=== PATIENT | female | born 1980 | race Caucasian/White ===

== ENCOUNTER 2018-02-10 21:11 | Emergency (ER) | payer MEDICAID, SELFPAY ==
[2018-02-10 21:12] VITALS: BP 152/82; PULSE 105; RESP 16; TEMP 36.6; O2SAT 98; BMI 53.5
[2018-02-10 22:20] VITALS: BP 138/93; PULSE 88; RESP 18; O2SAT 97
--- NOTE | 2018-02-10 22:51 | EKG12_ITS ---
Test Reason : ANXIETY Blood Pressure : / mmHG Vent. Rate : 082 BPM Atrial Rate : 082 BPM P-R Int : 154 ms QRS Dur : 082 ms QT Int : 392 ms P-R-T Axes : 031 061 044 degrees QTc Int : 457 ms Normal sinus rhythm Low voltage QRS Poor R wave progression Borderline ECG Confirmed by YVES ALVARES, MARIA TERESA ([id number]), story editor OLIVER CHAO ([id number] on 02/12/2018 2:26:36 PM Referred By: DR TAMAYO Confirmed By:MARIA TERESA MARINELLI MD
--- NOTE | 2018-02-10 22:51 | RAD_ITS ---
STUDY: X-RAY CHEST REASON FOR EXAM: Female, 37 years old. Shortness of breath. TECHNIQUE: Single AP portable view of the chest. COMPARISON: Chest and left RIBS, April 28, 2014. FINDINGS: Telemetry wires overlie the chest. The lungs are well-expanded. There is linear density at the right lung base which appears to be chronic. No new masses or infiltrates are present. There is no demonstrated pleural abnormality. Normal size heart. Normal mediastinum and katy. Normal visualized pulmonary arteries. Normal visualized aortic arch and descending thoracic aorta. The thoracic spine is obscured by the mediastinum. Normal visualized ribs, clavicles, and shoulders. There is no demonstrated abnormality of the visualized soft tissue structures of the upper abdomen. RAD/Chest 1 View (Portable) IMPRESSION: No acute cardiopulmonary disease or interval change. Electronically Signed: Gregorio Grimes DO at 23:46 EST Tel [phone], Service support ,
[2018-02-10] MEDS: LORazepam 2 MG/ML Syringe 0.5 MG IV (23:19)
[2018-02-10] MEDS: 0.9% Normal Saline 1,000 ML 150 ML IV (23:19)
[2018-02-10 23:55] LABS: Absolute Neutrophil Count 7.6 X10^3/uL (2.0-7.7); Basophil# 0.04 X10^3/uL; Basophil% 0.4 % (0-1); Eosinophil# 0.04 X10^3/uL; Eosinophils% 0.4 % (0-5); Hematocrit 42.9 % (37-47); Hemoglobin 13.8 g/dl (12.0-15.0); Lymphocyte % 21.4 % (19-41); Mean Corp Hgb Conc 32.2 g/gl (32-36); Mean Corpuscular Hgb 30.3 pg (27.0-32.0); Mean Corpuscular Volume 94.1 fL (81-99); Mean Platelet Vol. 11.4 fl (6.2-12.0); Monocyte# 0.74 X10^3/uL; Monocyte% 6.9 % (0-10); Neutrophil # 7.59 X10^3/uL (2.7-7.7); Neutrophil % 70.7 % (47-70); Platelet Count 324 K/mm3 (150-450); RBC Distribution Width CV 13.9 % (11.6-14.6); RBC Distribution Width SD 46.4 fl (35.1-43.9); Red Blood Count 4.56 M/mm3 (4.2-5.4); White Blood Count 10.7 K/mm3 (4.4-11.0)
[2018-02-10 23:56] LABS: POSITIVE COUNT NO; POSITIVE DIFFERENTIAL NO; POSITIVE MORPHOLOGY NO
[2018-02-11 00:19] LABS: Anion Gap 9 (5-15); BUN 10 mg/dL (7-18); Calcium,Total 8.4 mg/dL (8.5-10.1); Chloride 107 mmol/L (98-107); Creatinine, Serum 0.72 mg/dL (0.55-1.02); EST Glomerular Filtration Rate 96 mL/min (>60); Est Glom Filt Rate - Afr Amer 117 mL/min (>60); Glucose 105 mg/dL (74-106); Potassium 4.1 mmol/L (3.5-5.1); Sodium Level 141 mmol/L (136-145); Thyroid Stim Hormone (TSH) 2.63 uIU/mL (0.358-3.74)
--- NOTE | 2018-02-11 00:21 | ED.DCSUM_ITS ---
- ER Visit Summary Date of Service: 02/11/18 Chief Complaint: Anxiety History of Present Illness: The patient is a 37 F with history of depression and anxiety. Patient had sudden onset of unprovoked anxiety/panic attack at 2 AM this morning. She is tried various distraction and relaxation techniques but s ymptoms persist. She describes lightheadedness, occasional chest tightness and heaviness, and feeling of doom. She had been on benzodiazepines in the past for her anxiety, but has been off these medications for the last 2 years. She follows with Vanessa Cantrell at the counseling center. Physical Examination: Blood pressure is 152/82, heart rate 105. Patient is sitting upright in bed in a darkened room. She is intermittently tearful and anxious. Head and neck examination is grossly unremarkable. Heart is regular rate and rhythm. Lung sounds are clear. Abdomen is soft nontender. Psychiatric evaluation reveals no suicidal homicidal ideation. Test Results: EKG is sinus 82 with no sign of acute ischemia. CBC and chemistry studies normal. TSH normal. Chest x-ray shows no acute disease. Emergency Department Course and Treatment: Patient was given IV fluids along with 0.5 mg of IV Ativan. On repeat examination she is significantly improved. She be given a home pack of Ativan tonight and she will follow with the counseling center tomorrow. Treatment Plan: [] Disposition: Discharge Impression: Anxiety This note was generated with [employer] dictation software. It may contain incorrect words, spelling, and punctuation that were not noted in review of the chart prior to signing ED Disposition - Plan for ED Patient: Disposition: Home or Assisted Living Chief Complaint: Anxiety Instructions: ED Panic Attack Referrals: Francheska Ambriz NP-C [NON-STAFF] - 1 Day
[2018-02-11] MEDS: LORazepam 0.5 MG Tablet PO (00:40)
[2018-02-11 00:44] VITALS: BP 130/70; PULSE 88; RESP 13; O2SAT 95
== END 2018-02-11 00:45 | disposition home or self-care (01) ==
PROVIDERS: Emergency Provider Emergency Medicine
DX: F41.9 Anxiety disorder, unspecified (principal); R19.7 Diarrhea, unspecified; E66.9 Obesity, unspecified; F32.9 Major depressive disorder, single episode, unspecified; Z79.899 Other long term (current) drug therapy; Z72.0 Tobacco use
CPT/HCPCS: 71045; 80048; 84443; 85025; 93005; 96361; 96374; 99285; J7030

== ENCOUNTER 2020-04-24 23:02 | Emergency (ER) | payer MEDICAID, SELFPAY ==
[2020-04-24 23:03] VITALS: BP 160/106; PULSE 63; RESP 20; RESP 22; TEMP 36.1; O2SAT 100; BMI 58.0
--- NOTE | 2020-04-24 23:08 | RAD_ITS ---
STUDY: X-RAY - LEFT RADIUS AND ULNA REASON FOR EXAM: Female, 39 years old. Other, MULTIPLE PUNCTURE WOUNDS TO RT HAND AND LT FOREARM TECHNIQUE: 2 view(s) of the forearm. COMPARISON: None. FINDINGS: There is no demonstrated soft tissue swelling. Normal visualized radius. Normal visualized ulna. There is no demonstrated acute fracture. RAD/Forearm 2 Views IMPRESSION: Normal x-ray examination of the radius and ulna. Electronically Signed: Emiliano Busby MD at 23:46 EDT , Service support ,
--- NOTE | 2020-04-24 23:08 | RAD_ITS ---
STUDY: X-RAY - RIGHT HAND REASON FOR EXAM: Female, 39 years old. Other, MULTIPLE PUNCTURE WOUNDS TO RT HAND AND LT FOREARM TECHNIQUE: 3 view(s) of the hand. COMPARISON: None. FINDINGS: Normal radiocarpal articulation. Normal distal radioulnar joint. Normal visualized carpal bones. Normal carpal articulations Normal carpometacarpal articulation of the thumb. Normal second through fifth carpometacarpal joints. Normal metacarpi. Normal joints. No fractures seen. The soft tissue structures are unremarkable. RAD/Hand Min 3 Views IMPRESSION: Normal x-ray examination of the hand. Electronically Signed: Emiliano Busby MD at 23:47 EDT , Service support ,
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
[2020-04-24] MEDS: Lidocaine/Epi/Tetracaine 50 ML 1 APPLIC TOPICAL (23:15)
[2020-04-24] MEDS: metroNIDAZOLE 500 MG Tablet PO (23:23)
[2020-04-24] MEDS: LORazepam 0.5 MG Tablet PO (23:23)
[2020-04-24] MEDS: CEFUROXIME AXETIL 250 MG TABLET 500 MG PO (23:23)
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
[2020-04-25 00:18] VITALS: BP 143/98
[2020-04-25] MEDS: Diphth,Pertuss(Acell),Tet Vac 0.5 ML Vial IM (00:26)
== END 2020-04-25 00:29 | disposition home or self-care (01) ==
PROVIDERS: Emergency Provider Emergency Medicine
DX: S21.052A Open bite of left breast, initial encounter (principal); S51.852A Open bite of left forearm, initial encounter; S41.051A Open bite of right shoulder, initial encounter; S61.452A Open bite of left hand, initial encounter; Z23 Encounter for immunization; W54.0XXA Bitten by dog, initial encounter; Y93.9 Activity, unspecified; Y92.9 Unspecified place or not applicable; Y99.9 Unspecified external cause status; F41.9 Anxiety disorder, unspecified; F17.200 Nicotine dependence, unspecified, uncomplicated; E66.9 Obesity, unspecified
CPT/HCPCS: 12001; 73090; 73130; 90471; 90715; 99285

== ENCOUNTER 2020-08-11 21:45 | Emergency (ER) | payer MEDICAID, SELFPAY ==
[2020-08-11 21:46] VITALS: BP 173/90; PULSE 107; RESP 18; TEMP 36; O2SAT 95; BMI 54.2
--- NOTE | 2020-08-11 22:15 | EKG12_ITS ---
Test Reason : CP Blood Pressure : / mmHG Vent. Rate : 099 BPM Atrial Rate : 100 BPM P-R Int : 148 ms QRS Dur : 080 ms QT Int : 358 ms P-R-T Axes : 030 076 046 degrees QTc Int : 459 ms Normal sinus rhythm Low Voltage QRS Confirmed by YVES ALVARES, MARIA TERESA ([id number]), editor continuity and script SHAJI PEREZ ([id number]) on 08/15/2020 1:17:18 PM Referred By: ANTWAN Confirmed By:MARIA TERESA MARINELLI MD
--- NOTE | 2020-08-11 22:16 | EDS_ITS ---
HPI History of Present Illness Chief Complaint: Abd Pain Informant: patient Onset/Context/Timing Onset: Today Context: Gradual Onset Current Severity: Moderate Maximum Severity: Severe Narrative Narrative: Patient presents with right upper quadrant pain that started around 330 this afternoon. Patient just returned from a picnic. She states pain was constant and persisted. Around 830 this evening she developed nausea and vomiting. She did have some chills. She did have a bowel movement thinking that may make her feel better but no improvement in pain was noted. PFSH PFS Medical History Anxiety Depression Home Medications venlafaxine 150 mg PO DAILY 07/18/13 [History Last Taken Unknown] dicyclomine 10 mg PO TID PRN #14 cap 08/12/20 [Rx Last Taken Unknown] ondansetron 4 mg PO Q8H PRN #10 tab 08/12/20 [Rx Last Taken Unknown] Allergy/AdvReac Type Severity Reaction Status Date / Time Penicillins Allergy Mild Itching Verified 02/10/18 21:15 Surgical History History of cholecystectomy Social History Smoking Status: Current every day smoker tobacco type: cigarettes ROS ROS ED Constitutional Constitutional ED: Denies chills or fever(s) Eyes Eyes: Denies change in vision ENT ENT ED: Denies sore throat Cardiovascular Cardiovascular: Denies chest pain Respiratory/Chest Respiratory/Chest: Denies cough or dyspnea Gastrointestinal Gastrointestinal: Reports abdominal pain, nausea and vomiting; Denies diarrhea Genitourinary Genitourinary ED: Denies dysuria Musculoskeletal Musculoskeletal: Denies back pain Integumentary Denies rash Neurologic Neurologic: Denies headache(s) or weakness Psychiatric Psychiatric: Denies anxiety or depression Endocrine Endocrinology: Denies polydipsia or polyuria Allergic/Immunologic Allergic/Immunologic ED: Denies urticaria EXAM Physical Exam Const Vital Signs: 08/11/20 21:46 08/11/20 23:31 08/12/20 01:37 Temperature 96.8 F L Temperature Source Temporal Pulse Rate 107 H 84 89 Respiratory Rate 18 18 16 Blood Pressure 173/90 H 156/96 H 148/92 H Blood Pressure Mean 117 116 Pulse Ox 95 93 94 Oxygen Delivery Method Room Air Room Air Positive well nourished and well developed General Appearance ED: well developed HEENT Reports normocephalic and head/scalp atraumatic Eyes PERRL and EOMs intact bilaterally Neck supple Chest Wall inspection of chest normal and palpation of chest normal Resp normal respiratory effort and clear to auscultation bilaterally Cardio regular rate and regular rhythm GI Auscultation: hypoactive bowel sounds Palpation: soft and tender RUQ; Negative for guarding or rebound tenderness present Back/Spine no CVA tenderness Extremity normal to inspection Neuro oriented x3 and no sensory deficits noted Sensorium / Orientation: alert Motor Exam: strength 5/5 throughout Psych mental status grossly normal Skin no rashes or lesions noted MDM MDM MDM Narrative Medical decision making narrative: Patient was given morphine and Zofran along with IV fluids. Labs and CT scan are obtained. Lab Data Attestation: I reviewed the patient's lab results. Labs: Laboratory Results - last 24 hr 08/11/20 08/11/20 08/11/20 22:02 22:02 22:02 WBC 11.3 H RBC 5.07 Hgb 14.8 Hct 47.2 H MCV 93.1 MCH 29.2 MCHC 31.4 L RDW Std Deviation 49.7 H RDW Coeff of Tom 14.6 Plt Count 393 MPV 11.2 Immature Gran % (Auto) 0.400 Neut % (Auto) 71.3 H Lymph % (Auto) 21.1 [place] % (Auto) 6.2 Eos % (Auto) 0.5 Baso % (Auto) 0.5 Absolute Neuts (auto) 8.0 H Absolute Lymphs (auto) 2.38 Nucleated RBC % 0 Sodium 137 Potassium 3.9 Chloride 101 Carbon Dioxide 28.0 Anion Gap 8 BUN 11 Creatinine 1.02 Estim Creat Clear Calc 65.31 Est GFR (MDRD) Af Amer 76 Est GFR (MDRD) Non-Af 63 BUN/Creatinine Ratio 10.8 Glucose 128 H Calcium 9.0 Total Bilirubin 0.50 Direct Bilirubin 0.11 AST 19 ALT 16 Alkaline Phosphatase 112 Troponin I High Sens < 3.0 L Total Protein 8.1 Albumin 3.8 Globulin 4.3 H Lipase 68 L Serum , Qual NEGATIVE Radiography Diagnostic Testing: Radiology Impression Abdomen/Pelvis CT 08/12/20 22:15 IMPRESSION: Findings suggestive of enteritis versus early or partial small bowel obstruction. No acute appendicitis. Mild free fluid in the pelvis, etiology indeterminate. Nonvisualization of gallbladder, correlation with history of cholecystectomy. Otherwise unremarkable abdominal viscera. Electronically Signed: Chastity Lechuga MD at 0:49 EDT , Service support , EKG Initial EKG: Attestation: I personally reviewed and interpreted this EKG as follows: Interpretation: Sinus Rhythm (Sinus at 99 with no acute ischemia.) Treatment and Re-Evaluation Comments:: Lab work is largely unremarkable. Mild elevation in white count. Normal LFTs and lipase. CT scan reveals evidence of enteritis versus early or partial small bowel obstruction. Patient did have a bowel movement today. I do not appreciate significant air-fluid levels. I believe her symptoms and presentation are more consistent with enteritis. This was discussed with the patient and she is in agreement. She will be treated with analgesics, Bentyl, and antiemetics. She is given return instructions. Discharge Plan Triage Chief Complaint: Abd Pain ED Provider: Estrellita Kumar Dx/Rx/DC Orders Clinical Impression: Abdominal pain, Enteritis Instructions: ED Abdominal Pain Unkn Cause Fem, ED Food Poison Or Gastroenteritis Prescriptions: New dicyclomine 10 mg capsule 10 mg PO TID PRN (Reason: abd pain) Qty: 14 RF: 0 ondansetron 4 mg tablet,disintegrating 4 mg PO Q8H PRN (Reason: nausea and vomiting) Qty: 10 RF: 0 No Action venlafaxine 25 MG tablet 150 mg PO DAILY RF: 0 Primary Care Provider: Care Physician,No Primary Referrals: Maggie Magaña MD [STAFF PHYSICIAN] - 1 Week if not improving Care Physician,No Primary [Primary Care Provider] - Disposition Disposition: Home, Self Care Discharge Date/Time: 08/12/20 01:40
[2020-08-11] MEDS: Ondansetron 4 MG/2 ML Vial IV (22:27)
[2020-08-11] MEDS: 0.9% Normal Saline 1,000 ML 150 ML IV (22:27)
[2020-08-11] MEDS: Morphine 4 MG/ML Syringe IV (22:29)
[2020-08-11 22:37] LABS: AST(SGOT) 19 U/L (15-37); Alanine Aminotransfer ALT/SGPT 16 U/L (13-56); Albumin, Serum 3.8 g/dL (3.2-5.0); Alkaline Phosphatase 112 U/L (45-117); Anion Gap 8 (5-15); BUN 11 mg/dL (7-18); BUN/Creat Ratio 10.8 RATIO (10-20); Bilirubin, Direct 0.11 mg/dL (0.00-0.30); Chloride 101 mmol/L (98-107); Creatinine, Serum 1.02 mg/dL (0.55-1.02); EST Glomerular Filtration Rate 63 mL/min (>60); Est Glom Filt Rate - Afr Amer 76 mL/min (>60); Estimated Creatinine Clearance 65.31 ml/min; Globulin 4.3 g/dL (2.2-4.2); Glucose 128 mg/dL (74-106); Lipase 68 U/L (73-393); Potassium 3.9 mmol/L (3.5-5.1); Protein, Total 8.1 g/dL (6.4-8.2); Sodium Level 137 mmol/L (136-145); Troponin-I HS < 3.0 pg/mL (3.0-53.7)
[2020-08-11 22:39] LABS: Absolute Lymphocyte Count 2.38 X10^3/uL (0.83-4.51); Basophil# 0.06 X10^3/uL; Basophil% 0.5 % (0-1); Eosinophil# 0.06 X10^3/uL; Eosinophils% 0.5 % (0-5); Hematocrit 47.2 % (37-47); Hemoglobin 14.8 g/dL (12.0-15.0); Lymphocyte # 2.38 X10^3/ul (0.83-4.51); Lymphocyte % 21.1 % (19-41); Mean Corp Hgb Conc 31.4 g/dL (32-36); Mean Corpuscular Hgb 29.2 pg (27.0-32.0); Mean Corpuscular Volume 93.1 fL (81-99); Mean Platelet Vol. 11.2 fl (6.2-12.0); Monocyte% 6.2 % (0-10); NRBC Flagged by Analyzer 0 % (0-5); Neutrophil # 8.04 X10^3/uL (2.7-7.7); Neutrophil % 71.3 % (47-70); Platelet Count 393 K/mm3 (150-450); RBC Distribution Width CV 14.6 % (11.6-14.6); RBC Distribution Width SD 49.7 fl (35.1-43.9); Red Blood Count 5.07 M/mm3 (4.2-5.4); White Blood Count 11.3 K/mm3 (4.4-11.0)
[2020-08-11 22:49] LABS: Internal QC Validated? YES +Cl - CLEAR BKGD; Pregnancy, Serum, hCG Quali. NEGATIVE Negative
[2020-08-11] MEDS: HYDROmorphone 0.5 MG/0.5 ML SYRINGE IV (23:17)
[2020-08-11 23:31] VITALS: BP 156/96; PULSE 84; RESP 18; O2SAT 93
[2020-08-12 01:37] VITALS: BP 148/92; PULSE 89; RESP 16; O2SAT 94
--- NOTE | 2020-08-12 22:15 | CT_ITS ---
STUDY: CT ABDOMEN AND PELVIS WITH CONTRAST REASON FOR EXAM: Female, 39 years old. abd pain -- IV PO Contrast RADIATION DOSAGE (If Supplied By Facility): CTDIvol = ( 20.40 ) mGy, DLP = ( 1355.41 ) mGycm TECHNIQUE: Transaxial images were obtained from the dome of the diaphragm to the symphysis pubis without oral contrast. Oral and amp; IV Gastrografin and amp; 100mL Isovue-300 was administered. Sagittal and coronal images were reconstructed. Individualized dose optimization techniques were used for this CT. COMPARISON: None. FINDINGS: The visualized lung bases are unremarkable. The visualized portions of the heart are within normal limits. Normal liver. The gallbladder is not visualized suggestive of previous cholecystectomy. Normal spleen. Normal pancreas. Normal bilateral adrenal glands. Normal right kidney. Normal left kidney. Normal visualized stomach. Multilevel loops of mid proximal small bowel distended up to a maximum diameter of 2.7 cm with borderline thickening of the wall. The distal small bowel loops are decompressed, combination of findings suggestive of partial small bowel obstruction or enteritis. The colon is decompressed. The appendix is visualized and appears normal. Normal abdominal aorta. Normal inferior vena cava. Normal retroperitoneum. Normal urinary bladder. Anteverted uterus. Mild free fluid in the pelvis. Normal abdominal wall. Normal osseous structures. CT/Abdomen/Pelvis WITH Contrast IMPRESSION: Findings suggestive of enteritis versus early or partial small bowel obstruction. No acute appendicitis. Mild free fluid in the pelvis, etiology indeterminate. Nonvisualization of gallbladder, correlation with history of cholecystectomy. Otherwise unremarkable abdominal viscera. Electronically Signed: Chastity Lechuga MD at 0:49 EDT , Service support ,
== END 2020-08-12 01:40 | disposition home or self-care (01) ==
PROVIDERS: Emergency Provider Emergency Medicine
DX: K52.9 Noninfective gastroenteritis and colitis, unspecified (principal); F32.9 Major depressive disorder, single episode, unspecified; F41.9 Anxiety disorder, unspecified; F17.210 Nicotine dependence, cigarettes, uncomplicated; Z79.899 Other long term (current) drug therapy; Z90.49 Acquired absence of other specified parts of digestive tract
CPT/HCPCS: 74177; 80048; 80076; 83690; 84484; 84703; 85025; 93005; 96361; 96365; 96375; 99284; J7030; Q9967; A4216; J2405

== ENCOUNTER 2021-04-14 09:50 | Emergency (ER) | payer MEDICAID, SELFPAY ==
[2021-04-14 09:51] VITALS: BP 166/108; PULSE 100; RESP 18; TEMP 36.7; O2SAT 100; BMI 53.6
--- NOTE | 2021-04-14 10:26 | ED.VIS.DENTA ---
HPI History of Present Illness Chief Complaint: Dental Informant: patient Onset/Context/Timing Onset: Days (5) Context: Gradual Onset Timing: Continuous Quality: Radiant Location: Left lower premolar Worsened by: Cold air Relieved by: - (Nothing) Narrative Narrative: Patient presents with dental pain that has been getting worse over the past 5 days. Patient states it is over the left lower premolar area. Patient states it is worse when is exposed to cold. Patient states nothing has been helping. Patient states she has been taking Tylenol and Orajel with no relief. Patient admits to some mild swelling of her lower jaw. Patient denies any fevers or chills. Patient admits to some cold sensitivity. Patient describes her pain as radiant. Patient denies any difficulty breathing or difficulty swallowing. Patient states she went to an urgent care and was given a prescription for clindamycin. Patient states she was not given a prescription for anything for pain. [facility] Medical History (Updated 04/14/21 @ 10:[address] Gustavo Multani DO) Anxiety Depression Home Medications venlafaxine 150 mg PO DAILY 07/18/13 [History Last Taken Unknown] dicyclomine 10 mg PO TID PRN #14 cap 08/12/20 [Rx Last Taken Unknown] ondansetron 4 mg PO Q8H PRN #10 tab 08/12/20 [Rx Last Taken Unknown] hydrocodone-acetaminophen 1 tab PO Q8H PRN PRN 2 Days #6 tablet 04/14/21 [Rx Last Taken Unknown] Allergy/AdvReac Type Severity Reaction Status Date / Time Penicillins Allergy Mild Itching Verified 04/14/21 09:53 Surgical History (Updated 04/14/21 @ 10:[address] Gustavo Multani DO) History of cholecystectomy Hx of dilation and curettage Hx of tonsillectomy Hx of tubal ligation Social History Smoking Status: Current every day smoker tobacco type: cigarettes ROS ROS ED Constitutional Constitutional ED: Denies chills or fever(s) Eyes Eyes: Denies blurry vision or change in vision ENT ENT ED: Denies rhinorrhea or sore throat Cardiovascular Cardiovascular: Denies chest pain or palpitations Respiratory/Chest Respiratory/Chest: Denies cough or dyspnea Gastrointestinal Gastrointestinal: Reports nausea and vomiting Genitourinary Genitourinary ED: Denies dysuria or hematuria Musculoskeletal Musculoskeletal: Denies back pain or neck pain Integumentary Denies abscess or rash Neurologic Neurologic: Reports headache(s); Denies weakness Psychiatric Psychiatric: Reports anxiety Allergic/Immunologic Allergic/Immunologic ED: Denies mouth swelling or urticaria EXAM Physical Exam Const Vital Signs: 04/14/21 09:51 Temperature 98.1 F Temperature Source Temporal Pulse Rate 100 Respiratory Rate 18 Blood Pressure 166/108 H Blood Pressure Mean 127 Pulse Ox 100 Oxygen Delivery Method Room Air Positive well nourished, well developed and obese General Appearance ED: well developed and NAD Nutritional Appearance: obese HEENT HEENT Narrative: There is dental caries noted over the left lower first premolar and canine teeth. There is some mild gingival edema around this area. There is tenderness to percussion over these teeth. There is no sublingual edema or erythema. Oral mucosa is pink and moist. Oropharynx is clear. Airway is patent. Mouth ED: Yes oral and palatal mucosa normal, Yes lips normal and Yes tongue normal Mouth: oral and palatal mucosa normal, lips normal and tongue normal Teeth and Gingiva: caries Neck no lymphadenopathy, supple and no JVD General: Negative for anterior neck swelling or submandibular swelling Neuro oriented x3, CN's II-XII intact bilaterally, moves all extremities, no focal motor deficits and no sensory deficits noted Sensorium / Orientation: alert Psych mental status grossly normal MDM MDM MDM Narrative Medical decision making narrative: Patient was instructed to continue her clindamycin as prescribed. Patient was given a prescription for a short course of [place]. Patient was instructed to follow-up with a dentist as soon as possible. Patient understood and was agreeable with the plan. All questions were answered. Discharge Plan Triage Chief Complaint: Dental ED Provider: Gustavo Multani Dx/Rx/DC Orders Clinical Impression: Infected dental caries Instructions: ED Dental Pain Prescriptions: New hydrocodone-acetaminophen [hydrocodone-acetaminophen] 1 TABLET tablet 1 tab PO Q8H PRN PRN (Reason: Pain) 2 Days Qty: 6 RF: 0 No Action venlafaxine 25 MG tablet 150 mg PO DAILY RF: 0 dicyclomine 10 mg capsule 10 mg PO TID PRN (Reason: abd pain) Qty: 14 RF: 0 ondansetron 4 mg tablet,disintegrating 4 mg PO Q8H PRN (Reason: nausea and vomiting) Qty: 10 RF: 0 Primary Care Provider: Care Physician,No Primary Referrals: Care Physician,No Primary [Primary Care Provider] - Disposition Disposition: Home, Self Care
== END 2021-04-14 10:48 | disposition home or self-care (01) ==
LOC: ED 10:38
PROVIDERS: Emergency Provider Emergency Medicine; Visit Provider Emergency Medicine
DX: K02.9 Dental caries, unspecified (principal); R11.2 Nausea with vomiting, unspecified; R51.9 Headache, unspecified; F17.210 Nicotine dependence, cigarettes, uncomplicated
CPT/HCPCS: 99282

== ENCOUNTER 2022-03-20 07:59 | Emergency (ER) | payer MEDICAID, SELFPAY ==
[2022-03-20 08:01] VITALS: BP 141/92; PULSE 108; RESP 16; TEMP 35.3; O2SAT 99; BMI 56.3
[2022-03-20] MEDS: Clindamycin HCl 150 MG Capsule 300 MG PO (08:49)
[2022-03-20] MEDS: Diphth,Pertuss(Acell),Tet Vac 0.5 ML Vial IM (08:49)
--- NOTE | 2022-03-20 09:27 | EDS_ITS ---
HPI History of Present Illness Chief Complaint: Cellulitis Informant: patient Onset/Context/Timing Onset: Days (5) Context: Gradual Onset Timing: Continuous Quality: Pressure, dull Location: Distal phalanx right index finger Worsened by: Palpation Relieved by: Nothing Narrative Narrative: Patient presents with redness and swelling to her distal phalanx of her right index finger that has been getting worse over the last 5 days. Patient states has been constant. Patient states it is gradually getting worse. Patient states that she noted some swollen lymph nodes in her right axilla today. Patient admits to some tingling over the tip of her finger. Patient denies any weakness. Patient states her pain is worse whenever she touches it or bumps it on anything. Patient denies any discharge or drainage. Patient denies any fevers or chills. PFSH PFS Medical History Anxiety Depression Home Medications venlafaxine 25 mg tablet 150 mg PO DAILY 07/18/13 [History Last Taken Unknown] dicyclomine 10 mg capsule 10 mg PO TID PRN abd pain #14 caps 08/12/20 [Rx Last Taken Unknown] ondansetron 4 mg disintegrating tablet 4 mg PO Q8H PRN nausea and vomiting #10 tabs 08/12/20 [Rx Last Taken Unknown] hydrocodone-acetaminophen 5-325mg 5mg-325mg 1 tab PO Q8H PRN PRN Pain 2 days #6 TABLETS 04/14/21 [Rx Last Taken Unknown] clindamycin HCl 150 mg capsule 450 mg PO TID 10 days #90 CAPSULES 03/20/22 [Rx Last Taken Unknown] Allergy/AdvReac Type Severity Reaction Status Date / Time Penicillins Allergy Mild Itching Verified 03/20/22 08:00 Surgical History History of cholecystectomy Hx of dilation and curettage Hx of tonsillectomy Hx of tubal ligation Social History Smoking Status: Current every day smoker tobacco type: cigarettes ROS ROS ED Constitutional Constitutional ED: Denies chills or fever(s) Eyes Eyes: Denies blurry vision or change in vision ENT ENT ED: Denies rhinorrhea or sore throat Cardiovascular Cardiovascular: Denies chest pain or palpitations Respiratory/Chest Respiratory/Chest: Denies cough or dyspnea Gastrointestinal Gastrointestinal: Denies nausea or vomiting Genitourinary Genitourinary ED: Denies dysuria or hematuria Musculoskeletal Musculoskeletal: Denies back pain or neck pain Integumentary Reports abscess and rash Neurologic Neurologic: Denies headache(s) or weakness Allergic/Immunologic Allergic/Immunologic ED: Denies mouth swelling or urticaria EXAM Physical Exam Const Vital Signs: 03/20/22 08:01 Temperature 95.6 F L Temperature Source Temporal Pulse Rate 108 H Respiratory Rate 16 Blood Pressure 141/92 H Blood Pressure Mean 108 Pulse Ox 99 Oxygen Delivery Method Room Air Positive well nourished, well developed and obese General Appearance ED: well developed and NAD Nutritional Appearance: obese HEENT Reports moist mucous membranes Neck supple and no JVD Extremity Extremity Narrative: There is tenderness, edema, and erythema over the distal phalanx of the right index finger. There is mild fluctuance along the eponychium. There is no active discharge or drainage. Sensation was intact to light touch in all digits. Capillary refill was less than 2 seconds in all digits. There is no t enderness along the flexor tendon. There is no fusiform swelling. There is good range of motion in flexion extension of the MP, PIP, and DIP joints. General Extremety ED: Yes edema and tenderness General Extremity: edema Neuro oriented x3, CN's II-XII intact bilaterally and no sensory deficits noted Sensorium / Orientation: alert Motor Exam: strength 5/5 throughout Psych mental status grossly normal MDM MDM MDM Narrative Medical decision making narrative: Differential diagnosis includes eponychia, paronychia, felon, and cellulitis. Patient was advised of the need for incision and drainage. Patient is agreeable with this. Informed consent was signed. The right index finger was cleaned and anesthetized with 1% lidocaine via digital block. A small incision was made over the lateral aspect of the distal phalanx of the right index finger. There is no purulent drainage noted. Bacitracin dressing was applied. Patient was given a dose of clindamycin here. Patient was given a prescription for clindamycin. Patient was instructed to keep the area clean. Patient was instructed to follow-up with her primary care physician in 5 to 7 days. Patient understood and was agreeable with the plan. All questions were answered. Discharge Plan Triage Chief Complaint: Cellulitis ED Provider: Gustavo Multani Dx/Rx/DC Orders Clinical Impression: Felon of finger of right hand, Morbid obesity with BMI of 50.0-59.9, adult Instructions: ED Abscess Incision And Drainage, ED Paronychia of the Finger or Toe Prescriptions: New clindamycin HCl 150 mg capsule 450 mg PO TID 10 Days Qty: 90 0RF No Action venlafaxine 25 MG tablet 150 mg PO DAILY dicyclomine 10 mg capsule 10 mg PO TID PRN (Reason: abd pain) Qty: 14 0RF ondansetron 4 mg tablet,disintegrating 4 mg PO Q8H PRN (Reason: nausea and vomiting) Qty: 10 0RF hydrocodone-acetaminophen [hydrocodone-acetaminophen] 1 TABLET tablet 1 tab PO Q8H PRN PRN (Reason: Pain) 2 Days Qty: 6 0RF Primary Care Provider: Care Physician,No Primary Referrals: Care Physician,No Primary [Primary Care Provider] - Disposition Disposition: Home, Self Care
[2022-03-20] MEDS: Lidocaine 1% (20 ml mdv) 20 ML Vial INFILT (09:45)
== END 2022-03-20 09:59 | disposition home or self-care (01) ==
PROVIDERS: Emergency Provider Emergency Medicine; Visit Provider Emergency Medicine
DX: L03.011 Cellulitis of right finger (principal); E66.01 Morbid (severe) obesity due to excess calories; Z68.43 Body mass index [BMI] 50.0-59.9, adult; F17.210 Nicotine dependence, cigarettes, uncomplicated; Z23 Encounter for immunization
CPT/HCPCS: 26010; 10060; 90715; 99283

== ENCOUNTER 2022-03-24 10:52 | Emergency (ER) | payer MEDICAID, SELFPAY ==
[2022-03-24 10:53] VITALS: BP 164/99; PULSE 97; RESP 18; TEMP 35.5; O2SAT 99; BMI 56.2
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
--- NOTE | 2022-03-24 11:15 | RAD_ITS ---
STUDY: X-RAY - LEFT FOOT CLINICAL: Female, 41 years old. Pain following a fall. TECHNIQUE: 3 view(s) of the foot. COMPARISON: None. FINDINGS: Normal talus, calcaneus, and tarsal bones. Normal visualized subtalar, talonavicular, calcaneocuboid, tarsal and tarsometatarsal articulations. Normal metatarsi. Normal metatarsophalangeal joint of the great toe. Normal tibial and fibular sesamoid bones. Normal interphalangeal joint of the great toe. Normal phalanges of the great toe. Normal second through fifth metatarsophalangeal joints. Normal interphalangeal joints and phalanges of the lesser toes. Soft tissue swelling. RAD/Foot min 3 Views IMPRESSION: Soft tissue swelling. No fracture is seen. Electronically Signed: Rudy Sanders MD at 11:57 EST ,
== END 2022-03-24 11:52 | disposition home or self-care (01) ==
PROVIDERS: Emergency Provider Emergency Medicine; Visit Provider Emergency Medicine
DX: S90.32XA Contusion of left foot, initial encounter (principal); F17.210 Nicotine dependence, cigarettes, uncomplicated; R07.9 Chest pain, unspecified; W01.0XXA Fall on same level from slipping, tripping and stumbling without subsequent striking against object, initial encounter
CPT/HCPCS: 73630; 99283

== ENCOUNTER 2022-06-03 10:14 | Emergency (ER) | payer MEDICAID, SELFPAY ==
[2022-06-03 10:14] VITALS: BP 148/108; PULSE 108; RESP 16; TEMP 36.4; O2SAT 97; BMI 55.6
--- NOTE | 2022-06-03 10:41 | ED.VIS.CHEST ---
HPI History of Present Illness Chief Complaint: Chest Pain Informant: patient Onset/Context/Timing Onset: Days Activity at onset: gradual Timing: Continuous Quality: Positive for Sharp and Stabbing Location: Right Parasternal Worsened By: Nothing Relieved By: Nothing Associated Symptoms: Positive for Nausea, Diaphoresis and Palpitations; Negative for Vomiting, Dyspnea, Cough, Fever, Lightheadedness or Acid Reflux Narrative Narrative: Patient presents with chest pain that has been constant for the past couple days. Patient states it came on gradually. Patient describes it as a stabbing sensation. Patient states it is over the right parasternal area. Patient states it radiates into her back. Patient states nothing makes it better nothing makes it worse. Patient admits to some nausea but denies any vomiting. Patient does admit to some diaphoresis and palpitations. Patient denies any cough or shortness of breath. Patient denies any fevers or chills. CVD Risk Factors: Positive for Family History 1' </=55 and Smoking; Negative for Hypertension, Diabetes or Hypercholesterolemia PE Risk Factors: Negative for Recent Travel/Surgery, Recent Immobilization, Prior DVT or PE or Cancer [facility] Medical History Anxiety Depression Home Medications venlafaxine 25 mg tablet 150 mg PO DAILY 07/18/13 [History Last Taken Unknown] dicyclomine 10 mg capsule 10 mg PO TID PRN abd pain #14 caps 08/12/20 [Rx Last Taken Unknown] ondansetron 4 mg disintegrating tablet 4 mg PO Q8H PRN nausea and vomiting #10 tabs 08/12/20 [Rx Last Taken Unknown] hydrocodone-acetaminophen 5-325mg 5mg-325mg 1 tab PO Q8H PRN PRN Pain 2 days #6 TABLETS 04/14/21 [Rx Last Taken Unknown] clindamycin HCl 150 mg capsule 450 mg PO TID 10 days #90 CAPSULES 03/20/22 [Rx Last Taken Unknown] Allergy/AdvReac Type Severity Reaction Status Date / Time Penicillins Allergy Mild Itching Verified 06/03/22 10:14 Surgical History History of cholecystectomy Hx of dilation and curettage Hx of tonsillectomy Hx of tubal ligation Social History Smoking Status: Current every day smoker tobacco type: cigarettes ROS ROS ED Constitutional Constitutional ED: Denies chills or fever(s) Eyes Eyes: Denies blurry vision or change in vision ENT ENT ED: Denies rhinorrhea or sore throat Cardiovascular Cardiovascular: Reports chest pain and palpitations Respiratory/Chest Respiratory/Chest: Denies cough or dyspnea Gastrointestinal Gastrointestinal: Reports nausea; Denies abdominal pain or vomiting Genitourinary Genitourinary ED: Denies dysuria or hematuria Musculoskeletal Musculoskeletal: Reports back pain; Denies neck pain Integumentary Denies abscess or rash Neurologic Neurologic: Denies headache(s) or weakness Allergic/Immunologic Allergic/Immunologic ED: Denies mouth swelling or urticaria EXAM Physical Exam Const Vital Signs: 06/03/22 10:14 06/03/22 11:13 06/03/22 11:17 Temperature 97.6 F L Temperature Source Temporal Pulse Rate 108 H 89 Respiratory Rate 16 18 Blood Pressure 148/108 H 152/97 H Blood Pressure Mean 121 115 Pulse Ox 97 98 Oxygen Delivery Method Room Air Room Air Room Air 06/03/22 13:00 06/03/22 14:00 06/03/22 15:12 Temperature 97.8 F Temperature Source Pulse Rate 78 78 84 Respiratory Rate 16 16 16 Blood Pressure 143/78 H 146/78 H 138/64 H Blood Pressure Mean 99 100 Pulse Ox 98 100 100 Oxygen Delivery Method Room Air Room Air Positive well nourished, well developed and obese General Appearance ED: well developed and NAD Nutritional Appearance: obese HEENT normocephalic and atraumatic Eyes PERRL and EOMs intact bilaterally Neck supple and no JVD Chest Wall palpation of chest normal Resp normal respiratory effort and clear to auscultation bilaterally Effort and Inspection: Negative for respiratory distress Cardio regular rhythm and no murmurs Rate: tachycardic GI normal to inspection, nondistended, normoactive bowel sounds, soft to palpation, non-tender and non-distended Extremity normal to inspection General Extremety ED: Negative for edema or tenderness General Extremity: Negative for edema Neuro oriented x3, CN's II-XII intact bilaterally and no sensory deficits noted Sensorium / Orientation: awake and alert Motor Exam: strength 5/5 throughout Psych mental status grossly normal Mood & Affect: anxious Heart Score History: Slightly/Non-Suspicious ECG: Normal Age: </= 45 years Risk Factors: 1 or 2 Risk Factors Troponin: </= Normal Limit Score: 1 MDM MDM MDM Narrative Medical decision making narrative: Differential diagnosis includes cardiac dysrhythmia, cardiac ischemia, pulmonary embolism, pneumonia, musculoskeletal pain, and anxiety. EKG will be obtained to assess for cardiac dysrhythmia and cardiac ischemia. Chest x-ray will be obtained to assess for pneumonia. CBC will be obtained to assess for leukocytosis and anemia. Basic metabolic profile will be obtained to assess for electrolyte abnormality and renal function. High-sensitivity troponin will be obtained to assess for cardiac ischemia. D-dimer will be obtained to assess for pulmonary embolism. Lab Data Attestation: I reviewed the patient's lab results. Lab results narrative: CBC was reviewed and was within normal limits. Basic metabolic profile was reviewed and was within normal limits. High-sensitivity troponin was reviewed and was normal at 3. D-dimer was reviewed and was slightly elevated at 0.56. Labs: Laboratory Results - last 24 hr 06/03/22 06/03/22 06/03/22 11:19 11:19 11:19 WBC 8.9 RBC 4.75 Hgb 13.8 Hct 43.4 MCV 91.4 MCH 29.1 MCHC 31.8 L RDW Std Deviation 46.5 H RDW Coeff of Tom 13.8 Plt Count 353 MPV 10.9 Immature Gran % (Auto) 0.300 Neut % (Auto) 72.5 H Lymph % (Auto) 20.9 [place] % (Auto) 5.7 Eos % (Auto) 0.2 Baso % (Auto) 0.4 Absolute Neuts (auto) 6.4 Absolute Lymphs (auto) 1.86 Nucleated RBC % 0 D-Dimer Quant (PE/DVT) 0.56 H* Sodium 136 Potassium 4.3 Chloride 105 Carbon Dioxide 29.0 Anion Gap 2 L BUN 9 Creatinine 0.87 Estim Creat Clear Calc 72.00 Est GFR (MDRD) Af Amer 91 Est GFR (MDRD) Non-Af 75 BUN/Creatinine Ratio 10.4 Glucose 106 Calcium 9.1 Troponin I High Sens 3 Radiography Chest X-Ray - ED: 1 View, Read by ED Physician, Read by Radiologist and No Acute Disease CTA PE Study: No Evidence of PE and No Evidence of Dissection Diagnostic Testing: Clinical Impression(s) from Imaging Studies Chest X-Ray 06/03/22 11:20 IMPRESSION: No acute cardiopulmonary process identified. Electronically Signed: Lizbeth Herrera MD at 11:57 EDT , Chest CTA 06/03/22 12:10 IMPRESSION: No evidence of pulmonary embolism with limited evaluation of the more distal pulmonary artery branches due to artifact. Hepatic steatosis. Electronically Signed: Lizbeth Herrera MD at 13:25 EDT , Portable 1 view chest x-ray was obtained. On my independent interpretation, lung palomares are clear. There is normal cardiac silhouette. Bony thorax is normal. There is no acute process noted. Radiologist also interpreted the x-ray and agrees. Because of the elevated D-dimer, CTA of the chest was obtained. There is no evidence of pulmonary embolism or aortic dissection. This was interpreted by the radiologist and was also independently reviewed by myself. EKG Initial EKG: Interpretation: No Acute Injury Pattern and Sinus Tachycardia (102) Comments: EKG was obtained. On my independent interpretation, it showed a sinus tachycardia with a rate of 102. [place] interval, QRS interval, and QTc intervals were all normal. [place] was normal. There are no acute ST or T wave changes. Prior EKG tracings: available for review Prior: Unchanged (08/11/2020) Treatment and Re-Evaluation :: Patient was advised of her findings. Patient has a HEART score of 1. Patient was advised that this is low risk for acute cardiac event. Patient states she does not have a primary care physician. Patient was given a referral for the next primary care physician on the list. Patient was instructed to follow-up in 5 to 7 days for further evaluation. Patient understood and was agreeable with the plan. All questions were answered. Discharge Plan Triage Chief Complaint: Chest Pain ED Provider: Gustavo Multani Dx/Rx/DC Orders Clinical Impression: Chest pain, Morbid obesity with BMI of 50.0-59.9, adult Instructions: ED Chest Pain, Uncertain Cause Prescriptions: No Action venlafaxine 25 MG tablet 150 mg PO DAILY dicyclomine 10 mg capsule 10 mg PO TID PRN (Reason: abd pain) Qty: 14 0RF ondansetron 4 mg tablet,disintegrating 4 mg PO Q8H PRN (Reason: nausea and vomiting) Qty: 10 0RF hydrocodone-acetaminophen [hydrocodone-acetaminophen] 1 TABLET tablet 1 tab PO Q8H PRN PRN (Reason: Pain) 2 Days Qty: 6 0RF clindamycin HCl 150 mg capsule 450 mg PO TID 10 Days Qty: 90 0RF Primary Care Provider: Care Physician,No Primary Referrals: Eun Buckner MD [Med Staff - Interpretive Program Coordinator] - 5-7 Days Care Physician,No Primary [Primary Care Provider] - Disposition Disposition: Home, Self Care Discharge Date/Time: 06/03/22 15:33
--- NOTE | 2022-06-03 10:49 | EKG12_ITS ---
Test Reason : CP Blood Pressure : / mmHG Vent. Rate : 102 BPM Atrial Rate : 102 BPM P-R Int : 160 ms QRS Dur : 080 ms QT Int : 358 ms P-R-T Axes : 040 070 043 degrees QTc Int : 466 ms Sinus tachycardia Otherwise normal ECG Confirmed by CORINA ALVARES, DIONTE ([id number]), design editor TONEY RICHARDSON ([id number]) on 06/05/2022 9:10:36 AM Referred By: IVETTE Confirmed By:DIONTE ARRIAGA MD
[2022-06-03 11:17] VITALS: BP 152/97; PULSE 89; RESP 18; O2SAT 98
--- NOTE | 2022-06-03 11:20 | RAD_ITS ---
HISTORY: chest pain. TECHNIQUE: XR Chest 1 View. COMPARISON: 02/10/2018. FINDINGS: CARDIOMEDIASTINAL BORDERS: Cardiac silhouette within normal limits in size. Mediastinal contour unremarkable. LUNGS: Radiographically clear. PLEURA: No pleural effusion or pneumothorax seen. OSSEOUS STRUCTURES: Unremarkable. RAD/Chest 1 View (Portable) IMPRESSION: No acute cardiopulmonary process identified. Electronically Signed: Lizbeth Herrera MD at 11:57 EDT ,
[2022-06-03 11:40] LABS: Absolute Lymphocyte Count 1.86 X10^3/uL (0.83-4.51); Absolute Neutrophil Count 6.4 X10^3/uL (2.0-7.7); Basophil# 0.04 X10^3/uL; Basophil% 0.4 % (0-1); Eosinophil# 0.02 X10^3/uL; Eosinophils% 0.2 % (0-5); Hematocrit 43.4 % (37-47); Hemoglobin 13.8 g/dL (12.0-15.0); Lymphocyte # 1.86 X10^3/ul (0.83-4.51); Lymphocyte % 20.9 % (19-41); Mean Corp Hgb Conc 31.8 g/dL (32-36); Mean Corpuscular Hgb 29.1 pg (27.0-32.0); Mean Corpuscular Volume 91.4 fL (81-99); Mean Platelet Vol. 10.9 fl (6.2-12.0); Monocyte# 0.51 X10^3/uL; Monocyte% 5.7 % (0-10); NRBC Flagged by Analyzer 0 % (0-5); Neutrophil # 6.43 X10^3/uL (2.7-7.7); Neutrophil % 72.5 % (47-70); Platelet Count 353 K/mm3 (150-450); RBC Distribution Width CV 13.8 % (11.6-14.6); RBC Distribution Width SD 46.5 fl (35.1-43.9); Red Blood Count 4.75 M/mm3 (4.2-5.4); White Blood Count 8.9 K/mm3 (4.4-11.0)
[2022-06-03] MEDS: Aspirin 81 MG TAB.CHEW 324 MG PO (11:53)
[2022-06-03 12:00] LABS: Anion Gap 2 (5-15); BUN 9 mg/dL (7-18); BUN/Creat Ratio 10.4 RATIO (10-20); Calcium,Total 9.1 mg/dL (8.5-10.1); Chloride 105 mmol/L (98-107); Creatinine, Serum 0.87 mg/dL (0.55-1.02); EST Glomerular Filtration Rate 75 mL/min (>60); Est Glom Filt Rate - Afr Amer 91 mL/min (>60); Glucose 106 mg/dL (74-106); Potassium 4.3 mmol/L (3.5-5.1); Sodium Level 136 mmol/L (136-145); Troponin-I HS 3 pg/mL (3.0-54.0)
[2022-06-03 12:07] LABS: D-Dimer Quantitative (DVT/PE) 0.56 FEU/ug/m (0.27-0.49)
--- NOTE | 2022-06-03 12:10 | CT_ITS ---
HISTORY: Elevated D-dimer. TECHNIQUE: CT angiogram of the chest was performed after the intravenous administration of 100 mL Isovue-370. Post-processing of the angiographic images was performed with multiplanar reformation and 3D reconstruction. Individualized dose optimization techniques were used for this CT. 1254 images. COMPARISON: XR same day. FINDINGS: CENTRAL AIRWAYS: Patent. LUNGS: Mild hypoventilatory changes with air trapping. PLEURA: No pneumothorax or significant pleural effusion. HEART/PERICARDIUM: Heart within normal limits in size. No pericardial effusion. PULMONARY ARTERIES: No filling defect with limited evaluation of the more distal pulmonary artery branches due to suboptimal contrast bolus, motion artifact, and artifact from body habitus. AORTA/VESSELS: No thoracic aortic aneurysm or dissection flap. MEDIASTINUM/TIRNI: No pathologically enlarged lymph nodes. Subcentimeter thyroid nodules OSSEOUS STRUCTURES: Intact. UPPER ABDOMEN: Fatty infiltration of the liver. CT/CTA Chest W/WO Contrast IMPRESSION: No evidence of pulmonary embolism with limited evaluation of the more distal pulmonary artery branches due to artifact. Hepatic steatosis. Electronically Signed: Lizbeth Herrera MD at 13:25 EDT ,
[2022-06-03 13:00] VITALS: BP 143/78; PULSE 78; RESP 16; O2SAT 98
[2022-06-03 14:00] VITALS: BP 146/78; PULSE 78; RESP 16; O2SAT 100
[2022-06-03 15:12] VITALS: BP 138/64; PULSE 84; RESP 16; TEMP 36.6; O2SAT 100
== END 2022-06-03 15:33 | disposition home or self-care (01) ==
PROVIDERS: Emergency Provider Emergency Medicine; Visit Provider Emergency Medicine
DX: R07.9 Chest pain, unspecified (principal); E66.01 Morbid (severe) obesity due to excess calories; Z68.43 Body mass index [BMI] 50.0-59.9, adult; R11.0 Nausea; F17.210 Nicotine dependence, cigarettes, uncomplicated
CPT/HCPCS: 71045; 71275; 80048; 84484; 85025; 85379; 93005; 99285; Q9967

== ENCOUNTER 2022-12-06 18:06 | Emergency (ER) | payer MEDICAID, SELFPAY ==
[2022-12-06 18:08] VITALS: BP 170/99; PULSE 102; RESP 16; TEMP 36.9; O2SAT 99; BMI 55.6
--- NOTE | 2022-12-06 18:15 | RAD_ITS ---
INDICATION: injury EXAMINATION/TECHNIQUE: X-RAY - LEFT XR Ankle Min 3 Views 3 VIEWS COMPARISON: March 24, 2022. FINDINGS: This patient has a fracture of the distal fibula without significant displacement. This is above the level of the tibiotalar joint extending to the level of the joint space. Distal tibia grossly intact. There does appear to be some prominence of the lateral ankle mortise. No obvious posterior malleolar fracture. Visualized talus and calcaneus show no obvious abnormality. RAD/Ankle min 3 Views IMPRESSION: Distal fibular fracture. Widened medial ankle mortise. Electronically Signed: Devaughn Hatfield MD at 18:43 EDT ,
--- NOTE | 2022-12-06 18:15 | ED.RN ---
drug screen required by employer: [employer], for workman's comp claim. Per BAT schedule at triage desk on today's date it states to call in Kel at [phone]. This RN called that number, no answer and unable to leave a VM d/t mailbox being full.
--- NOTE | 2022-12-06 18:18 | ED.VIS.LOWEX ---
HPI History of Present Illness Chief Complaint: Lower Extremity Injury Detail of Chief Complaint: Injury to left ankle Informant: patient Narrative Narrative: Patient presents the emergency department with injury to her left ankle. 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 She denies other injuries. She was unable to bear weight. EMS was called. [facility] Medical History Anxiety Depression Home Medications hydrocodone-acetaminophen 5-325mg 5mg-325mg 1 tab PO Q4H PRN PRN Pain 2 days #15 TABLETS 12/06/22 [Rx Last Taken Unknown] Allergy/AdvReac Type Severity Reaction Status Date / Time Penicillins Allergy Mild Itching Verified 12/06/22 18:12 Surgical History History of cholecystectomy Hx of dilation and curettage Hx of tonsillectomy Hx of tubal ligation Social History Smoking Status: Current every day smoker tobacco type: cigarettes ROS ROS ED Review of Systems ROS Unobtainable: other Constitutional Constitutional ED: Reports lethargy; Denies chills, fever(s), sweats or weight loss Eyes Eyes: Denies blurry vision, change in vision or diplopia ENT ENT ED: Denies rhinorrhea or sore throat Cardiovascular Cardiovascular: Denies chest pain, orthopnea or racing heartbeat Respiratory/Chest Respiratory/Chest: Denies cough, dyspnea, dyspnea on exertion, orthopnea or sputum Gastrointestinal Gastrointestinal: Denies abdominal pain, diarrhea, nausea or vomiting Genitourinary Genitourinary ED: Denies dysuria, hematuria or urinary frequency Musculoskeletal Musculoskeletal: Reports other Details: Left ankle injury ; Denies arthralgias, back pain, myalgias or neck pain Integumentary Denies abscess, Abrasions or rash Neurologic Neurologic: Denies headache(s) or weakness Psychiatric Psychiatric: Denies anxiety, depression or suicidal thoughts Endocrine Endocrinology: Denies polydipsia, polyphagia or polyuria Hematologic/Lymphatic Hematologic/Lymphatic: Denies easy bleeding, easy bruising or lymphadenopathy Allergic/Immunologic Allergic/Immunologic ED: Denies mouth swelling, tongue swelling or urticaria EXAM Physical Exam Const Vital Signs: 12/06/22 18:08 Temperature 98.5 F Temperature Source Oral Pulse Rate 102 H Respiratory Rate 16 Blood Pressure 170/99 H Blood Pressure Mean 122 Pulse Ox 99 Oxygen Delivery Method Room Air Positive well nourished and well developed General Appearance ED: well developed and NAD HEENT Reports TM's clear and moist mucous membranes normocephalic and atraumatic; Negative for trauma or tenderness Tympanic Membrane ED: Yes TM's clear Eyes PERRL and EOMs intact bilaterally General Eye ED: Negative for pale conjunctiva or scleral icterus Neck no lymphadenopathy, supple and no JVD General: Negative for tenderness Chest Wall inspection of chest normal and palpation of chest normal Chest: Negative for tenderness Resp normal respiratory effort and clear to auscultation bilaterally Effort and Inspection: Negative for respiratory distress or pain with movement Auscultation: Negative for rhonchi, wheezes or diminished lung sounds Cardio regular rate, regular rhythm, S1 normal heart sound, S2 normal heart sound and no murmurs Peripheral Pulses: pulses 2+ throughout GI normal to inspection, nondistended, normoactive bowel sounds, soft to palpation, non-tender, non-distended and no masses Back/Spine no CVA tenderness and no thoracic nor lumbar tenderness Extremity Extremity Narrative: Let thank-patient has some mild soft tissue swelling over the lateral malleolus with tenderness to palpation. Achilles tendon is intact. She has no pain at the proximal fibular head. She has no pain at the base of the fifth metatarsal. She is neurovascular intact. General Extremety ED: Negative for edema General Extremity: Negative for edema Neuro oriented x3, CN's II-XII intact bilaterally, no sensory deficits noted and gait normal Sensorium / Orientation: awake, alert, oriented to person, oriented to place and oriented to time Motor Exam: strength 5/5 throughout and strength abnormal Psych mental status grossly normal Skin no rashes or lesions noted and no wounds MDM MDM MDM Narrative Medical decision making narrative: Patient with a mechanical fall and injury to the left ankle. X-rays obtained showed fracture of the distal fibula. Patient placed in a posterior splint. She will be given crutches. She will be given a prescription for [place]onan for pain. She will be given work restrictions. Radiography Diagnostic Testing: Clinical Impression(s) from Imaging Studies Ankle X-Ray 12/06/22 18:15 IMPRESSION: Distal fibular fracture. Widened medial ankle mortise. Electronically Signed: Devaughn Hatfield MD at 18:43 EDT , Three-view x-rays of the left ankle obtained interpreted by myself as fracture of the distal fibula. Radiology in agreement and they noted a widened medial ankle mortise. Discharge Plan Triage Chief Complaint: Lower Extremity Injury ED Provider: Etta Pardo Dx/Rx/DC Orders Clinical Impression: Fracture of left fibula Instructions: ED Ankle Fracture, Distal Fibula Prescriptions: New hydrocodone-acetaminophen [hydrocodone-acetaminophen] 5-325 mg tablet 1 tab PO Q4H PRN PRN (Reason: Pain) 2 Days Qty: 15 0RF Primary Care Provider: Care Physician,No Primary Referrals: Kishore Puentes DO [Med Staff - Active Staff] - 3-5 Days Simeon Gallo DPM [Med Staff - Active Staff] - 3-5 Days Care Physician,No Primary [Primary Care Provider] - Disposition Disposition: Home, Self Care
--- NOTE | 2022-12-06 18:40 | ED.RN ---
[facility] AT THIS TIME AND NOTIFIED OF DRUG SCREEN. STATES SHE WILL BE IN SOON.
== END 2022-12-06 20:04 | disposition home or self-care (01) ==
PROVIDERS: Emergency Provider Emergency Medicine; Visit Provider Emergency Medicine
DX: S82.832A Other fracture of upper and lower end of left fibula, initial encounter for closed fracture (principal); F17.210 Nicotine dependence, cigarettes, uncomplicated; X58.XXXA Exposure to other specified factors, initial encounter; Y92.89 Other specified places as the place of occurrence of the external cause; Z90.49 Acquired absence of other specified parts of digestive tract
CPT/HCPCS: 29515; 73610; 99285

== ENCOUNTER → 2022-12-22 | Outpatient (CLI) | payer OTHER, SELFPAY ==
--- NOTE | 2022-12-22 15:37 | CT_ITS ---
STUDY: CT LEFT ANKLE WITHOUT CONTRAST REASON FOR EXAM: Female, 42 years old. Left ankle fracture. RADIATION DOSAGE (If Supplied By Facility): CTDIvol = ( 15.35 ) mGy, DLP = ( 461.22 ) mGycm TECHNIQUE: Thin section transaxial imaging of the ankle was obtained, with sagittal and coronal reconstructed images. Individualized dose optimization techniques were used for this CT. COMPARISON: Left ankle radiographs dated 12/06/2022. FINDINGS: There is an oblique fracture of the distal fibula with up to 3 mm lateral displacement. There is a fracture of the anterolateral tip of the distal tibia, with 9 mm lateral displacement (axial series 3 images 55-60; coronal reformat series 602 images 28-31). Normal talar dome. Intact talus, calcaneus, navicular and cuboid tarsal bones. Normal subtalar, talonavicular and calcaneocuboid articulations. There are cystic degenerative changes in the navicular and cuneiforms. Normal tarsometatarsal articulations and visualized metatarsi. There is subcutaneous soft tissue edema along the medial and lateral aspects of the ankle. CT/Extremity Lower without Contra IMPRESSION: Oblique fracture of the distal fibula with up to 3 mm lateral displacement. Fracture of the anterolateral tip of the distal tibia, with 9 mm lateral displacement. Cystic degenerative changes in the navicular and cuneiforms. Subcutaneous soft tissue edema along the medial and lateral aspects of the ankle. Electronically Signed: Jono Vela MD at 16:11 EST ,
== END | disposition home or self-care (01) ==
LOC: CT 15:36
PROVIDERS: Referring Provider Podiatrist Foot & Ankle Surgery; Visit Provider Podiatrist Foot & Ankle Surgery
DX: S82.462A Displaced segmental fracture of shaft of left fibula, initial encounter for closed fracture (principal); X58.XXXA Exposure to other specified factors, initial encounter
CPT/HCPCS: 73700

== ENCOUNTER 2023-01-12 08:18 | Day surgery (SDC) | payer OTHER, SELFPAY ==
[2023-01-08 15:53] LABS: Magnesium 2.1 mg/dL (1.6-2.6)
[2023-01-08 15:54] LABS: Anion Gap 6 (5-15); BUN 12 mg/dL (7-18); BUN/Creat Ratio 13.6 RATIO (10-20); Calcium,Total 8.7 mg/dL (8.5-10.1); Chloride 105 mmol/L (98-107); Creatinine, Serum 0.88 mg/dL (0.55-1.02); EST Glomerular Filtration Rate 74 mL/min (>60); Est Glom Filt Rate - Afr Amer 89 mL/min (>60); Glucose 80 mg/dL (74-106); Potassium 4.1 mmol/L (3.5-5.1); Sodium Level 141 mmol/L (136-145)
[2023-01-12] VITALS (7 sets, daily range): BP systolic 123–135; BP diastolic 60–90; PULSE 91–103; RESP 16; TEMP 36.4–37.1; O2SAT 95–100; BMI 53.3
[2023-01-12] MEDS: Lactated Ringers 1,000 ML 15 ML IV (09:03)
--- NOTE | 2023-01-12 09:59 | OP.PCM_ITS ---
Problems Associated Problem List Diagnoses (1) Closed fracture of left fibula: Report of Operation Date of Procedure: 01/12/23 Pre-Operative Diagnosis: 1. Closed fibular fracture, left lower extremity Post-Operative Diagnosis: 1. Closed fibular fracture, left lower extremity Surgery/Procedure Performed:: 1. Open reduction internal fixation, fibular fracture, left lower extremity 2. Live fluoroscopy stress views, left lower extremity 3. Syndesmotic repair, left lower extremity 4. [place] of calcaneal bone graft aspirate, left lower extremity 5. PRP and BMAC injection, left lower extremity 6. Application of AO splint, left lower extremity Description of Surgical Findings:: 1. Evidence of oblique fracture appreciated to the distal fibula. 2. After stress radiographs there shows evidence of syndesmotic instability which was then fixed. Following stress views the syndesmotic instability was improved. 3. Anatomical reduction of the distal fibular fracture with orthopedic hardware. 4. Successful injection of BMAC, PRP, left lower extremity Surgeon: Bhavin Montalvo internal combustion engine inspector: Fili Vance Type of Anesthesia: Block,Regional and Spinal Anesthesiologist: Ulises Donahue Special Medications: Spinal anesthesia Specimen's removed: None Drains: None Estimated Blood Loss (mL): 25 mL Fluids Replaced: Per anesthesia Description of Procedure: Indications For Operation: Mrs. Brown is a 42-year-old female who was admitted to [facility] for open reduction internal fixation of the left lower extremity fibular fracture and syndesmotic repair secondary to a work-related injury. The patient is well-known to the office and once approved by [facility] the patient had a surgical consultation with all risk and benefits discussed with the patient in great detail prior to surgery. Due to displacement of the distal fibular fracture and instability of the syndesmosis, it had deemed necessary to take the patient to the operating room to perform the procedure above to help decrease her constant pain and get the patient back on her feet as fast as possible so that she may return to work. The nature of the problem, anticipated procedures, postop recovery/convalences and risk/complications include but not limited to infection, wound healing complications, hypertrophic scarring, numbness, tingling, chronic pain, CRPS, over and under correction, recurrence of deformity, DVT and or PE and the need for further surgery have been discussed in great detail with the patient. All questions have been answered to the patient's satisfaction. There are no guarantees given as to the outcome of the procedure. Description of Procedure: Under mild sedation, the patient was brought into the operating room and placed on the operating table in supine position. Once the patient was under spinal anesthesia accompanied with monitored anesthesia care, the left lower extremity was blocked per anesthesia with pop block and saphenous block. Please see anesthesia note for further detail. Next, a well-padded thigh tourniquet was applied to the left lower extremity. Next, the left lower extremity was prepped and draped in normal aseptic manner. Next, a timeout was then undertaken verifying the correct patient, extremity, visibility of preoperative markings, a vailability of the equipment. Next, attention was directed to the left lower extremity. Using a Jamshidi needle, the Jamshidi needle was inserted into the lateral calcaneus with mallet. Following insertion of the Jamshidi needle 60 cc of bone marrow harvest concentrated was removed and passed the back table to be spun down for bone marrow aspirate concentration, PRP and PPP aliquots. The needle site was flushed with copious months normal saline and closed with 2-0 nylon in simple interrupted suture technique. Next, the left lower extremity was exsanguinated with a sense and Esmarch, held to 60 degrees for 1 minute and the left thigh tourniquet was inflated to 300 mmHg. Next, attention was directed to the left ankle using a K wire and a marking pen, the ankle, syndesmosis, fibula as well as fibular fracture were all marked out prior to incision. Next, using a #15 blade a full-thickness incision down to bone was carried down over the length of the fibula. Continued blunt dissection was carried down to periosteum. Care was taken to retract and ligate all necessary bleeders when encountered. Using a hamilton elevator, the periosteum of the fibula was removed and the fracture was exposed. Using a curette, the hematoma was evacuated from the fracture site of the distal fibula. The fracture area was flushed with copious claudia of normal saline. There showed evidence of 2 oblique fracture lines in the distal fibula. Stress views of the syndesmosis was done at this time and showed evidence of syndesmotic compromise. Next, a 10 hole anatomical plate by [place] with the rep in the room and per the paintings restorer's recommendations was placed on the distal fibula. A combination of 3.5 mm locking and nonlocking screws were placed. After this, again, stress views of the syndesmosis was carried out in a dorsiflexion external rotation attitude of the left ankle and showed evidence of instability to the syndesmosis. Next, two synchfix syndesmotic fixation devices were placed from lateral to medial per the paintings restorer's recommendations, with care to place the medial button down to the level of the bone/periosteum, with the rep in the room. There showed evidence of stability across the syndesmosis after the synchfix was locked in tight. With the two gravity synchfix were in place, stress views were taken to show the integrity of the syndesmosis and showed evidence of no instability with anatomical reduction as well as with good tib- fib overlap in the AP and mortise view. The left lower extremity ankle was put through range of motion and there showed no evidence of catching, crepitus or decrease in range of motion. The left ankle showed to have within normal range of motion while on the operating table as well as clinically. The lateral and medial incisions were flushed with copious claudia of normal saline. The tourniquet was deflated on the left thigh after 66 minutes and showed excellent reperfusion to the left lower extremity. The medial incisions were closed with 2-0 nylon in simple interrupted suture technique. The lateral incision was closed in layers with 2-0 Vicryl in running locking as well as running suture technique. The skin was reapproximated and closed with naresh. Next, PRP was injected to the level of the fibular fracture as well as with 1 cc of PRP into the ankle. Next, BMAC was injected to the level of the fibular fracture. The left lower extremity was wiped clean and patted dry. All incisions were dressed with PPP spray, Betadine soaked Adaptic, dry sterile dressing and a double layer Nieves AO splint was applied at 90 degrees to the left lower extremity. The patient tolerated the procedure and anesthesia well and apparent satisfactory condition and was transported to the PACU for further monitoring prior to discharge home. Vital signs stable and vascular status intact to all digits bilateral. Post Operative Plan: Weightbearing: Nonweightbearing left lower extremity, full weightbearing right lower extremity with assistance of crutches. Antibiotics: 900 mg clindamycin through the IV DVT Prophylaxis: Aspirin 81 mg twice daily Stevens: None Dressing: Betadine soaked Adaptic, dry sterile dressing, 2 layer Nieves AO splint, left lower extremity X-Rays: Post-operative films taken on the operating room. Pain Medication: Percocet 5/325, Flexeril 10 mg 3 times daily Follow-up: Patient is to follow-up [address] Montalvo in private office. Grafts/Implants Used: 1. [place] ankle set. 2. Demarco synchfix (x2). 3. PRP, BMAC, PPP. Complications None Admit VTE Documentation VTE Present on Admission: Yes VTE Mechan Device Prophylaxis: SCD's VTE Pharm Prophylaxis ordered?: Yes
[2023-01-12] MEDS: Clindamycin 900 MG/50 ML BAG 75 MG IV (10:10)
--- NOTE | 2023-01-12 10:21 | RAD_ITS ---
STUDY: X-RAY - LEFT ANKLE REASON FOR EXAM: Female, 42 years old. LEFT FIBULAR FX TECHNIQUE: 3 view(s) of the ankle. COMPARISON: Comparison is made with prior study dated December 06, 2022. FINDINGS: Intraoperative imaging provided for open reduction and internal fixation of the distal fibular fracture. RAD/Ankle min 3 Views IMPRESSION: Intraoperative imaging provided for open reduction and internal fixation of the distal fibular fracture. There is good alignment. Electronically Signed: Rudy Sanders MD at 14:44 EST ,
[2023-01-12] MEDS: Heparin 10,000 UNITS/10 ML Vial 10000 UNITS (11:11)
[2023-01-12] MEDS: Calcium Chloride 1 GM/10 ML Syringe (11:11)
[2023-01-12] MEDS: Thrombin 5,000 IU Kit (PSA) 5,000 IU Vial 5000 IU TOPICAL (11:12)
[2023-01-12] MEDS: Oxycodone/Apap 5/325 Tablet PO (13:51)
== END 2023-01-12 15:25 | disposition home or self-care (01) ==
LOC: SDC 08:18 → AC 08:19
PROVIDERS: Anesthesiology; Referring Provider Podiatrist Foot & Ankle Surgery; Visit Provider Podiatrist Foot & Ankle Surgery
PROC: (CPT 27784; principal; 2023-01-12 09:40)
DX: S82.432A Displaced oblique fracture of shaft of left fibula, initial encounter for closed fracture (principal); W19.XXXA Unspecified fall, initial encounter; Y99.0 Civilian activity done for income or pay; M25.372 Other instability, left ankle; E78.00 Pure hypercholesterolemia, unspecified; G47.30 Sleep apnea, unspecified
CPT/HCPCS: 27784; 27829; 0263T; 0232T; 64445; 01462; 36415; 73610; 76000; 80048; 83735; C1713; J7120; J2405; J3475

== ENCOUNTER 2023-02-11 18:25 | Emergency (ER) | payer MEDICAID, SELFPAY ==
[2023-02-11 18:26] VITALS: BP 178/110; PULSE 105; RESP 18; TEMP 36.3; O2SAT 100
--- NOTE | 2023-02-11 19:44 | ED.RN ---
pt's daughter upset that an actual STEMI alert pt recieved care and felt her mother was not.Pt's daughter is not being pleasant.EKG started.
[2023-02-11 19:46] VITALS: BP 119/71; PULSE 89; RESP 16; O2SAT 95
--- NOTE | 2023-02-11 19:48 | RAD_ITS ---
STUDY: X-RAY CHEST REASON FOR EXAM: Female, 42 years old. chest pain TECHNIQUE: Single AP portable view of the chest. COMPARISON: 06/03/2022 FINDINGS: The lungs are clear and expanded. There is no demonstrated pleural abnormality. Normal size heart. Normal mediastinum and katy. Normal visualized pulmonary arteries. Normal visualized aortic arch and descending thoracic aorta. Normal visualized thoracic spine. Normal visualized ribs, clavicles, and shoulders. There is no demonstrated abnormality of the visualized soft tissue structures of the upper abdomen. RAD/Chest 1 View (Portable) IMPRESSION: Normal x-ray examination of the chest. Electronically Signed: Prabhakar Ho MD at 20:35 EST ,
--- NOTE | 2023-02-11 20:16 | ED.RN ---
CHARGE NURSE,RADHA YAÑEZ, MADE AWARE THAT THE PT'S DAUGHTER WAS NOT HAPPY THAT HER MOTHER WAS NOT GETTING CARE AND WAS UNPLEASANT WITH NURSE.
[2023-02-11 20:25] VITALS: PULSE 86; RESP 16; O2SAT 94
[2023-02-11 20:36] LABS: Absolute Lymphocyte Count 2.45 X10^3/uL (0.83-4.51); Absolute Neutrophil Count 6.6 X10^3/uL (2.0-7.7); Basophil# 0.04 X10^3/uL; Basophil% 0.4 % (0-1); Eosinophil# 0.06 X10^3/uL; Eosinophils% 0.6 % (0-5); Hematocrit 39.7 % (37-47); Hemoglobin 12.5 g/dL (12.0-15.0); Lymphocyte # 2.45 X10^3/ul (0.83-4.51); Lymphocyte % 25.1 % (19-41); Mean Corp Hgb Conc 31.5 g/dL (32-36); Mean Corpuscular Hgb 28.9 pg (27.0-32.0); Mean Corpuscular Volume 91.7 fL (81-99); Mean Platelet Vol. 10.6 fl (6.2-12.0); Monocyte# 0.61 X10^3/uL; Monocyte% 6.2 % (0-10); NRBC Flagged by Analyzer 0 % (0-5); Neutrophil # 6.58 X10^3/uL (2.7-7.7); Neutrophil % 67.3 % (47-70); Platelet Count 350 K/mm3 (150-450); RBC Distribution Width CV 13.7 % (11.6-14.6); RBC Distribution Width SD 46.2 fl (35.1-43.9); Red Blood Count 4.33 M/mm3 (4.2-5.4); White Blood Count 9.8 K/mm3 (4.4-11.0)
[2023-02-11 21:08] LABS: Anion Gap 3 (5-15); BUN 12 mg/dL (7-18); BUN/Creat Ratio 14.1 RATIO (10-20); Calcium,Total 9.5 mg/dL (8.5-10.1); Chloride 106 mmol/L (98-107); Creatinine, Serum 0.85 mg/dL (0.55-1.02); EST Glomerular Filtration Rate 77 mL/min (>60); Est Glom Filt Rate - Afr Amer 93 mL/min (>60); Glucose 117 mg/dL (74-106); Potassium 4.4 mmol/L (3.5-5.1); Sodium Level 139 mmol/L (136-145); Troponin-I HS (w/2H Reflex) 5 pg/mL (3.0-54.0)
--- NOTE | 2023-02-11 21:09 | ED.VIS.DYS ---
HPI History of Present Illness Chief Complaint: Shortness of Breath Narrative Narrative: Presenting with chest pain and shortness of breath. Patient states the onset of this was today about 8 hours ago. She describes the pain as sharp. Patient states she has anxiety and felt like this was what was happening and took 0.5 mg of Ativan and states it did not help her symptoms when usually would. Patient states she has intermittent sharp chest pain which is something she has when she has anxiety. She denies history of cardiac disease. No history of DVT/PE in the past but does have recent surgery in early January for fracture. By Dr. Montalvo. Patient has not had fever, chills, cough. No body aches, myalgias. Patient states he is otherwise been healthy. [facility] Medical History Anxiety CPAP (continuous positive airway pressure) dependence Depression Gallstones Heartburn High cholesterol History of blood transfusion PONV (postoperative nausea and vomiting) Restless legs Shortness of breath on exertion Sleep apnea Smoker Wears glasses Home Medications lamotrigine 200 mg tablet 200 mg PO DAILY 12/10/22 [History Last Taken 01/12/23] lorazepam 0.5 mg tablet 0.5 mg PO DAILY PRN anxiety 12/10/22 [History Last Taken 01/12/23 06:00] venlafaxine 150 mg capsule,extended release 24 hr 150 mg PO DAILY 12/10/22 [History Last Taken 01/12/23] ascorbic acid (vitamin C) 1,000 mg tablet (Vitamin C) 1 g PO DAILY 90 days #90 tabs 01/12/23 [Rx Last Taken Unknown] aspirin 81 mg tablet,delayed release 81 mg PO BID 30 days #60 tabs 01/12/23 [Rx Last Taken Unknown] calcium carbonate 500 mg-vitamin D3 15 mcg (600 unit) tablet (Os-Chai 500 + D3) 1 tab PO DAILY 90 days #90 tabs 01/12/23 [Rx Last Taken Unknown] cyclobenzaprine 10 mg tablet 10 mg PO TID 7 days #21 tabs 01/12/23 [Rx Last Taken Unknown] docusate sodium 100 mg capsule (Colace) 100 mg PO DAILY 10 days #10 caps 01/12/23 [Rx Last Taken Unknown] nicotine 21 mg/24 hr daily transdermal patch 1 patch transdermal DAILY #28 ea 01/12/23 [Rx Last Taken Unknown] oxycodone-acetaminophen 5 mg-325 mg tablet (Percocet) 1 tab PO Q6H PRN pain 7 days #28 tabs 01/12/23 [Rx Last Taken Unknown] Allergy/AdvReac Type Severity Reaction Status Date / Time Penicillins Allergy Mild Itching Verified 02/11/23 18:26 Family History Mother Surgical complication passed after gastric bypass Thyroid disorder Aunt Diabetes Uncle Diabetes Other Depression Surgical History H/O wrist surgery History of cholecystectomy Hx of dilation and curettage Hx of tonsillectomy Hx of tubal ligation Social History household members: significant other and children number of children: 2 current occupational status: employed current occupation: [employer] Smoking Status: Current every day smoker tobacco type: cigarettes and e-cigarettes Electronic Cigarette Use: not used alcohol intake: never substance use type: does not use do you feel safe at home: Yes ROS ROS ED Constitutional Constitutional ED: Denies chills, fever(s) or sweats Eyes Eyes: Denies blurry vision or change in vision ENT ENT ED: Denies ear pain or sore throat Cardiovascular Cardiovascular: Reports chest pain and palpitations; Denies racing heartbeat Respiratory/Chest Respiratory/Chest: Reports dyspnea; Denies cough or sputum Gastrointestinal Gastrointestinal: Denies abdominal pain, constipation, diarrhea, nausea or vomiting Genitourinary Genitourinary ED: Denies dysuria, hematuria or urinary frequency Musculoskeletal Musculoskeletal: Denies arthralgias, myalgias or neck pain Integumentary Denies abscess, Abrasions or rash Neurologic Neurologic: Denies headache(s), paresthesias or weakness Psychiatric Psychiatric: Reports anxiety; Denies depression, suicidal ideation or suicidal thoughts Endocrine Endocrinology: Denies polydipsia or polyuria EXAM Physical Exam Const Vital Signs: 02/11/23 18:26 02/11/23 19:46 02/11/23 19:46 Temperature 97.4 F L Temperature Source Temporal Pulse Rate 105 H 89 Respiratory Rate 18 16 Respiratory Effort Respiratory Pattern Blood Pressure 178/110 H 119/71 Blood Pressure Mean 132 87 Pulse Ox 100 95 95 Oxygen Delivery Method Room Air Room Air Room Air 02/11/23 19:46 02/11/23 20:25 02/11/23 22:00 Temperature Temperature Source Pulse Rate 86 86 Respiratory Rate 16 13 Respiratory Effort Short of Breath Respiratory Pattern Tachypnea Blood Pressure 140/77 H Blood Pressure Mean 98 Pulse Ox 94 93 Oxygen Delivery Method Room Air Room Air Room Air Positive well nourished HEENT Reports moist mucous membranes atraumatic and trauma Eyes PERRL MDM MDM MDM Narrative Medical decision making narrative: Patient presenting with chest pain, anxiety, shortness of breath. Patient also has recent history of left foot surgery/tibial surgery. Differential includes ACS, PE, pneumonia, dehydration, anemia, electrolyte normalities, anxiety. CBC was obtained to assess white blood cell count, hemoglobin, platelets. BMP to assess renal function, electrolytes, glucose. High-sensitivity troponin EKG to assess for ischemia/dysrhythmia. Chest x-ray to rule out pneumonia. D-dimer will be obtained to rule out PE. CT shows no leukocytosis. Hemoglobin hematocrit are stable. Platelets are normal. Renal function electrolytes within normal limits. High-sensitivity opponent is 5. EKG on my interpretation shows normal sinus rhythm with ventricular to 106 bpm outside of ischemic change or ectopy. Chest x-ray my interpretation shows no acute process. High-sensitivity troponin is 5. Given that the patient has pain all day I do not believe she is a delta troponin. Since her D-dimer was elevated she had a CTA of the chest which was negative. Patient counseled on findings. I feel she stable for discharge. Return precautions discussed. Impression: 1. Anxiety 2. Chest pain Lab Data Labs: Laboratory Results - last 24 hr 02/11/23 20:25 WBC 9.8 RBC 4.33 Hgb 12.5 Hct 39.7 MCV 91.7 MCH 28.9 MCHC 31.5 L RDW Std Deviation 46.2 H RDW Coeff of Tom 13.7 Plt Count 350 MPV 10.6 Immature Gran % (Auto) 0.400 Neut % (Auto) 67.3 Lymph % (Auto) 25.1 Hayes % (Auto) 6.2 Eos % (Auto) 0.6 Baso % (Auto) 0.4 Absolute Neuts (auto) 6.6 Absolute Lymphs (auto) 2.45 Nucleated RBC % 0 D-Dimer Quant (PE/DVT) 0.89 H* Sodium 139 Potassium 4.4 Chloride 106 Carbon Dioxide 30.0 Anion Gap 3 L BUN 12 Creatinine 0.85 Est GFR (MDRD) Af Amer 93 Est GFR (MDRD) Non-Af 77 BUN/Creatinine Ratio 14.1 Glucose 117 H Calcium 9.5 Troponin I High Sens 5 Radiography Diagnostic Testing: Clinical Impression(s) from Imaging Studies Chest X-Ray 02/11/23 19:48 IMPRESSION: Normal x-ray examination of the chest. Electronically Signed: Prabhakar Ho MD at 20:35 EST Reading Location ID and State: [id number] / [facility] , Service support , Chest CTA 02/11/23 21:48 IMPRESSION: Normal CTA chest examination, without a demonstrated pulmonary embolism or arterial dissection. Electronically Signed: Prabhakar Ho MD at 22:54 EST Reading Location ID and State: [facility] / [facility] , Service support , Discharge Plan Triage Chief Complaint: Shortness of Breath ED Provider: Jaswinder Ramos Dx/Rx/DC Orders Instructions: ED Chest Pain, Uncertain Cause Prescriptions: No Action lamotrigine 200 mg tablet 200 mg PO DAILY lorazepam 0.5 mg tablet 0.5 mg PO DAILY PRN (Reason: anxiety) venlafaxine 150 mg capsule,extended release 24hr 150 mg PO DAILY oxycodone-acetaminophen [Percocet] 5-325 mg tablet 1 tab PO Q6H PRN (Reason: pain) 7 Days Qty: 28 0RF cyclobenzaprine 10 mg tablet 10 mg PO TID 7 Days Qty: 21 0RF docusate sodium [Colace] 100 mg capsule 100 mg PO DAILY 10 Days Qty: 10 0RF aspirin 81 mg tablet,delayed release (DR/EC) 81 mg PO BID 30 Days Qty: 60 0RF ascorbic acid (vitamin C) [Vitamin C] 1,000 mg tablet 1 g PO DAILY 90 Days Qty: 90 0RF calcium carbonate-vitamin D3 [Os-Chai 500 + D3] 500 mg-15 mcg (600 unit) tablet 1 tab PO DAILY 90 Days Qty: 90 0RF nicotine 21 mg/24 hr patch 24 hour 1 patch transdermal DAILY Qty: 28 1RF Primary Care Provider: Care Physician,No Primary Referrals: Care Physician,No Primary [Primary Care Provider] - Disposition Disposition: Home, Self Care
[2023-02-11 21:47] LABS: D-Dimer Quantitative (DVT/PE) 0.89 FEU/ug/m (0.27-0.49)
--- NOTE | 2023-02-11 21:48 | CT_ITS ---
STUDY: CTA CHEST REASON FOR EXAM: Female, 42 years old. chest pain RADIATION DOSAGE (If Supplied By Facility): CTDIvol = ( 31.59 ) mGy, DLP = ( 747.63 ) mGycm TECHNIQUE: The examination was performed with the intravenous administration of IV 100mL Isovue-370. Post-processing of the angiographic images was performed, with multiplanar reformation and 3D reconstruction. Individualized dose optimization techniques were used for this CT. COMPARISON: 06/03/2022, chest x-ray earlier today FINDINGS: Normal enhancement of the main pulmonary artery and right and left pulmonary arteries. Normal enhancement of the bilateral peripheral pulmonary arteries. There is no demonstrated pulmonary embolism. Normal thoracic aorta and visualized great vessels. There is no demonstrated aortic dissection. Normal heart and pericardium. Normal mediastinum. Normal hilar regions. Normal visualized trachea and bronchi. The lungs are well expanded. Normal pulmonary parenchyma. Normal pleura. Normal chest wall structures. Normal osseous structures. Normal visualized upper abdomen. CT/CTA Chest W/WO Contrast IMPRESSION: Normal CTA chest examination, without a demonstrated pulmonary embolism or arterial dissection. Electronically Signed: Prabhakar Ho MD at 22:54 EST ,
[2023-02-11 22:00] VITALS: BP 140/77; PULSE 86; RESP 13; O2SAT 93
--- OUTSIDE RECORDS SUMMARY | 2023-02-11 22:14 | XMS RPT_ITS | CCD ---
Author Name Unknown Address [address] [place] [address] Organization [facility] Care Team Providers Care Master Sheet Clerk Name Role Phone Ricky Mullen PA-C Primary Care Provider [phone] Allergies Allergy Classification Reported Allergen(s) Allergy Type Date of Onset Reaction(s) Facility (1 source) Penicillins Propensity to adverse reactions 06-04-2009 [facility] Work Phone: Medications Completed/Discontinued Medications Medication Drug Class(es) Dates Sig (Normalized) Sig (Original) CPAP (1 source) Start: 01-27-2019 CPAP Indicatio ns: PIPE (obstructive sleep apnea) Initiate Auto PAP @ 5-20 cm of water with humidification. Mask (per patient preference) optional chin strap (if indicated) , filters, tubing, humidifier and lifetime supplies. 1 Device 0 01/27/2019 Active Problems Active Problems Problem Classification Problem Date Documented Da te Episodic/Chronic Anxiety disorders (1 source) Panic attack; Translations: [Panic disorder [episodic paroxysmal anxiety]] Onset: 12-13-2018 12-13-2018 Chronic Mood disorders (1 source) Major depression single episode, in partial remission; Translations: [Major depressive disorder, single episode, in partial remission] Onset: 12-13-2018 12-13-2018 Chronic Residual codes; unclassified (1 source) Obstructive sleep apnea syndrome; Translations: [Obstructive sleep apnea (adult) (pediatric)] Onset: 01-27-2019 01-27-2019 Chronic Past or Other Problems Problem Classification Problem Date Documented Da te Episodic/Chronic Cancer of cervix (1 source) Atypical squamous cells of undetermined significance on cervical Papanicolaou smear; Translations: [Atypical squamous cells of undetermined significance on cytologic smear of cervix (ASC-US)] Onset: 09-20-2020 09-20-2020 Episodic Results Test Name Value Interpretation Reference Range Facil ity Encounters Encounter Date Encounter Type Care Provider Facility Start: 02-21-2022 Telephone encounter M Srikanth Sebas HOOPER Work Phone: Family Medicine Jose J Procedures Date Procedure Procedure Detail Performing Clinician Start: 09-14-2020 Mammography ANALILIA Mullen PA-C Work Phone: Plan of Treatment Date Care Activity Detail Author Start: 09-14-2025 HPV TESTING HPV TESTING [facility] Start: 09-14-2025 PAP TESTING PAP TESTING [facility] Start: 10-10-2021 Influenza vaccination INFLUENZA (#1) [facility] Start: 09-14-2021 Mammography MAMMOGRAM [facility] Start: 05-16-2020 COVID-19 VACCINE (3 - Booster for Moderna series) COVID-19 VACCINE (3 - Booster for Moderna series) [facility] Start: 1997 Urine microalbumin profile DTAP,TDAP,TD (1 - Tdap) [facility] Start: 1996 HEPATITIS C SCREENING HEPATITIS C SC REENING [facility] Start: 1996 HIV SCREENING HIV SCREENING [facility] Start: 1984 PNEUMOCOCCAL (1 - PCV) PNEUMOCOCCAL (1 - PCV) [facility] Start: 1978 HEPATITIS B (1 of 3 - 3-dose series) HEPATITIS B (1 of 3 - 3-dose series) [facility] Payers Date Payer Category Payer Medicaid [employer] [id number] 2005-Present [phone] [address] [place] [address] Medicaid [id number] Social History Date Type Detail Facility Start: 03-12-2018 Tobacco smoking stat us NHIS Smokes tobacco daily [facility] History of tobacco use Cigarette Smoker C 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 Note 02-21-2022 Telephone Encounter - Trish Le LPN - 02/21/2022 10:11 AM EST Note Date & Type Note Facility 02-21-2022 Miscellaneous Notes Formattin g of this note might be different from the original. Patient has been identified by name and date of : Yes, Provider Tamela Date 02/21/22 Type of form: [facility] CPAP supplies Form received via: Fax When form is completed, fax form to fax number provided. Form has been forwarded to: back to [facility] patient needs appointment to have form completed. No visit here since 2019. Trish Le LPN documented in this encounter [facility] Clinical Note 10-16-2021 Note Date & Type Note Facility 10-16-2021 Note Patient Outreach (IN [facility]) MICHELLE SESAY ([id number]) 1980 F Date Time Provider Department 10/16/21 Ricky MULLEN During your visit today, we recorded the following information about you: Allergies As of Date: 10/16/2021 Noted Allergy Reaction PENICILLINS 06/04/2009 Date Reviewed: 09/14/2020 Reviewed by: Nereyda Gonzalez APRN.GOLD MARKER - Fully Assessed Visit Diagnosis:Encounter for screening mammogram for breast cancer [Z12.31] Order(s):[facility] SCREENING [[id number]] Order #: [id number] FUTURE Prescriptions as of 10/21/2021 - CPAP Initiate Auto PAP @ 5-20 cm of water with humidification. Mask (per patient preference) optional chin strap (if indicated) , filters, tubing, humidifier and lifetime supplies. - lamoTRIgine (LAMICTAL) 200 mg tablet Take 200 mg by mouth once daily. - venlafaxine ER (EFFEXOR XR) 150 mg 24 hr capsule Take 150 mg by mouth once daily. - LORazepam (ATIVAN) 0.5 mg tab Problem List As Of Date 10/16/2021 Noted Resolved Cholelithiasis [K80.20] 06/04/2009 12/13/2018 Chronic cholecystitis [K81.1] 06/04/2009 12/13/2018 Panic attacks [F41.0] 12/13/2018 Major depressive disorder with single episode, *12/13/2018 PIPE (obstructive sleep apnea) [G47.33] 01/27/2019 ASCUS with positive high risk HPV cervical [R87*09/20/2020 Encounter Status:Closed by SERG, PRODUSER on 10/21/21 [facility] History of Past illness Narrative 06-04-2009 Note Date & Type Note Facility documented as of this encounter (statuses as of 02/24/2022) [facility] Summary Purpose Family History No Family History Records Found Advance Directives No Advanced Directives Records Found Additional Source Comments Source Comments (unrecognize d section and content) In the event this informatio n is protected by the Federal Confidentiality of Alcohol and Drug Abuse Patient Records regulations: The Federal rules restrict any use of the information to criminally investigate or prosecute any alcohol or drug abuse patient.[facility] Reason for Visit (unrecogniz ed section and content) Care Teams (unrecognized sec tion and content) INFORMATION SOURCE (unrecogn ized section and content) FOR RECORDS PERTAINING TO PATIENTS WHO ARE OR HAVE BEEN ENROLLED IN A CHEMICAL DEPENDENCY/SUBSTANCEABUSE PROGRAM, SOME INFORMATION MAY BE OMITTED. This clinical summary was aggregated from multiple sources. Caution should be exercised in using it in the provision of clinical care. This summary normalizes information from multiple sources, and as a consequence, information in this document may materially change the coding, format and clinical context of patient data. In addition, data may be omitted in some cases. CLINICAL DECISIONS SHOULD BE BASED ON THE PRIMARY CLINICAL RECORDS. [facility]. provides no warranty or guarantee of the accuracy or completeness of information in this document.
[2023-02-11 22:34] LABS: Reflex Troponin-HS? (from REC) Y
[2023-02-11 23:00] VITALS: BP 117/72; PULSE 85; RESP 16; O2SAT 93
[2023-02-11 23:10] LABS: Troponin-I HS 6 pg/mL (3.0-54.0)
== END 2023-02-11 23:41 | disposition home or self-care (01) ==
PROVIDERS: Emergency Provider Student in an Organized Health Care Education/Training Program; Visit Provider Student in an Organized Health Care Education/Training Program
DX: F41.9 Anxiety disorder, unspecified (principal); R07.9 Chest pain, unspecified; R06.02 Shortness of breath; E78.00 Pure hypercholesterolemia, unspecified; F17.210 Nicotine dependence, cigarettes, uncomplicated; F17.290 Nicotine dependence, other tobacco product, uncomplicated; Z79.82 Long term (current) use of aspirin; Z79.899 Other long term (current) drug therapy; Z98.890 Other specified postprocedural states
CPT/HCPCS: 71045; 71275; 80048; 84484; 85025; 85379; 93005; 99284; Q9967; A4216

== ENCOUNTER → 2023-04-13 | Outpatient (CLI) | payer MEDICAID, SELFPAY ==
--- OUTSIDE RECORDS SUMMARY | 2023-04-13 06:22 | XMS RPT_ITS | CCD ---
Author Name Unknown Address [address] [place] [address] Organization [facility] Care Team Providers Care Marzipan Molder Name Role Phone Ricky Mullen PA-C Primary Care Provider LC LUNA DO Attending Unavailable PHYSICIAN, NONE Primary Care Unavailable Allergies Allergy Classification Reported Allergen(s) Allergy Type Date of Onset Reaction(s) Facility (1 source) Penicillins Propensity to adverse reactions 06-04-2009 [facility] Work Phone: Medications Completed/Discontinued Medications Medication Drug [...] Date Encounter Type Care Provider Facility Start: 02-17-2023 End: 02-17-2023 Emergency department patient visit LC LUNA DO Facility:B Start: 02-21-2022 Telephone encounter Ricky Srikanth Sebas HOOPER Work Phone: Family Medicine Jose J Procedures Date Procedure Procedure Detail Performing Clinician Start: 09-14-2020 Mammography ANALILIA Mullen PA-C Work Phone: Plan of Treatment Date Care Activity Detail Author Start: 09-14-2025 HPV TESTING HPV TESTING [facility] Start: 09-14-2025 PAP TESTING PAP TESTING [facility] Start: 10-10-2021 Influenza vaccination INFLUENZA (#1) [facility] Start: 09-14-2021 Mammography MAMMOGRAM [facility] Start: 05-16-2020 COVID-19 VACCINE (3 - Booster for Moderna series) COVID-19 VACCINE (3 - Booster for Moderna series) [facility] Start: 1997 Urine microalbumin profile DTAP,TDAP,TD (1 - Tdap) [facility] Start: 1996 HEPATITIS C SCREENING HEPATITIS C SC TOM [facility] Start: 1996 HIV SCREENING HIV SCREENING [facility] Start: 1984 PNEUMOCOCCAL (1 - PCV) PNEUMOCOCCAL (1 - PCV) [facility] Start: 1978 HEPATITIS B (1 of 3 - 3-dose series) HEPATITIS B (1 of 3 - 3-dose series) [facility] Payers Date Payer Category Payer Unknown [id number] 2005 Medicaid [employer] [id number] 2005-Present [phone] [address] [place] [address] Medicaid [id number] 1978 Unknown [id number] Social History Date Type Detail Facility Start: 03-12-2018 Tobacco smoking stat us NHIS Smokes tobacco daily [facility] History of tobacco use Cigarette Smoker [facility] Start: 03-12-2018 Cigarettes smoked cu rrent (pack per day) - Reported 1 [facility] Start: 03-12-2018 Tobacco use and exposure Smoke less tobacco non-user [facility] Start: 09-14-2020 Alcohol intake Current non-dr bar back of alcohol (finding) [facility] Start: 1980 Sex Assigned At Not on file [facility] Note 02-21-2022 Telephone Encounter - Trish Le LPN - 02/21/2022 10:11 AM EST Note Date & Type Note Facility 02-21-2022 Miscellaneous Notes Formattin g of this note might be different from the original. Patient has been identified by name and date of : Yes, Provider [place] Date 02/21/22 Type of form: [facility] CPAP supplies Form received via: Fax When form is completed, fax form to fax number provided. Form has been forwarded to: back to [facility] patient needs appointment to have form completed. No visit here since 2019. 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 Assessed Visit Diagnosis:Encounter for screening mammogram for breast cancer [Z12.31] Order(s):[facility] SCREENING [[id number]] Order #: [id number] FUTURE Prescriptions as of 10/21/2021 - CPAP [...] Encounter Status:Closed by SERG, PRODUSER on 10/21/21 [facility] History of Past illness Narrative 06-04-2009 Note Date & Type Note Facility documented as of this encounter (statuses as of 02/24/2022) [facility] Summary Purpose Family History No Family History Records FoundNo Family History Records Found Advance Directives No Advanced Directives Records FoundNo Advanced Directives Records Found Additional Source Comments Source Comments (unrecognize d section and content) In the event this informatio n is protected by the Federal Confidentiality of Alcohol and Drug Abuse Patient Records regulations: The Federal rules restrict any use of the information to criminally investigate or prosecute any alcohol or drug abuse patient.[facility] Reason for Visit (unrecogniz ed section and content) Care Teams (unrecognized sec tion and content) INFORMATION SOURCE (unrecogn ized section and content) DATE CREATED AUTHOR AUTHOR'S BRIEN SAAVEDRA 02/24/2023 [facility]ethro ([place]) FOR RECORDS PERTAINING TO PATIENTS WHO ARE [...] BE BASED ON THE PRIMARY CLINICAL RECORDS. [employer] [facility]. provides no warranty or guarantee of the accuracy or completeness of information in this document.
--- NOTE | 2023-04-13 10:16 | STRESSREP ---
Stress Test Report Date: 04/13/2023 Procedure: Pharmacologic stress nuclear imaging study Indications: Chest pain Consent: Per the patient Procedure: The patient underwent pharmacologic (Regadenoson 0.4mg ) evaluation with a peak heart rate of 107 beats per minute (60%predicted maximal heart rate) and a peak blood pressure of 140/79 mmHg. The baseline ECG demonstrated sinus rhythm. The peak pharmacologic ECG demonstrated no ischemic changes. There were no cardiac dysrhythmias pretest, during pharmacologic infusion, or recovery. There was no complaint of chest discomfort during pharmacologic infusion or recovery. The patient was injected with 14.7 millicuries of technetium 99m Cardiolite and subsequently rest SPECT Cardiolite nuclear imaging was obtained in the horizontal long, vertical long, and short axis views. The patient underwent pharmacologic (Regadenoson) evaluation. The patient was injected with 44.9 millicuries of technetium 99m Cardiolite and subsequently stress SPECT Cardiolite nuclear imaging was obtained in the horizontal long, vertical long, and short axis views. A gated Cardiolite study at peak stress was obtained. The examination was stopped secondary to completion of protocol. Rest and stress SPECT Cardiolite nuclear imaging status post realignment, normalization, and attenuation correction demonstrate no fixed or reversible perfusion defects. There is end systolic thickening and brightening. The gated Cardiolite study demonstrates myocardial thickening and inward wall motion. The reported LVEF is 68%. Impression: 1. Pharmacologic (Regadenoson) evaluation 2. Peak pharmacologic ECG with no ischemic changes. 3. There were no cardiac dysrhythmias pretest, during pharmacologic infusion, or recovery. 5. Rest and stress SPECT Cardiolite nuclear imaging demonstrate relative uniform tracer uptake and myocardial perfusion appearing within normal limits. 6. The gated Cardiolite study reports an LVEF of 68%. This note was generated with [employer] software. It may contain incorrect words, spelling, and punctuation that were not noted in checking the note before signing.
== END | disposition home or self-care (01) ==
LOC: CVS 06:20
PROVIDERS: PCP Internal Medicine; Referring Provider Internal Medicine; Visit Provider Internal Medicine
DX: R07.9 Chest pain, unspecified (principal)
CPT/HCPCS: 78452; 93017; A9500; A4216; J2785

== ENCOUNTER 2023-06-05 14:30 | Outpatient (RCR) | payer OTHER, MEDICAID, SELFPAY ==
--- NOTE | 2023-02-25 17:02 | HP.PTEVAL_ITS ---
Patient's Visit Information Visit Information Visit Information: MICHELLE SESAY is a 42 year old F referred to Physical Therapy by Dr. Bhavin Montalvo DPM with a diagnosis of L fibular fx and ORIF with syndesmosis stablization. Date of Evaluation: 02/25/23 Physical Therapist: Gino Gasca DPT Visit Plan Frequency: 3x /Week Duration: 6 Weeks Plan: 1) Improve ankle ROM in all directions, active ROM passive stretching (avoid end range, to pt tolerance) 2) Improve weightshifting in WB with CAM boot on 3) Improve hip/quad strengthening OKC 4) Address tightness/pain in plantar fascia 5) Practice using FWW with PWB and heavy UE support (unless status is updated by physician) Pt should have her own bariatric FWW soon Pt is fairly anxious about walking and placing weight through LLE Subjective Subjective: Pt is a 42 year old female who underwent ORIF of L fibula 01/12/23. Pt presents wearing CAM boot on LLE and is using w/c full-time for mobility in home and community. Pt reports no pain today but has stiffness in L ankle joint. 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 Pt was injured 12/06/22 at work and is a Worker's Comp case. Pt has been reliant on family to help her transfer and she has been unable to navigate stairs since her injury to get up to the second floor of her home. Pt has a shower chair but no walker at home, she asked about getting a walker since she has been unable to use the crutches given to her post-op. Pain Left Ankle: Pain Intensity (Out of 10): 0 Pain Intensity Range: 0 and 6 Objective Objective: PALPATION: TTP lateral malleolus, incision healing well, some redness d/t friction in cam boot (ant lateral ankle) ROM: 0 deg DF, 50 PF, 0 deg ev, 25 deg inv MMT: DNT R ankle, some weakness severino hips, weak L hip flex GAIT: using w/c for mobility but attempted weightshifting act with cam boot on, introduced PWB with FWW OBSERVATIONS: pt is anxious about pain with movement and placing weight on her abkle after being NWB for extended period of time Transfers well without issues. Did better with FWW. She did have some difficulty with retro stepping and would need further instruction on gait with FWW. Balance/Special Test Scores Lower Extremity Functional Score: 17 Goals Goal 1:: STG: Pt will demonstrate equal weightshifting severino while wearing CAM boot with appropriate UE support Goal Time Frame: 2 Weeks Goal 2:: STG: Pt will demonstrate proper sequencing with FWW with no cues to correct and no LOB Goal Time Frame: 2-4 Weeks Goal 3:: Pt will demonstrate symmetrical global LE strength severino Goal Time Frame: 4-6 Weeks Goal 4:: LTG: Pt will achieve at least 20 deg of active ankle DF needed for normalized LE propulsion during walking Goal Time Frame: 4-6 Weeks Goal 5:: LTG: Pt will be able to stand for 1+ hour with <2/10 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 Pt would benefit from PT services to practice amb with AD as WB orders are progressed, improve hip/LLE strength, and regain L ankle ROM and stability. Rehabilitation Potential: Good Anticipated Interventions Patient/Client Instruction: Educate patient on: Condition, Plan of Care and Risk Factors For the Purpose of:: To decrease pain, To decrease swelling/inflammation, To increase ROM, To improve nutrient delivery to tissue, To increase tolerance to activity/condition/position, To improve ability of physical actions for home/community/work/leisure, To improve gait and locomotor functions, To improve health of tissue, To decrease soft tissue restriction, To increase flexibility/ROM, To improve endurance, To improve balance, To improve safety with gait, To assume or resume ADL's, To reduce risk of recurrence, To improve safety, To improve self management and To improve ability to perform tasks related to life management Therapeutic Exercise to Include: Strength training, Balance training, Flexibilty training, Gait and locomotor training and Active ROM For the Purpose of:: To decrease pain, To decrease swelling/inflammation, To increase ROM, To improve nutrient delivery to tissue, To improve ability to perform ADL's, To increase tolerance to activity/condition/position, To improve performance and independence with ADL's, To decrease level of supervision to perform tasks, To improve ability of physical actions for home/community/work/leisure, To improve gait and locomotor functions, To decrease soft tissue restriction, To increase flexibility/ROM, To improve balance, To improve safety with gait, To assume or resume ADL's, To improve ability to perform tasks related to life management and To improve tolerance to ADL's Manual Therapy Techniques to Include: Scar massage, Mobilization, Passive ROM and Soft tissue mobilization For the Purpose of:: To decrease pain, To decrease swelling/inflammation, To increase ROM, To improve health of tissue, To decrease soft tissue restriction and To increase flexibility/ROM Assistive Devices: Wheeled walker For the Purpose of:: To increase tolerance to activity/condition/position, To improve performance and independence with ADL's, To improve ability of physical actions for home/community/work/leisure and To improve gait and locomotor functions Cryotherapy (ice pack, ice massage): Yes Thermo therapy (hot pack): Yes Text: Thank you for the opportunity to evaluate your patient. For Medicare and Medicare HMO plans, please review the plan of care and approve it. It will need to be FAXED BACK to us at [phone] for Medicare purposes. For Medicare only, by signing this I certify the plan of care. Please let me know if there are questions or concerns regarding this plan of care. Physician Signature: Date:
--- NOTE | 2023-04-29 12:31 | HP.PTREVAL ---
Re-Evaluation Intro: Dr. Bhavin Montalvo, DPM, It has been my pleasure to treat MICHELLE SESAY over the last 18 visits for L fibular fx and ORIF with syndesmosis stablization. Please see the progress note below for an update on the physical therapy plan of care! Subjective Subjective: Pt. reports overall doing better, but not where she wants to be. Pt. reports being HEP compliant. Pt. reports being 65% better overall. She is still having issues with progressive walking and popping in her L ankle. Objective Objective/Function: MMT: L ankle: PF 38.9#, DF 21.3#, EVR 13.4#, INV 15.9# ROM: DF 13deg, PF 43deg, EVR 12deg, INV 27deg. pain at rest 0-1/10, gait: 2/10 initially, but does have a popping feel that increases her pain to 4/10. Walking upto ~ 10 minutes her pain increases. Pain all at distal lateral leg, ankle. Occasionally it feels like her leg wants to give out on her. gait: Pt. has increased pain during L stance phase resulting in decreased R step length and decreased L stance phase. Antalgic during L stance phase. SLS: 12sec in LLE. Pt. unable to complete single leg heel raise on L foot. Able to complete B heel raises, but does have popping on the lateral ankle with every attempt STAIRS: Pt. is able to ascend with 1 HR, relatively okay. Descending: she unable to effectively complete with reciprocal pattern secondary to pain. She can do it, but has early L heel off and heavy use of BHR. 6 MWT: 846 feet Plan Plan Plan: I would recommend more therapy to increase DF ROM to all for better tolerance with walking and descend stairs, increased tolerance with walking progressing towards more lifting techniques. 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 Recommending increased therapy. Balance/Gait/Functional tests Balance/Special Test Scores Lower Extremity Functional Score: 17 6 Minute Walk Test: 846 feet progressive increasing pain and marked increased popping. (below normal age values) Goals Goals Goal 1:: STG: Pt will demonstrate equal weightshifting severino while wearing CAM boot with appropriate UE support (MET) New goal: 04/28: Pt. to have normal gait pattern without use of AD with 0-2/10 pain in L ankle. 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 Goal Time Frame: 4-6 Weeks Goal Progress: Progressing Goal 6:: LTG: Pt will be able to ascend/descend stairs with <2/10 pain Goal Time Frame: 4-6 Weeks Goal Progress: Progressing Anticipated Interventions Anticipated Interventions Patient/Client Instruction: Educate patient on: Condition, Plan of Care and Risk Factors For the Purpose of:: To decrease pain, To decrease swelling/inflammation, To increase ROM, To improve nutrient delivery to tissue, To increase tolerance to activity/condition/position, To improve ability of physical actions for home/community/work/leisure, To improve gait and locomotor functions, To improve health of tissue, To decrease soft tissue restriction, To increase flexibility/ROM, To improve endurance, To improve balance, To improve safety with gait, To assume or resume ADL's, To reduce risk of recurrence, To improve safety, To improve self management and To improve ability to perform tasks related to life management Therapeutic Exercise to Include: Strength training, Balance training, Flexibilty training, Gait and locomotor training and Active ROM For the Purpose of:: To decrease pain, To decrease swelling/inflammation, To increase ROM, To improve nutrient delivery to tissue, To improve ability to perform ADL's, To increase tolerance to activity/condition/position, To improve performance and independence with ADL's, To decrease level of supervision to perform tasks, To improve ability of physical actions for home/community/work/leisure, To improve gait and locomotor functions, To decrease soft tissue restriction, To increase flexibility/ROM, To improve balance, To improve safety with gait, To assume or resume ADL's, To improve ability to perform tasks related to life management and To improve tolerance to ADL's Manual Therapy Techniques to Include: Scar massage, Mobilization, Passive ROM and Soft tissue mobilization For the Purpose of:: To decrease pain, To decrease swelling/inflammation, To increase ROM, To improve health of tissue, To decrease soft tissue restriction and To increase flexibility/ROM Assistive Devices: Wheeled walker For the Purpose of:: To increase tolerance to activity/condition/position, To improve performance and independence with ADL's, To improve ability of physical actions for home/community/work/leisure and To improve gait and locomotor functions Cryotherapy (ice pack, ice massage): Yes Thermo therapy (hot pack): Yes Re-Evaluation Ending Re-evaluation ending: Please do not hesitate to contact me at [phone] by phone or if you have questions or concerns regarding this new plan of care! Sincerely, Gino Gasca DPT
== END 2023-06-05 19:00 | disposition home or self-care (01) ==
LOC: PT 14:30
PROVIDERS: Visit Provider Podiatrist Foot & Ankle Surgery
DX: S82.402D Unspecified fracture of shaft of left fibula, subsequent encounter for closed fracture with routine healing (principal)
CPT/HCPCS: 97110; 97116; 97140; 97162; 97164; 97530

== ENCOUNTER 2024-01-07 18:45 | Emergency (ER) | payer MEDICAID, SELFPAY ==
[2024-01-07 18:45] VITALS: BP 147/70; PULSE 57; RESP 19; TEMP 36; O2SAT 97
[2024-01-07 18:47] VITALS: BMI 54.0
[2024-01-07 19:30] VITALS: BP 139/90; PULSE 98; RESP 14; O2SAT 100
--- NOTE | 2024-01-07 19:30 | RAD_ITS ---
EXAM: XR CHEST, 1 VIEW CLINICAL INDICATION: chest pain TECHNIQUE: Frontal view of the chest. COMPARISON: 02/11/2023. FINDINGS: LUNGS AND PLEURAL SPACES: Unremarkable. No consolidation or edema. No pneumothorax. No effusion. HEART: Unremarkable. Cardiac silhouette not enlarged. MEDIASTINUM: Central airways and mediastinal contour are unremarkable. BONES/JOINTS: Unremarkable. No acute fracture. SOFT TISSUES: Unremarkable. RAD/Chest 1 View (Portable) IMPRESSION: Normal chest radiograph and unchanged. Electronically Signed: Wayne Coronado MD at 20:30 EST ,
[2024-01-07] MEDS: Ondansetron 4 MG/2 ML Vial IV (19:40)
[2024-01-07 19:48] LABS: Absolute Lymphocyte Count 3.96 X10^3/uL (0.83-4.51); Absolute Neutrophil Count 5.2 X10^3/uL (2.0-7.7); Basophil# 0.08 X10^3/uL; Basophil% 0.8 % (0-1); Eosinophil# 0.07 X10^3/uL; Eosinophils% 0.7 % (0-5); Hematocrit 40.4 % (37-47); Lymphocyte # 3.96 X10^3/ul (0.83-4.51); Lymphocyte % 39.7 % (19-41); Mean Corp Hgb Conc 32.2 g/dL (32-36); Mean Corpuscular Hgb 28.8 pg (27.0-32.0); Mean Corpuscular Volume 89.4 fL (81-99); Mean Platelet Vol. 11.5 fl (6.2-12.0); NRBC Flagged by Analyzer 0 % (0-5); Neutrophil # 5.24 X10^3/uL (2.7-7.7); Neutrophil % 52.6 % (47-70); Platelet Count 418 K/mm3 (150-450); RBC Distribution Width CV 14.5 % (11.6-14.6); RBC Distribution Width SD 47.1 fl (35.1-43.9); Red Blood Count 4.52 M/mm3 (4.2-5.4)
--- NOTE | 2024-01-07 19:54 | ED.VIS.CHEST ---
HPI History of Present Illness Chief Complaint: Chest Pain Narrative Narrative: Chief complaint and HPI: 43-year-old female with past medical history of anxiety and depression presents for evaluation of palpitations. Onset of symptoms was earlier this morning. Patient states while in the kitchen making food she developed palpitations. She states she thought it was her anxiety so she took a nap. When she woke up she continued to have palpitation with 1 episode of emesis. She states she is mildly nauseous. Patient states her palpitations have not improved which is why she came for evaluation. She does endorse some chest pressure with mild shortness of breath. She denies any fever, chills, URI symptoms, abdominal pain. Denies any recent travel or surgery. Denies any bilateral lower extremity swelling or pain. Patient states that she has had chest pain in the past with unremarkable workup. On chart review she had a stress test earlier this year without any ischemic changes. Her EF was 60%. Review of systems: See HPI Medications: As listed on the chart Allergies: As listed on the chart PFSH: Per chart Vital signs: As listed on the chart. Reviewed. Physical exam: Gen: A&O x3, anxious and tearful Head: Normocephalic, atraumatic Eyes: No sclera icterus, conjunctiva clear ENT: Moist mucous membranes Neck: Trachea midline, No JVD CV: Tachycardic, regular rhythm, no murmurs, no peripheral edema Resp: Lungs CTA BL, no w/r/c GI: Abd soft, non-distended, non-tender, no r/r/g Musc: Full ROM, no deformity Skin: Warm, dry Neuro: Alert, oriented, grossly intact, sensation intact Psych: Cooperative, appropriate mood and affect [facility] Medical History Wears glasses High cholesterol Restless legs Heartburn Shortness of breath on exertion CPAP (continuous positive airway pressure) dependence Sleep apnea Smoker PONV (postoperative nausea and vomiting) Gallstones History of blood transfusion Anxiety Depression Home Medications ?Medication ?Instructions ?Recorded ?Last Taken ?Type lamotrigine 200 mg tablet 200 mg PO DAILY 12/10/22 01/12/23 History lorazepam 0.5 mg tablet 0.5 mg PO DAILY PRN anxiety 12/10/22 01/12/23 06:00 History venlafaxine 150 mg 150 mg PO DAILY 12/10/22 01/12/23 History capsule,extended release 24 hr buspirone 10 mg tablet mg PO 02/26/23 Unknown History tirzepatide 2.5 mg/0.5 mL 2.5 mg (0.5 mL) subcut QWEEK #2 mL 10/02/23 Unknown Rx subcutaneous pen injector Allergy/AdvReac Type Severity Reaction Status Date / Time Penicillins Allergy Mild Itching Verified 10/02/23 11:30 Family History Mother Surgical complication passed after gastric bypass Thyroid disorder Aunt Diabetes Uncle Diabetes Other Depression Surgical History History of surgery on lower extremity H/O wrist surgery Hx of dilation and curettage Hx of tubal ligation Hx of tonsillectomy History of cholecystectomy Social History household members: significant other and children number of children: 2 current occupational status: employed current occupation: [employer] Smoking Status: Current every day smoker tobacco type: cigarettes and e-cigarettes Electronic Cigarette Use: not used alcohol intake: never substance use type: does not use do you feel safe at home: Yes EXAM Physical Exam Const Vital Signs: 01/07/24 18:45 01/07/24 19:25 01/07/24 19:30 Temperature 96.8 F L Temperature Source Temporal Pulse Rate 57 L 98 Respiratory Rate 19 H 14 Blood Pressure 147/70 H 139/90 H Blood Pressure Mean 95 103 Pulse Ox 97 100 Oxygen Delivery Method Room Air Room Air 01/07/24 20:00 01/07/24 21:00 01/07/24 22:00 Temperature Temperature Source Pulse Rate 87 83 81 Respiratory Rate 17 14 21 H Blood Pressure 139/87 H 127/80 H 116/83 H Blood Pressure Mean 99 93 94 Pulse Ox 98 97 Oxygen Delivery Method 01/07/24 22:00 01/07/24 22:00 01/07/24 22:56 Temperature 97 F L 98 F Temperature Source Pulse Rate 76 76 83 Respiratory Rate 16 16 22 H Blood Pressure 116/64 116/64 125/75 H Blood Pressure Mean 81 81 91 Pulse Ox 97 97 97 Oxygen Delivery Method MDM MDM MDM Narrative Medical decision making narrative: 43-year-old female presents for evaluation of palpitations. Associated symptom is chest discomfort and mild shortness of breath. Differential diagnosis includes but is not limited to arrhythmia, electrolyte abnormality, thyroid dysfunction, ACS, PE. On evaluation patient is tachycardic but otherwise vital stable. She is very anxious in the room. NS bolus, Zofran ordered. Cardiac workup ordered. EKGs and chest x-ray reviewed see below. CBC without leukocytosis or anemia. BMP shows mild renal insufficiency with creatinine of 1.18. Her last known creatinine is from February 2023 and was normal at that time. Patient states she has been eating and drinking well. This may be her new baseline. Magnesium level unremarkable. TSH unremarkable. Troponin unremarkable x 2. D-dimer elevated at 0.58 this is higher than age-adjusted therefore cannot fully rule out PE with her palpitations, tachycardic, mild shortness of breath. CTA chest ordered. CTA chest negative for PE and without acute process. On reevaluation, patient states her symptoms have resolved. They resolved once her tachycardia resolved. Patient has remained in normal sinus rhythm without any further sinus arrhythmia. At this point in time unclear etiology, may have been secondary to dehydration versus anxiety. I did try to place Holter monitor on the patient however none are available at this time. 48-hour Holter monitor was placed for outpatient. Patient is to call tomorrow. She confirmed understanding. Strict return precautions were explained. Follow-up with PCP and cardiology. Patient confirmed understanding of plan EKG: Interpreted by me/EM physician: EKG shows sinus arrhythmia with a heart rate of 101. No ST elevation. Patient is no longer tachycardic, will repeat EKG. Normal sinus rhythm without any acute ischemic changes. Heart rate 86. Diagnostic: Interpreted by me/EM physician: Chest x-ray without pneumonia, effusion, cardiomegaly, pneumothorax Impression: 1. Palpitations 2. Renal insufficiency Lab Data Labs: Laboratory Results - last 24 hr 01/07/24 01/07/24 19:30 21:45 WBC 10.0 RBC 4.52 Hgb 13.0 Hct 40.4 MCV 89.4 MCH 28.8 MCHC 32.2 RDW Std Deviation 47.1 H RDW Coeff of Tom 14.5 Plt Count 418 MPV 11.5 Immature Gran % (Auto) 0.200 Neut % (Auto) 52.6 Lymph % (Auto) 39.7 [place] % (Auto) 6.0 Eos % (Auto) 0.7 Baso % (Auto) 0.8 Absolute Neuts (auto) 5.2 Absolute Lymphs (auto) 3.96 Nucleated RBC % 0 D-Dimer Quant (PE/DVT) 0.58 H* Sodium 140 Potassium 4.1 Chloride 108 H Carbon Dioxide 26.0 Anion Gap 7 BUN 16 Creatinine 1.18 H Estim Creat Clear Calc 85.45 Est GFR (MDRD) Af Amer 64 Est GFR (MDRD) Non-Af 53 L BUN/Creatinine Ratio 13.6 Glucose 127 H Calcium 8.9 Magnesium 2.0 Troponin I High Sens 4 3 TSH 2.140 Radiography Diagnostic Testing: Clinical Impression(s) from Imaging Studies Chest X-Ray 01/07/24 19:30 IMPRESSION: Normal chest radiograph and unchanged. Electronically Signed: Wayne Coronado MD at 20:30 EST Reading Location ID and State: [facility] / [place] , Service support , Chest CTA 01/07/24 20:09 IMPRESSION: Negative CTA chest and unchanged. Electronically Signed: Wyane Coronado MD at 20:51 EST , Discharge Plan Triage Chief Complaint: Chest Pain ED Provider: Ta Brown Dx/Rx/DC Orders Clinical Impression: Heart palpitations Instructions: ED Palpitations, Chest Pain O Prescriptions: No Action lamotrigine 200 mg tablet 200 mg PO DAILY lorazepam 0.5 mg tablet 0.5 mg PO DAILY PRN (Reason: anxiety) venlafaxine 150 mg capsule,extended release 24hr 150 mg PO DAILY buspirone 10 mg tablet PO tirzepatide 2.5 mg/0.5 mL pen injector 2.5 mg subcut QWEEK Qty: 2 1RF Rx Instructions: for 4 weeks Primary Care Provider: Aide Millan Referrals: Aide Millan MD [Primary Care Provider] - 3-5 Days SaudKhoa leggett MD [Med Staff - Active Staff] - 3-5 Days Activity Restrictions/Additional Instructions: Call the hospital tomorrow to schedule your Holter monitor. Order was placed. Return back to the ED if symptoms recur or change. Follow-up with your primary care physician and cardiology. Print Language: Telugu Disposition Disposition: Home, Self Care Discharge Date/Time: 01/07/24 22:59
[2024-01-07 20:00] VITALS: BP 139/87; PULSE 87; RESP 17; O2SAT 98
[2024-01-07 20:06] LABS: Anion Gap 7 (5-15); BUN 16 mg/dL (7-18); BUN/Creat Ratio 13.6 RATIO (10-20); Calcium,Total 8.9 mg/dL (8.5-10.1); Chloride 108 mmol/L (98-107); Creatinine, Serum 1.18 mg/dL (0.55-1.02); EST Glomerular Filtration Rate 53 mL/min (>60); Est Glom Filt Rate - Afr Amer 64 mL/min (>60); Estimated Creatinine Clearance 85.45 ml/min; Glucose 127 mg/dL (74-106); Potassium 4.1 mmol/L (3.5-5.1); Sodium Level 140 mmol/L (136-145); Troponin-I HS (w/2H Reflex) 4 pg/mL (3.0-54.0)
[2024-01-07 20:09] LABS: D-Dimer Quantitative (DVT/PE) 0.58 FEU/ug/m (0.27-0.49)
--- NOTE | 2024-01-07 20:09 | CT_ITS ---
EXAM: CT ANGIOGRAPHY CHEST WITHOUT AND WITH INTRAVENOUS CONTRAST CLINICAL INDICATION: Elevated dimer, shortness of breath, chest pain TECHNIQUE: Helically acquired angiography images were obtained of the chest without and with intravenous contrast. This CT exam was performed using one or more of the following dose reduction techniques: automated exposure control, adjustment of the mA and/or kV according to patient size, and/or use of iterative reconstruction technique. MIP reconstructed images were created and reviewed. CONTRAST: IV 100mL [id number]-370 RADIATION DOSE: CTDIvol = 24.54 mGy, DLP = 559.25 mGy-cm COMPARISON: CTA chest 02/11/2023. FINDINGS: PULMONARY ARTERIES: Unremarkable. Normal in caliber. No evidence of pulmonary embolism. AORTA: Unremarkable. Normal in caliber. No evidence of dissection. GREAT VESSELS OF AORTIC ARCH: Unremarkable. Normal in caliber. No evidence of dissection. LUNGS AND PLEURAL SPACES: Unremarkable. No mass. No consolidation or edema. No pleural effusion or thickening. No pneumothorax. HEART: Unremarkable. Heart size is normal. No pericardial effusion. No significant coronary artery calcifications. MEDIASTINUM: Unremarkable. No mediastinal or hilar adenopathy. Esophagus is unremarkable. No hiatal hernia. THYROID: Unremarkable. No thyroid lesions. BONES/JOINTS: Unremarkable. No suspicious lytic or blastic abnormality. CT/CTA Chest W/WO Contrast IMPRESSION: Negative CTA chest and unchanged. Electronically Signed: Wayne Coronado MD at 20:51 EST Reading Location ID and State: [address] [place] [address] , Service support ,
[2024-01-07] MEDS: 0.9% Normal Saline (1000mL) 1,000 ML 999 ML IV (20:40)
[2024-01-07 21:00] VITALS: BP 127/80; PULSE 83; RESP 14
[2024-01-07 21:36] LABS: Reflex Troponin-HS? (from REC) Y
[2024-01-07 22:00] VITALS: BP 116/64; BP 116/83; PULSE 76; PULSE 81; RESP 16; RESP 21; TEMP 36.1; O2SAT 97
[2024-01-07 22:09] LABS: Troponin-I HS 3 pg/mL (3.0-54.0)
[2024-01-07 22:56] VITALS: BP 125/75; PULSE 83; RESP 22; TEMP 36.6; O2SAT 97
== END 2024-01-07 22:59 | disposition home or self-care (01) ==
PROVIDERS: Emergency Medicine; Emergency Provider Surgery; PCP Internal Medicine; Visit Provider Surgery
DX: R00.2 Palpitations (principal); N28.9 Disorder of kidney and ureter, unspecified; R07.89 Other chest pain; R06.02 Shortness of breath; E78.00 Pure hypercholesterolemia, unspecified; F32.A Depression, unspecified; F41.9 Anxiety disorder, unspecified; F17.210 Nicotine dependence, cigarettes, uncomplicated; F17.290 Nicotine dependence, other tobacco product, uncomplicated; Z79.899 Other long term (current) drug therapy
CPT/HCPCS: 71045; 71275; 80048; 83735; 84443; 84484; 85025; 85379; 93005; 96361; 96374; 99284; J7030; Q9967; A4216; J2405

== ENCOUNTER → 2024-01-07 | Outpatient (CLI) | payer MEDICAID, SELFPAY | END | disposition home or self-care (01) | PROVIDERS: PCP Internal Medicine; Referring Provider Surgery; Visit Provider Surgery | DX: Z00.00 Encounter for general adult medical examination without abnormal findings (principal) ==

== ENCOUNTER → 2024-01-21 | Outpatient (CLI) | payer MEDICAID, SELFPAY | END | disposition home or self-care (01) | LOC: PSN 10:19 | PROVIDERS: PCP Internal Medicine; Referring Provider Surgery; Visit Provider Surgery | DX: R00.2 Palpitations (principal) | CPT/HCPCS: 93225; 93226 ==

== ENCOUNTER 2025-02-06 20:00 | Emergency (ER) | payer SELFPAY ==
[2025-02-06 20:00] VITALS: BP 171/113; PULSE 105; RESP 18; TEMP 36.2; O2SAT 94
--- NOTE | 2025-02-06 20:15 | EKG12_ITS ---
Test Reason : CP Blood Pressure : */* mmHG Vent. Rate : 100 BPM Atrial Rate : 100 BPM P-R Int : 176 ms QRS Dur : 80 ms QT Int : 378 ms P-R-T Axes : 55 75 46 degrees QTcB Int : 487 ms Sinus tachycardia Possible Left Atrial Enlargement QTcB >= 480 msec Abnormal ECG Confirmed by Medardo Wills ([id number]), news videotape editor TONEY RICHARDSON ([id number]) on 02/10/2025 6:41:00 AM Referred By: TA Confirmed By: Medardo Wills
--- NOTE | 2025-02-06 20:27 | RAD_ITS ---
PROCEDURE: CHEST 1 VIEW (PORTABLE) 02/06/2025 REASON FOR EXAM: CHEST PAIN TECHNIQUE: Frontal view of the chest. COMPARISON: 01/07/2024 FINDINGS: Lungs/Pleura: Clear. Heart/Mediastinum: Normal in size. Bones/Soft tissues: Unremarkable. RAD/Chest 1 View (Portable) IMPRESSION: No acute cardiopulmonary disease. Reading Location: [id number]
[2025-02-06 20:35] LABS: Hematocrit 42.7 % (37-47); Hemoglobin 13.9 g/dL (12.0-15.0); Immature Granulocytes Count 0.020 X10^3/uL (0.0-0.0); Mean Corp Hgb Conc 32.6 g/dL (32-36); Mean Corpuscular Volume 87.0 fL (81-99); Mean Platelet Vol. 10.7 fl (6.2-12.0); NRBC Flagged by Analyzer 0 % (0-5); Platelet Count 390 K/mm3 (150-450); RBC Distribution Width CV 15.7 % (11.6-14.6); RBC Distribution Width SD 49.8 fl (35.1-43.9); Red Blood Count 4.91 M/mm3 (4.2-5.4); White Blood Count 10.1 K/mm3 (4.4-11.0)
[2025-02-06 21:12] LABS: Troponin T High Sensitivity < 6 ng/L (<=14)
--- OUTSIDE RECORDS SUMMARY | 2025-02-06 21:27 | XMS RPT_ITS | CCD ---
Author Organization [facility] Care Team Providers Care Business Management Intern Name Role Phone Ricky Mullen PA-C Primary Care Provider [phone] Care Physician, No Primary Primary Care Provider Unavailable Care Physician, No Primary Referring Provider Un available MELISSA Ruiz Attending Provider [phone] MELISSA Rose Attending Provider Care Physician, No Primary Primary Care Provider Unavailable Care Physician, No Primary Referring Provider Un available MELISSA Ruiz Attending Provider MELISSA Rose Attending Provider Dr. Aide Millan Attending Provider Care Physician, No Primary Primary Care Provider Unavailable Care Physician, No Primary Referring Provider Un available Care Physician, No Primary Primary Care Provider Unavailable Care Physician, No Primary Referring Provider Un available MELISSA Rose Attending Provider LC LUNA DO Attending Unavailable PHYSICIAN, NONE Primary Care Unavailable Care Physician, No Primary Primary Care Provider Unavailable Care Physician, No Primary Referring Provider Un available Dr. Aide Millan Attending Provider [phone] Dr. Aide Millan Primary Care Provider Dr. Aide Millan Referring Provider Dr. Aide Millan Other Provider Dr. Khoa Villavicencio Attending Provider Unavailable Primary Care Provider Unavailabl e Ta Brown Referring Unavailabl e Aide Millan Primary Care Unavailable Ta Brown Attending Unavailabl e Ta Brown Referring Unavailabl e Nii Hammer Attending Unavailable Prescott, Aide Primary Care Unavailable Yana, Aide Primary Care Unavailable Prescott, Aide Consulting Unavailable Prescott, Aide Referring Unavailable Khoa Villavicencio Attending Unavailable Yana, Aide Referring Unavailable Prescott, Aide Primary Care Unavailable Antoinette Penaloza Attending Unavailable Bhavin Montalvo Attending Unavailable Care Physician, No Primary Primary Care Unava ilable Ta Brown Attending Unavailabl e Yana, Aide Primary Care Unavailable Yana, Aide Primary Care Unavailable Antoinette Penaloza Attending Unavailable Prescott, Aied Primary Care Unavailable Yana, Aide Attending Unavailable Prescott, Aide Referring Unavailable Fabiola-Ta Alfaro Referring Unavailabl e Prescott, Aide Primary Care Unavailable Ta Brown Attending Unavailabl e PHYSICIAN, NONE Primary Care Physician Unavailab le PHYSICIAN, NONE Primary Care Unavailable TERRA QUISPE DC Attending Unavailable Allergies Allergy Classification Reported Allergen(s) Allergy Type Date of Onset Reaction(s) Facility (3 sources) Penicillins; Translations: [PENICILLINS] Propensity to adverse reactions 0 [facility] Work Phone: (8 sources) Penicillins Allergy to substance 3 Itching [facility] (1 source) Penicillins Drug allergy (disorder) 4 [facility] Repository (1 source) Penicillin; Translations: [penicillin] Drug Allergy [facility] Medications Current Medications Medication Drug Class(es) Dates Sig (Normalized) Sig (Original) acetaminophen 325 mg / HYDROcodone bitartrate 5 mg oral tablet (10 sources) Opioid Agonist Start: 12-06-2022 take 1 tablet by mouth every four hours as needed Hydrocodone-Aceta minophen Active 1 TABLET PO EVERY 4 HOURS NEEDED 15 2 December 06, 2022 Start: 04-14-2021 End: 09-11-2022 take 1 tablet by mouth every eight hours as needed Hydrocodone-Acetaminophen Discontinued 1 TABLET PO EVERY 8 HOURS NEEDED 6 2 April 14, 2021 September 11, 2022 10:41am busPIRone hydrochloride 10 m g oral tablet (1 source) Start: 02-26-2023 Buspirone Acti ve MG PO February 26, 2023 12:00am CPAP (2 sources) Start: 01-27-2019 CPAP Indicatio ns: PIPE (obstructive sleep apnea) Initiate Auto PAP @ 5-20 cm of water with humidification. Mask (per patient preference) optional chin strap (if indicated) , filters, tubing, humidifier and lifetime supplies. 1 Device 01/27/2019 Active Start: 01-27-2019 CPAP Indicatio ns: PIPE (obstructive sleep apnea) Initiate Auto PAP @ 5-20 cm of water with humidification. Mask (per patient preference) optional chin strap (if indicated) , filters, tubing, humidifier and lifetime supplies. 1 Device 0 01/27/2019 Active Comment on above: Initiate Auto PAP @ 5-20 cm of water with humidification. Mask (per patient preference) optional chin strap (if indicated) , filters, tubing, humidifier and lifetime supplies. fluticasone propionate 0.05 mg/actuat metered dose nasal spray (1 source) Corticosteroid Start: 5 take 2 spray(s) by mouth once daily fluticasone (FLONASE) 50 mcg/actuation nasal spray Indications: Post-nasal drainage Use 2 Sprays in each nostril once daily. Rinse mouth after use. 1 Each 02/13/2024 Active lamoTRIgine 200 mg oral tablet (6 sources) Mood Stabilizer, Anti-epileptic Agent Start: 3 take 200 mg by mouth once daily Lamotrigine Active 200 MG PO DAILY December 09, 2022 11:00pm Comment on above: Take 200 mg by mouth once daily. LORazepam 0.5 mg oral tablet (6 sources) Benzodiazepine Start: 9 take 0.5 mg by mouth once daily Lorazepam Active 0.5 MG PO DAILY December 09, 2022 11:00pm 24 hr venlafaxine 150 mg extended release oral capsule (14 sources) Serotonin and Norepinephrine Reuptake Inhibitor Start: 9 take 150 mg by mouth once daily Venlafaxine Active 150 MG PO DAILY December 09, 2022 11:00pm Start: 07-18-2013 End: 09-11-2022 take 150 mg by mouth once daily Venlafaxine Discontinued 150 MG PO DAILY July 17, 2013 11:00pm September 11, 2022 10:41am Comment on above: Take 150 mg by mouth once daily. Completed/Discontinued Medications Medication Drug Class(es) Dates Sig (Normalized) Sig (Original) acetaminophen 325 mg / oxyCODONE hydrochloride 5 mg oral tablet (3 sources) Opioid Agonist Start: 01-12-2023 End: 02-26-2023 take 1 tablet by mouth every six hours Oxycodone-Acetamino phen (Percocet) 5-325 mg tablet Discontinued 1 TABLET PO EVERY 6 HOURS 28 January 12, 2023 February 26, 2023 2:49pm ascorbic acid 1000 mg oral tablet (3 sources) Vitamin C Start: 01-12-2023 End: 02-26-2023 take 1 g by mouth once daily Ascorbic Acid (Vitamin C) (Vitamin C) 1,000 mg tablet Discontinued 1 GM PO DAILY 90 January 12, 2023 12:00am February 26, 2023 2:48pm aspirin 81 mg delayed release oral tablet (3 sources) Platelet Aggregation Inhibitor, Nonsteroidal Anti-inflammatory Drug Start: 01-12-2023 End: 02-26-2023 take 81 mg by mouth twice daily Aspirin Discontinued 81 MG PO TWICE A DAY 60 January 12, 2023 12:00am February 26, 2023 2:48pm calcium carbonate 1250 mg / cholecalciferol 600 unt oral tablet (3 sources) Vitamin D Start: 01-12-2023 End: 02-26-2023 take 1 tablet by mouth once daily Calcium Carbonate-Vitamin D3 (Os-Chai 500 + D3) 500 mg-15 mcg (600 unit) tablet Discontinued 1 TABLET PO DAILY 90 January 12, 2023 12:00am February 26, 2023 2:48pm cefuroxime 500 mg oral tablet (8 sources) Cephalosporin Antibacterial Start: 04-24-2020 End: 05-01-2020 take 500 mg by mouth twice daily Cefuroxime Axetil Discontinued 500 MG PO TWICE A DAY 14 April 23, 2020 11:00pm April 30, 2020 11:03pm clindamycin 150 mg oral capsule (8 sources) Lincosamide Antibacterial Start: 03-20-2022 End: 09-11-2022 take 450 mg by mouth three times daily Clindamycin Hcl Discontinued 450 MG PO THREE TIMES A DAY 90 March 20, 2022 12:00am September 11, 2022 10:41am cyclobenzaprine hydrochloride 10 mg oral tablet (3 sources) Muscle Relaxant Start: 01-12-2023 End: 02-26-2023 take 10 mg by mouth three times daily Cyclobenzaprine Discontinued 10 MG PO THREE TIMES A DAY 29 08January 12, 2023 12:00am February 26, 2023 2:49pm dicyclomine hydrochloride 10 mg oral capsule (8 sources) Anticholinergic Start: 08-12-2020 End: 09-11-2022 take 10 mg by mouth three times daily Dicyclomine Discontinued 10 MG PO THREE TIMES A DAY August 12, 2020 12:16am September 11, 2022 10:41am docusate sodium 100 mg oral capsule (3 sources) Start: 01-12-2023 End: 02-26-2023 take 1 capsule by mouth once daily Docusate Sodium (Colace) 100 mg capsule Discontinued 100 MG PO DAILY 11 18January 12, 2023 12:00am February 26, 2023 2:49pm metroNIDAZOLE 500 mg oral tablet (8 sources) Nitroimidazole Antimicrobial Start: 04-24-2020 End: 05-01-2020 take 500 mg by mouth three times daily Metronidazole Discontinued 500 MG PO THREE TIMES A DAY 29 08April 23, 2020 11:00pm April 30, 2020 11:03pm 24 hr nicotine 0.875 mg/hr transdermal system (3 sources) Cholinergic Nicotinic Agonist Start: 01-12-2023 End: 02-26-2023 apply 1 dose transdermal route once daily Nicotine Discontinued 1 PATCH TD DAILY January 12, 2023 12:00am February 26, 2023 2:49pm ondansetron 4 mg disintegrating oral tablet (8 sources) Serotonin-3 Receptor Antagonist Start: 08-12-2020 End: 09-11-2022 take 4 mg by mouth every eight hours Ondansetron Discontinued 4 MG PO Q8H August 11, 2020 11:00pm September 11, 2022 10:41am Problems Active Problems Problem Classification Problem Date Documented Date Episodic/Chronic Abdominal pain (8 sources) Abdominal pain; Translations: [Unspecified abdominal pain] 08-13-2020 Episodic Administrative/social admission (3 sources) Persons encountering health services in other specified circumstances; Translations: [Other reasons for seeking consultation] 12-10-2022 Episodic Anxiety disorders (6 sources) Panic attack; Translations: [Panic disorder [episodic paroxysmal anxiety]] Onset: 12-13-2018 12-13-2018 Chronic Cardiac dysrhythmias (1 source) Palpitations; Translations: [Palpitations] Onset: 03-01-2024 Episodic Disorders of teeth and jaw (8 sources) Dental caries; Translations: [Dental caries, unspecified] 04-22-2021 Episodic Fracture of lower limb (13 sources) Fracture of fibula; Translations: [Unspecified fracture of shaft of left fibula, initial encounter for closed fracture] Onset: 12-14-2024 12-06-2022 Episodic Immunizations and screening for infectious disease (3 sources) Encounter for immunization; Translations: [Need for prophylactic vaccination and inoculation against unspecified single disease] 12-10-2022 Episodic Mood disorders (2 sources) Major depression single episode, in partial remission; Translations: [Major depressive disorder, single episode, in partial remission] Onset: 12-13-2018 12-13-2018 Chronic Noninfectious gastroenteritis (8 sources) Enteritis of small intestine; Translations: [Noninfective gastroenteritis and colitis, unspecified] 08-13-2020 Episodic Nonspecific chest pain (9 sources) Chest pain; Translations: [Chest pain, unspecified] Onset: 04-21-2023 06-03-2022 Episodic Open wounds of extremities (16 sources) Dog bite of forearm; Translations: [Open bite of left forearm, initial encounter] 04-26-2020 Episodic Open wounds of head; neck; and trunk (16 sources) Laceration of breast; Translations: [Laceration without foreign body of unspecified breast, initial encounter] 04-26-2020 Episodic Other connective tissue disease (1 source) Presence of other bone and tendon implants; Translations: [Presence of other bone and tendon implants] Onset: 12-14-2024 Chronic Other injuries and conditions due to external causes (7 sources) Abrasion; Translations: [Other injury of unspecified body region, initial encounter] 03-24-2022 Episodic Other nervous system disorders (3 sources) Acute postoperative pain; Translations: [Other acute postprocedural pain] 01-12-2023 Episodic Other nutritional; endocrine; and metabolic disorders (13 sources) Body mass index 40+ - severely obese; Translations: [Morbid (severe) obesity due to excess calories] 03-20-2022 Chronic Other nutritional; endocrine; and metabolic disorders (5 sources) Morbid (severe) obesity due to excess calories; Translations: [Morbid obesity] Onset: 10-02-2023 12-10-2022 Chronic Other screening for suspected conditions (not mental disorders or infectious disease) (3 sources) Encounter for other screening for malignant neoplasm of breast; Translations: [Breast screening, unspecified] 12-10-2022 Episodic Other upper respiratory infections (3 sources) Sore throat symptom; Translations: [Acute pharyngitis, unspecified] 02-13-2024 Episodic Residual codes; unclassified (2 sources) Obstructive sleep apnea syndrome; Translations: [Obstructive sleep apnea (adult) (pediatric)] Onset: 01-27-2019 01-27-2019 Chronic Residual codes; unclassified (4 sources) Obstructive sleep apnea (adult) (pediatric); Translations: [Obstructive sleep apnea (adult)(pediatric)] 12-10-2022 Chronic Skin and subcutaneous tissue infections (8 sources) Infection of finger; Translations: [Cellulitis of right finger] 03-20-2022 Episodic Substance-related disorders (4 sources) Nicotine dependence, cigarettes, uncomplicated; Translations: [Tobacco use disorder] 12-10-2022 Chronic Superficial injury; contusion (7 sources) Contusion of foot; Translations: [Contusion of left foot, initial encounter] 03-24-2022 Episodic Past or Other Problems Problem Classification Problem Date Documented Date Episodic/Chronic Biliary tract disease (2 sources) Biliary calculus; Translations: [Calculus of gallbladder without cholecystitis without obstruction] Onset: 06-04-2009 Resolved: 12-13-2018 12-13-2018 Episodic Cancer of cervix (2 sources) Atypical squamous cells of undetermined significance on cervical Papanicolaou smear; Translations: [Atypical squamous cells of undetermined significance on cytologic smear of cervix (ASC-US)] Onset: 09-20-2020 09-20-2020 Episodic Results Test Name Value Interpretation Reference Range Facility MRI ANKLE W/ + W/O CONTRAST LEFTon 12-15-2024 MRI ANKLE W/ + W/O CONTRAST LEFT ORIGINAL EXAMINATION: MRI OF THE LEFT ANKLE WITHOUT AND WITH CONTRAST, 12/14/2024 11:43 am TECHNIQUE: Multiplanar multisequence MRI of the left ankle was performed without and with the administration of intravenous contrast. COMPARISON: None. HISTORY: ORDERING SYSTEM PROVIDED HISTORY: Reason for Exam: OTH FRACTURE OF UPPER AND LOWER END OF LEFT FIBULA, INIT FINDINGS: SYNDESMOTIC LIGAMENTS: Thickening of the syndesmotic ligaments noted. LATERAL COLLATERAL LIGAMENT COMPLEX: Intact anterior talofibular ligament, posterior talofibular ligament and calcaneofibular ligament. DELTOID LIGAMENT COMPLEX: Intact superficial and deep components. SINUS TARSI AND SPRING LIGAMENT: Visualized portions of the spring ligament are intact. Normal appearance of the sinus tarsi. MEDIAL TENDONS: Intact posterior tibial tendon, flexor digitorum and flexor hallucis longus tendons. LATERAL TENDONS: Intact peroneus brevis and longus tendons. There is increased edema and thickening of the peroneus longus tendon, likely representing tenosynovitis. ANTERIOR TENDONS: The tibialis anterior, extensor hallucis longus and extensor digitorum longus tendons are normal in position, morphology and signal. ACHILLES TENDON: The Achilles tendon is normal in position, morphology and signal. No associated bursitis. PLANTAR FASCIA: The medial and lateral bundles of the plantar fascia are normal in morphology and signal. There is no evidence of acute plantar fasciitis or tear. No evidence of plantar fascial nodules. Mild atrophy of the abductor digiti minimi. TARSAL TUNNEL: There are no obstructing lesions within the tarsal tunnel. BONE MARROW: Screw and plate fixation hardware is noted within the fibula and distal tibia. There is a small osteochondral lesion of the medial talar dome. JOINT SPACES: No significant joint effusion. Mild degenerative changes seen throughout the hindfoot. Multiple small osseous subchondral cysts. Hand seen lesions or focal fluid collections identified. IMPRESSION: 1. Peroneus longus tenosynovitis. 2. Chronic thickening of the syndesmotic ligaments 3. Small osteochondral injury of the medial talar dome. 4. Mild degenerative changes of the hindfoot. 5. Mild atrophy of the abductor digiti minimi. Correlate for Houser's neuropathy. 6. Portions of the exam are compromised by artifacts from the surgical hardware Interpreted by: Sree Torres MD Preliminary Report By: Medardo Rivera MD Electronically signed By Sree Torres MD Dictated Date: 12/14/2024 3:22:23 PM Prelim Date: 12/15/2024 2:30:38 PM Sign Date: 12/15/2024 2:30:38 PM Ordering Provider: TERRA QUISPE RP [facility] 02-13-2024 CNOV Office Visit (UCWSTR ) ESTRELLITA BROWN ([id number]) 1980 F Date Time Provider Department 02/13/24 11:45 AM AWA [facility] During your visit today, we recorded the following information about you: Temperature Pulse Respiration Blood pressure 98 degrees 103/minute 18/minute 118/76 Weight 142.8 kg Awa Elizabeth, MANAN.CARTRIDGE GAUGER 02/13/2024 12:26 PM Signed Subjective Sore Throat Associated symptoms include congestion and coughing. Pertinent negatives include no diarrhea, ear pain or vomiting. Estrellita Brown is a 43 year old female who presents with chest congestion and scratchy throat, raspy voice since last night. She has not had a fever. She has a productive cough this morning. No fever. Daughter is currently sick with URI symptoms. She has not taken any medication today. Review of Systems Constitutional: Negative for chills, fever and malaise/fatigue. HENT: Positive for congestion and sore throat. Negative for ear pain. Respiratory: Positive for cough and sputum production. Cardiovascular: Negative. Gastrointestinal: Negative for diarrhea, nausea and vomiting. BP 118/76 Pulse 103 Temp 36.7 ?C (98 ?F) (Tympanic) Resp 18 Wt (!) 142.8 kg (314 lb 13.1 oz) LMP 09/10/2020 (Exact Date) SpO2 98% BMI 53.09 kg/m? PAST MEDICAL HISTORY Diagnosis Date Acid reflux Anemia 2005 after natural childbirth Cholelithiasis 2009 Cholelithiasis 06/04/2009 Chronic cholecystitis 06/04/2009 Chronic cholecystitis 06/04/2009 Depression PIPE (obstructive sleep apnea) [facility] PAST SURGICAL HISTORY Procedure Laterality Date CURETTAGE 2004 also had blood transfusion LAPS SURG CHOLECYSTECTOMY W/CHOLANGIOGRAPHY 06/28/2009 Left thumb and wrist 1987? ligaments fixed after cut self with knife TONSILLECTOMY PRIMARY/SECONDARY AGE 12/1991? TUBAL LIGATION, 2006 ALLERGIES Penicillins MEDICATIONS CPAP Initiate Auto PAP @ 5-20 cm of water with humidification. Mask (per patient preference) optional chin strap (if indicated) , filters, tubing, humidifier and lifetime supplies. lamoTRIgine (LAMICTAL) 200 mg tablet Take 200 mg by mouth once daily. venlafaxine ER (EFFEXOR XR) 150 mg 24 hr capsule Take 150 mg by mouth once daily. LORazepam (ATIVAN) 0.5 mg tab FAMILY HISTORY Problem Relation Age of Onset Diabetes Maternal Aunt Diabetes Maternal Uncle other (Other: complication from surgery) Mother No Known Problems Father other (Other 23 aunts and uncles maternal) Other Pancreatic Cancer Maternal Uncle Social History Tobacco Use Smoking status: Every Day Current packs/day: 1.00 Types: Cigarettes Smokeless tobacco: Never Vaping Use Vaping status: Never Used Substance Use Topics Alcohol use: No Drug use: No Objective Physical Exam Vitals and nursing note reviewed. Constitutional: General: She is not in acute distress. Appearance: Normal appearance. She is not ill-appearing. HENT: Right Ear: Tympanic membrane, ear canal and external ear normal. Left Ear: Tympanic membrane, ear canal and external ear normal. Nose: Nose normal. Mouth/Throat: Mouth: Mucous membranes are moist. Pharynx: Uvula midline. Posterior oropharyngeal erythema present. No oropharyngeal exudate. Cardiovascular: Rate and Rhythm: Normal rate and regular rhythm. Heart sounds: Normal heart sounds. Pulmonary: Effort: Pulmonary effort is normal. No respiratory distress. Breath sounds: Normal breath sounds. No wheezing or rales. Musculoskeletal: Cervical back: Neck supple. Lymphadenopathy: Cervical: No cervical adenopathy. Skin: General: Skin is warm and dry. Findings: No erythema or rash. Neurological: Mental Status: She is alert. ASSESSMENT/PLAN: 1. Sore throat - ICD9: 462, ICD10: J02.9 (primary diagnosis) - suspect viral - Group A strep molecular testing negative - Discussed supportive care treatment with fluids, rest and analgesia. - STREP A MOLECULAR (POC) 2. Post-nasal drainage - ICD9: 473.9, ICD10: R09.82 - FLUTICASONE PROPIONATE 50 MCG/ACTUATION NASAL SPRAY,SUSPENSION 3. Viral URI - ICD9: 465.9, ICD10: J06.9 - Discussed viral etiology and rationale for treatment. - Symptomatic treatment with prn analgesia - Supportive care with fluids and rest - offered COVID/flu/RSV testing-patient declined. - Follow-up with your PCP in 3-5 days if symptoms have not improved or sooner if symptoms worsen - Discussed red flags and need for immediate medical evaluation if any occur. - Discussed supportive care treatment with fluids, rest and analgesia. - Discussed expected course of illness GEM Clemens Kathy, APRN.CNP 02/13/2024 12:26 PM Signed ASSESSMENT/PLAN: 1. Sore throat - ICD9: 462, ICD10: J02.9 (primary diagnosis) - suspect viral - Group A strep molecular testing negative - Discussed (more content not included)... Normal [facility] STREP A MOLECULAR (POC)on Procedural Control Valid [facility] Strep A (POCT) Negative Negative [facility] Basic Metabolic Profile (BMP )on 01-07-2024 BUN/CRE 13.6 RATIO Normal 10-20 [facility] Comment on above: Order Comment: 1 Y Performed By: #### L [id number], L500.2500, L100.0100 #### [facility] [address] [place], [address] CA,Total 8.9 mg/dL Normal 8.5-10.1 [facility] Comment on above: Order Comment: 1 Y Performed By: #### L [id number], L500.2500, L100.0100 #### [facility] [address] [place], [address] Chloride [Moles/Vol] 108 mmol/L High 98-107 [facility] Comment on above: Order Comment: 1 Y Performed By: #### L [id number], L500.2500, L100.0100 #### [facility] [address] [place], [address] CO2 [Moles/Vol] 26.0 mmol/L Normal 21.0-32.0 [facility] Comment on above: Order Comment: 1 Y Performed By: #### L [id number], L500.2500, L100.0100 #### [facility] [address] [place], [address] Creatinine [Mass/Vol] 1.18 mg/dL High 0.55-1.02 [facility] Comment on above: Order Comment: 1 Y Result Comment: The validity of the calculated GFR GFRAA in patients over 70 years has not been determined. Clinical correlation is essential. Performed By: #### L [id number], L500.2500, L100.0100 #### [facility] [address] [place], [address] ECRCL 85.45 ml/min Normal [facility] Comment on above: Order Comment: 1 Y Performed By: #### L [id number], L500.2500, L100.0100 #### [facility] [address] [place], [address] EST GFR - AA 64 mL/min Normal >60 [facility] Comment on above: Order Comment: 1 Y Result Comment: Afri can Faroese GFR Calc Performed By: #### L [id number], L500.2500, L100.0100 #### [facility] [address] [place], [address] GAP 7 Normal 5-15 [facility] Comment on above: Order Comment: 1 Y Performed By: #### L [id number], L500.2500, L100.0100 #### [facility] [address] [place], [address] GFR/1.73 sq M.predicted among non-blacks MDRD (S/P/Bld) [Vol rate/Area] 53 mL/min/{1.73_m2} Low >60 [facility] Comment on above: Order Comment: 1 Y Result Comment: Non- GFR Calc Performed By: #### L [id number], L500.2500, L100.0100 #### [facility] [address] [place], [address] Glucose [Mass/Vol] 127 mg/dL High 74-106 [facility] Comment on above: Order Comment: 1 Y Result Comment: Fast ing Glucose result greater than or equal to 126 mg/dL suggests DIABETES MELLITUS per A.D.A. criteria. Performed By: #### L [id number], L500.2500, L100.0100 #### [facility] [address] [place], [address] Potassium [Moles/Vol] 4.1 mmol/L Normal 3.5-5.1 [facility] Comment on above: Order Comment: 1 Y Performed By: #### L [id number], L500.2500, L100.0100 #### [facility] [address] [place], [address] Sodium [Moles/Vol] 140 mmol/L Normal 136-145 [facility] Comment on above: Order Comment: 1 Y Performed By: #### L [id number], L500.2500, L100.0100 #### [facility] [address] [place], [address] Urea nitrogen [Mass/Vol] 16 mg/dL Normal 7-18 [facility] Comment on above: Order Comment: 1 Y Performed By: #### L 501.5425, L500.2500, L100.0100 #### [facility] [address] [place], [address] CBC W/Diff, Automatedon 12-11 Absolute Lymph 3.96 X10 3/uL Normal 0.83-4.51 [facility] Comment on above: Performed By: #### L 501.5425, L500.2500, L100.0100 #### [facility] [address] [place], [address] Absolute Neut 5.2 X10 3/uL Normal 2.0-7.7 [facility] Comment on above: Performed By: #### L 501.5425, L500.2500, L100.0100 #### [facility] [address] [place], [address] Basophils/100 WBC (Bld) 0.8 % Normal 0-1 [facility] Comment on above: Performed By: #### L 501.5425, L500.2500, L100.0100 #### [facility] [address] [place], [address] Eosinophils/100 WBC (Bld) 0.7 % Normal 0-5 [facility] Comment on above: Performed By: #### L 501.5425, L500.2500, L100.0100 #### [facility] [address] [place], [address] Erythrocyte distribution width (RBC) [Ratio] 14.5 % Normal 11.6-14.6 [facility] Comment on above: Performed By: #### L 501.5425, L500.2500, L100.0100 #### [facility] [address] [place], [address] Hematocrit (Bld) [Volume fraction] 40.4 % Normal 37-47 [facility] Comment on above: Performed By: #### L 501.5425, L500.2500, L100.0100 #### [facility] [address] [place], [address] Hemoglobin (Bld) [Mass/Vol] 13.0 g/dL Normal 12.0-15.0 [facility] Comment on above: Performed By: #### L 501.5425, L500.2500, L100.0100 #### [facility] [address] [place], [address] IG% 0.200 Normal 0.0-0.9 [facility] Comment on above: Result Comment: IG% - Immature Granulocytes (promyelocytes, myelocytes and metamyelocytes) > 1% indicates that a LEFT SHIFT is Present. Performed By: #### L 501.5425, L500.2500, L100.0100 #### [facility] [address] [place], [address] Lymphocytes/100 WBC (Bld) 39.7 % Normal 19-41 [facility] Comment on above: Performed By: #### L 501.5425, L500.2500, L100.0100 #### [facility] [address] [place], [address] MCH (RBC) [Entitic mass] 28.8 pg Normal 27.0-32.0 [facility] Comment on above: Performed By: #### L 501.5425, L500.2500, L100.0100 #### [facility] [address] [place], [address] MCHC (RBC) [Mass/Vol] 32.2 g/dL Normal 32-36 [facility] Comment on above: Performed By: #### L 501.5425, L500.2500, L100.0100 #### [facility] [address] [place], [address] MCV (RBC) [Entitic vol] 89.4 fL Normal 81-99 [facility] Comment on above: Performed By: #### L 501.5425, L500.2500, L100.0100 #### [facility] [address] [place], [address] Monocytes/100 WBC (Bld) 6.0 % Normal 0-10 [facility] Comment on above: Performed By: #### L 501.5425, L500.2500, L100.0100 #### [facility] [address] [place], [address] Neutrophils/100 WBC (Bld) 52.6 % Normal 47-70 [facility] Comment on above: Performed By: #### L 501.5425, L500.2500, L100.0100 #### [facility] [address] [place], [address] Nucleated RBC (Bld) [#/Vol] 0 10*3/uL Normal 0-5 [facility] Comment on above: Performed By: #### L 501.5425, L500.2500, L100.0100 #### [facility] [address] [place], [address] Platelet mean volume (Bld) [Entitic vol] 11.5 fL Normal 6.2-12.0 [facility] Comment on above: Performed By: #### L 501.5425, L500.2500, L100.0100 #### [facility] [address] [place], [address] Platelets (Bld) [#/Vol] 418 10*3/uL Normal 150-450 [facility] Comment on above: Performed By: #### L 501.5425, L500.2500, L100.0100 #### [facility] [address] [place], [address] RBC (Bld) [#/Vol] 4.52 10*6/uL Normal 4.2-5.4 [facility] Comment on above: Performed By: #### L 501.5425, L500.2500, L100.0100 #### [facility] [address] [place], [address] RDW SD 47.1 fl High 35.1-43.9 [facility] Comment on above: Performed By: #### L 501.5425, L500.2500, L100.0100 #### [facility] [address] [place], [place], [address] WBC (Bld) [#/Vol] 10.0 10*3/uL Normal 4.4-11.0 [facility] Comment on above: Performed By: #### L 501.5425, L500.2500, L100.0100 #### [facility] [address] [place], [place], [address] CTA Chest W/WO Contraston CTA Chest W/WO Contrast [facility] [address] [facility] [place], [place] [address] CTA Chest W/WO Contrast MR#: [id number] Acct: [id number] Name: ESTRELLITA BROWN Rep #: [id number] : 1980 F 43 From: Wayne Coronado MD PCP: Dr. Aide Millan MD Status: [facility] Study: CTA Chest W/WO Contrast Date of Exam: 01/07/24 Exam# [id number] Ordering Dr: Ta Brown DO [id number] EXAM: CT ANGIOGRAPHY CHEST WITHOUT AND WITH INTRAVENOUS CONTRAST CLINICAL INDICATION: Elevated dimer, shortness of breath, chest pain TECHNIQUE: Helically acquired angiography images were obtained of the chest without and with intravenous contrast. This CT exam was performed using one or more of the following dose reduction techniques: automated exposure control, adjustment of the mA and/or kV according to patient size, and/or use of iterative reconstruction technique. MIP reconstructed images were created and reviewed. CONTRAST: IV 100mL Isovue-370 RADIATION DOSE: CTDIvol = 24.54 mGy, DLP = 559.25 mGy-cm COMPARISON: CTA chest 02/11/2023. FINDINGS: PULMONARY ARTERIES: Unremarkable. Normal in caliber. No evidence of pulmonary embolism. AORTA: Unremarkable. Normal in caliber. No evidence of dissection. GREAT VESSELS OF AORTIC ARCH: Unremarkable. Normal in caliber. No evidence of dissection. LUNGS AND PLEURAL SPACES: Unremarkable. No mass. No consolidation or edema. No pleural effusion or thickening. No pneumothorax. HEART: Unremarkable. Heart size is normal. No pericardial effusion. No significant coronary artery calcifications. MEDIASTINUM: Unremarkable. No mediastinal or hilar adenopathy. Esophagus is unremarkable. No hiatal hernia. THYROID: Unremarkable. No thyroid lesions. BONES/JOINTS: Unremarkable. No suspicious lytic or blastic abnormality. CT/CTA Chest W/WO Contrast IMPRESSION: Negative CTA chest and unchanged. Electronically Signed: Wayne Coronado MD at 20:51 EST , CC: Dr. Aide Millan MD; Dr. Ta Brown DO Alternative Energy Engineer: Signed Normal [facility] Chest 1 View (Portable)on Chest 1 View (Portable) [facility] [address] [place] [address] Chest 1 View (Portable) MR#: [id number] Acct: [id number] Name: ESTRELLITA BROWN Rep #: [id number] : 1980 F 43 From: Wayne Coronado MD PCP: Dr. Aide Millan MD Status: REG ER Study: Chest 1 View (Portable) Date of Exam: 01/07/24 Exam# [id number] Ordering Dr: Jonathan Phillips DO [id number] EXAM: XR CHEST, 1 VIEW CLINICAL INDICATION: chest pain TECHNIQUE: Frontal view of the chest. COMPARISON: 02/11/2023. FINDINGS: LUNGS AND PLEURAL SPACES: Unremarkable. No consolidation or edema. No pneumothorax. No effusion. HEART: Unremarkable. Cardiac silhouette not enlarged. MEDIASTINUM: Central airways and mediastinal contour are unremarkable. BONES/JOINTS: Unremarkable. No acute fracture. SOFT TISSUES: Unremarkable. RAD/Chest 1 View (Portable) IMPRESSION: Normal chest radiograph and unchanged. Electronically Signed: Wayne Coronado MD at 20:30 EST , CC: Dr. Aide Millan MD; Dr. Jonathan Phillips DO Alternative Energy Engineer: Signed Normal [facility] D-Dimer Quantitative (DVT/PE )on 01-07-2024 D-DIMER QUANT 0.58 FEU/ug/m Invalid Interpretation Code 0.27-0.49 [facility] Comment on above: Result Comment: D-Di torrie ELEVATED (>0.49): Additional studies and clinical assessments are indicated to conclude diagnosis of: Deep Vein Thrombosis (DVT) or Pulmonary Embolism (PE) CRITICAL VALUE CALLED TO LSPARR 01/07/242008 Nettie Cotto. RESULTS READ BACK BY SAME. Performed By: #### L 300.8000 #### [facility] [address] [facility] [place], [address] Emergency Department Summary on 01-07-2024 Emergency Department Summary [facility] Medical Records Department [address] [place] [address] Emergency Department Summary 01/07/24 MR#: [id number] Acct: [id number] Name: ESTRELLITA BROWN Rep #: [id number] : 1980 43 From: Ta Brown DO PCP: Dr. Aide Millan MD Status:DEP ER Location: ED HPI History of Present Illness Chief Complaint: Chest Pain Narrative Narrative: Chief complaint and HPI: 43-year-old female with past medical history of anxiety and depression presents for evaluation of palpitations. Onset of symptoms was earlier this morning. Patient states while in the kitchen making food she developed palpitations. She states she thought it was her anxiety so she took a nap. When she woke up she continued to have palpitation with 1 episode of emesis. She states she is mildly nauseous. Patient states her palpitations have not improved which is why she came for evaluation. She does endorse some chest pressure with mild shortness of breath. She denies any fever, chills, URI symptoms, abdominal pain. Denies any recent travel or surgery. Denies any bilateral lower extremity swelling or pain. Patient states that she has had chest pain in the past with unremarkable workup. On chart review she had a stress test earlier this year without any ischemic changes. Her EF was 60%. Review of systems: See HPI Medications: As listed on the chart Allergies: As listed on the chart PFSH: Per chart Vital signs: As listed on the chart. Reviewed. Physical exam: Gen: A O x3, anxious and tearful Head: Normocephalic, atraumatic Eyes: No sclera icterus, conjunctiva clear ENT: Moist mucous membranes Neck: Trachea midline, No JVD CV: Tachycardic, regular rhythm, no murmurs, no peripheral edema Resp: Lungs CTA BL, no w/r/c GI: Abd soft, non-distended, non-tender, no r/r/g Musc: Full ROM, no deformity Skin: Warm, dry Neuro: Alert, oriented, grossly intact, sensation intact Psych: Cooperative, appropriate mood and affect [facility] Medical History Wears glasses High cholesterol Restless legs Heartburn Shortness of breath on exertion CPAP (continuous positive airway pressure) dependence Sleep apnea Smoker PONV (postoperative nausea and vomiting) Gallstones History of blood transfusion Anxiety Depression Home Medications ???Medication ???Instructions ???Recorded ???Last Taken ???Type lamotrigine 200 mg tablet 200 mg PO DAILY 12/10/22 01/12/23 History lorazepam 0.5 mg tablet 0.5 mg PO DAILY PRN anxiety 12/10/22 01/12/23 06:00 History venlafaxine 150 mg 150 mg PO DAILY 12/10/22 01/12/23 History capsule,extended release 24 hr buspirone 10 mg tablet mg PO 02/26/23 Unknown History tirzepatide 2.5 mg/0.5 mL 2.5 mg (0.5 mL) subcut QWEEK #2 mL 10/02/23 Unknown Rx subcutaneous pen injector Allergy/AdvReac Type Severity Reaction Status Date / Time Penicillins Allergy Mild Itching Verified 10/02/23 11:30 Family History Mother Surgical complication passed after gastric bypass Thyroid disorder Aunt Diabetes Uncle Diabetes Other Depression Surgical History History of surgery on lower extremity H/O wrist surgery Hx of dilation and curettage Hx of tubal ligation Hx of tonsillectomy History of cholecystectomy Social History household members: significant other and children number of children: 2 current occupational status: employed current occupation: [employer] Smoking Status: Current every day smoker tobacco type: cigarettes and e-cigarettes Electronic Cigarette Use: not used alcohol intake: never substance use type: does not use do you feel safe at home: Yes EXAM Physical Exam Const Vital Signs: 01/07/24 18:45 01/07/24 19:25 01/07/24 19:30 Temperature 96.8 F L Temperature Source Temporal Pulse Rate 57 L 98 Respiratory Rate 19 H 14 Blood Pressure 147/70 H 139/90 H Blood Pressure Mean 95 103 Pulse Ox 97 100 Oxygen Delivery Method Room Air Room Air 01/07/24 20:00 01/07/24 21:00 01/07/24 22:00 Temperature Temperature Source Pulse Rate 87 83 81 Respiratory Rate 17 14 21 H Blood Pressure 139/87 H 127/80 H 116/83 H Blood Pressure Mean 99 93 94 Pulse Ox 98 97 Oxygen Delivery Method 01/07/24 22:00 01/07/24 22:00 01/07/24 22:56 Temperature 97 F L 98 F Temperature Source Pulse Rate 76 76 83 Respiratory Rate 16 16 22 H Blood Pressure 116/64 116/64 125/75 H Blood Pressure Mean 81 81 91 Pulse Ox 97 97 97 Oxygen Delivery Method MDM MDM MDM Narrative Medical decision making narrative: (more content not included)... Normal [facility] L501.4020on 01-07-2024 TROPONIN-I HS 3 pg/mL Normal 3.0-54.0 [facility] Comment on above: Result Comment: Plea se Note: New Test Units and Gender Specific Reference Ranges. For more information see Policy Stat Procedure [place] High Sensitivity Troponin (TNIH) and attachments. Performed By: #### L 501.4020 ####[facility] [address] [place], [address] L501.5425on 01-07-2024 TROPONIN-I HS 4 pg/mL Normal 3.0-54.0 [facility] Comment on above: Order Comment: 1Y Result Comment: Destiney guzman Note: New Test Units and Gender Specific Reference Ranges. For more information see Policy Stat Procedure [place] High Sensitivity Troponin (TNIH) and attachments. Performed By: #### L 501.5425, L500.2500, L100.0100 ####[facility] [address] [place], [address] Magnesiumon 01-07-2024 Magnesium [Mass/Vol] 2.0 mg/dL Normal 1.6-2.6 [facility] Comment on above: Performed By: #### L 501.9520, L501.5200 #### [facility] [address] [place], [address] Thyroid Stim Hormone (TSH)on 01-07-2024 TSH 2.140 uIU/mL Normal 0.358-3.740 [facility] Comment on above: Performed By: #### L 501.9520, L501.5200 #### [facility] [address] [place], [address] Internal Medicine Office Vis iton 10-02-2023 Internal Medicine Office Visit [facility] [address] [place] [address] [place] [address] OFFICE VISIT Date of Service: 10/02/23 MR#: [id number] Acct: [id number] Name: ESTRELLITA BROWN Ricky Rep #: [id number] : 1980 Provider: SY perez Age/Sex: 43/F Location[place] [facility] Status: Signed Intake Vital Signs 09/24/23 11:00 10/02/23 11:29 Height 5 ft 4 in 5 ft 4 in Weight: 313 lb BMI 53.7 BP 134/86 H Blood Pressure Location Lt brachial Position Sitting Respiration 17 Pulse 82 Pulse Source Monitor Temp 97.0 F L Temp Source Temporal Comment unable to read pulse oximetry, pt has thick fake nails on Intake Visit Reasons: ACUTE WEIGHTLOSS DISCUSSION Chief Complaint: ACUTE WEIGHTLOSS DISCUSSION Is patient in pain?: No Allergies Penicillins Allergy (Mild, Verified 10/02/23 11:30) Itching Medications ???Medication ???Instructions ???Recorded ???Confirmed ???Type lamotrigine 200 mg tablet 200 mg PO DAILY 12/10/22 10/02/23 History lorazepam 0.5 mg tablet 0.5 mg PO DAILY PRN anxiety 12/10/22 10/02/23 History venlafaxine 150 mg 150 mg PO DAILY 12/10/22 10/02/23 History capsule,extended release 24 hr buspirone 10 mg tablet mg PO 02/26/23 02/26/23 History tirzepatide 2.5 mg/0.5 mL 2.5 mg (0.5 mL) subcut QWEEK #2 mL 10/02/23 10/02/23 Rx subcutaneous pen injector Have you fallen in the past year?: Yes PFSH Medical History Wears glasses High cholesterol Restless legs Heartburn Shortness of breath on exertion CPAP (continuous positive airway pressure) dependence Sleep apnea Smoker PONV (postoperative nausea and vomiting) Gallstones History of blood transfusion Anxiety Depression Surgical History History of surgery on lower extremity H/O wrist surgery Hx of dilation and curettage Hx of tubal ligation Hx of tonsillectomy History of cholecystectomy Family History Mother Surgical complication passed after gastric bypass Thyroid disorder Aunt Diabetes Uncle Diabetes Other Depression Social History household members: significant other and children number of children: 2 current occupational status: employed current occupation: [employer] Smoking Status: Current every day smoker tobacco type: cigarettes and e-cigarettes Electronic Cigarette Use: not used alcohol intake: never substance use type: does not use do you feel safe at home: Yes HPI HPI Chief Complaint: ACUTE WEIGHTLOSS DISCUSSION Details: ESTRELLITA BROWN, is a 43 F who presents to the office today for an acute visit to discuss weight management. She reports she has struggled with being overweight her whole life and was in nutrition counseling as a child. She reports a family history of obesity with several family members having went through bariatric surgery. She states she has tried several diets in the past without success may lose a little bit of weight but looking at right back, most recently she tried keto which was not sustainable for her. She has never met with a dietitian. Within the past year she underwent surgery for a broken ankle and completed physical therapy. She now has mobility back but will have some residual pain with ambulation. She states that she has been doing aqua therapy/aqua exercise multiple times per week over the past few weeks for exercise. She is interested in pursuing pharmacologic management for obesity. She previously discussed bariatric surgery with her provider but would like to opt for less invasive method first. She reports family members have had several complications with bariatric surgery in the past and she is hesitant to use this as a first-line treatment. ROS Const Constitutional: No body ache, chills, excessive sweating, fatigue, fever(s), frequent falls, headache(s), snoring, weight change, sleep problems, abnormal sleep pattern or change in appetite Eyes Eyes: No blurry vision, change in vision, eye pain or Light sensitivity ENT ENT: No abnormal hearing, ear or mastoid pain, tinnitus, nasal congestion, headache(s), neck pain or sore throat Resp Respiratory: No cough, shortness of breath, snoring or wheezing Cardio Cardiology: No chest pain at rest, chest pain with exertion, excessive sweating, shortness of breath, dyspnea on exertion, lightheadedness, orthopnea or palpitations Gastro GI: No abdominal pain, change in bowel habits, constipation, cramping, diarrhea, nausea/dyspepsia or vomiting Genitourinary-Female: No burning urination, painful urination, urinary incontinence, urinary frequency, abnormal vaginal bleeding or pelvic pain Musc Musculoskeletal: No abnormal (more content not included)... Normal [facility] Re-Evaluation - PT (1)on Re-Evaluation - PT (1) [facility] [address] [place] [address]. [address] [place] [address] / REEVALUATION / MEDICARE RECERTIFICATION PHYSICAL THERAPY MR#: [id number] Acct: [id number] Name: ESTRELLITA BROWN Rep #: [id number] : 1980 42 From: Gino Gasca DPT Referring Dr.: TOÑO Montalvo Status:REG RCR Insurance: [facility] Re-Evaluation Intro: Dr. Bhavin Montalvo, DPM, It has been my pleasure to treat ESTRELLITA BROWN over the last 18 visits for L fibular fx and ORIF with syndesmosis stablization. Please see the progress note below for an update on the physical therapy plan of care! Subjective Subjective: Pt. reports overall doing better, but not where she wants to be. Pt. reports being HEP compliant. Pt. reports being 65% better overall. She is still having issues with progressive walkin g and popping in her L ankle. Objective Objective/Function: MMT: L ankle: PF 38.9#, DF 21.3#, EVR 13.4#, INV 15.9# ROM: DF 13deg, PF 43deg, EVR 12deg, INV 27deg. pain at rest 0-1/10, gait: 2/10 initially, but does have a popping feel that increases her pain to 4/10. Walking upto 10 minutes her pain increases. Pain all at distal lateral leg, ankle. Occasionally "it feels like her leg wants to give out on her." gait: Pt. has increased pain during L stance phase resulting in decreased R step length and decreased L stance phase. Antalgic during L stance phase. SLS: 12sec in LLE. Pt. unable to complete single leg heel raise on L foot. Able to complete B heel raises, but does have popping on the lateral ankle with every attempt STAIRS: Pt. is able to ascend with 1 HR, relatively okay. Descending: she unable to effectively complete with reciprocal pattern secondary to pain. She can do it, but has early L heel off and heavy use of BHR. 6 MWT: 846 feet Plan Plan Plan: I would recommend more therapy to increase DF ROM to all for better tolerance with walking and descend stairs, increased tolerance with walking progressing towards more lifting techniques. 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 Recommending increased therapy. Balance/Gait/Functiona l tests Balance/Special Test Scores Lower Extremity Functional Score: 17 6 Minute Walk Test: 846 feet progressive increasing pain and marked increased popping. (below normal age values) Goals Goals Goal 1:: STG: Pt will demonstrate equal weightshifting severino while wearing CAM boot with appropriate UE support (MET) New goal: 04/28: Pt. to have normal gait pattern without use of AD with 0-2/10 pain in L ankle. 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 Goal Time Frame: 4-6 Weeks Goal Progress: Progressing Goal 6:: LTG: Pt will be able to ascend/descend stairs with <2/10 pain Goal Time Frame: 4-6 Weeks Goal Progress: Progressing Anticipated Interventions Anticipated Interventions Patient/Client Instruction: Educate patient on: Condition, Plan of Care and Risk Factors For the Purpose of:: To decrease pain, To decrease swelling/inflammation, To increase ROM, To improve nutrient delivery to tissue, To increase tolerance to activity/condition/pos ition, To improve ability of physical actions for home/community/work/le isure, To improve gait and locomotor functions, To improve health of tissue, To decrease soft tissue restriction, To increase flexibility/ROM, To improve endurance, To improve balance, To improve safety with gait, To assume or resume ADL's, To reduce risk of recurrence, To improve safety, To improve self management and To improve ability to perform tasks related to life management Therapeutic Exercise to Include: Strength training, Balance training, Flexibilty training, Gait and locomotor training and Active ROM For the Purpose of:: To decrease pain, To decrease swelling/inflammation, To increase ROM, To improve nutrient delivery to tissue, To improve ability to perform ADL's, To increase tolerance to activity/condition/pos ition, To improve performance and independence with ADL's, To decrease level of supervision to perform tasks, To improve ability of physical actions for home/community/work/le isure, To improve ga (more content not included)... Normal [facility] Stress Reporton 04-13-2023 Stress Report [facility] [address] [place] [address] MR#: [id number] Acct: [id number] Name: ESTRELLITA BROWN Rep #: [id number] : 1980 42 From: Khoa Villavicencio MD Primary Care: Dr. Aide Millan MD Status: REG CLI Referring Dr: Aide Millan MD Sex: F C Stress Test Report Date: 04/13/2023 Procedure: Pharmacologic stress nuclear imaging study Indications: Chest pain Consent: Per the patient Procedure: The patient underwent pharmacologic (Regadenoson 0.4mg ) evaluation with a peak heart rate of 107 beats per minute (60%predicted maximal heart rate) and a peak blood pressure of 140/79 mmHg. The baseline ECG demonstrated sinus rhythm. The peak pharmacologic ECG demonstrated no ischemic changes. There were no cardiac dysrhythmias pretest, during pharmacologic infusion, or recovery. There was no complaint of chest discomfort during pharmacologic infusion or recovery. The patient was injected with 14.7 millicuries of technetium 99m Cardiolite and subsequently rest SPECT Cardiolite nuclear imaging was obtained in the horizontal long, vertical long, and short axis views. The patient underwent pharmacologic (Regadenoson) evaluation. The patient was injected with 44.9 millicuries of technetium 99m Cardiolite and subsequently stress SPECT Cardiolite nuclear imaging was obtained in the horizontal long, vertical long, and short axis views. A gated Cardiolite study at peak stress was obtained. The examination was stopped secondary to completion of protocol. Rest and stress SPECT Cardiolite nuclear imaging status post realignment, normalization, and attenuation correction demonstrate no fixed or reversible perfusion defects. There is end systolic thickening and brightening. The gated Cardiolite study demonstrates myocardial thickening and inward wall motion. The reported LVEF is 68%. Impression: 1. Pharmacologic (Regadenoson) evaluation 2. Peak pharmacologic ECG with no ischemic changes. 3. There were no cardiac dysrhythmias pretest, during pharmacologic infusion, or recovery. 5. Rest and stress SPECT Cardiolite nuclear imaging demonstrate relative uniform tracer uptake and myocardial perfusion appearing within normal limits. 6. The gated Cardiolite study reports an LVEF of 68%. This note was generated with Preclick dictation software. It may contain incorrect words, spelling, and punctuation that were not noted in checking the note before signing. 04/13/23 1018 Date Khoa Villavicencio MD CC: Dr. Aide Millan MD Date Dictated: 04/13/23 1016 Date Transcribed: 04/13/23 1016 [employer] Engineer: CHRIS Signed Normal [facility] .Auto Diffon 02-17-2023 Basophil, Absolute 0.1 10 3/mcL Normal 0.0-0.2 [facility] ([place]) Comment on above: Performed By: #### C RADHA DE OLIVEIRA MDW, ANEU, DIMER, TROPHS, GFR, BMP #### [address] [address] Basophils/100 WBC (Bld) 1.2 % Normal 0.0-2.5 [facility] ([place]) Comment on above: Performed By: #### C RADHA DE OLIVEIRA MDW, ANEU, DIMER, TROPHS, GFR, BMP #### [address] [address] Eosinophil, Absolute 0.1 10 3/mcL Normal 0.0-0.4 [facility] ([place]) Comment on above: Performed By: #### C ARDHA DE OLIVEIRA MDW, ANEU, DIMER, TROPHS, GFR, BMP #### [address] [address] Eosinophils/100 WBC (Bld) 0.6 % Normal 0.0-7.0 [facility] ([place]) Comment on above: Performed By: #### C RADHA DE OLIVEIRA MDW, ANEU, DIMER, TROPHS, GFR, BMP #### [address] [address] Lymphocyte, Absolute 2.5 10 3/mcL Normal 0.8-3.9 [facility] ([place]) Comment on above: Performed By: #### C RADHA DE OLIVEIRA MDW, ANEU, DIMER, TROPHS, GFR, BMP #### [address] [address] Lymphocytes/100 WBC (Bld) 23.1 % Normal 10.0-50.0 [facility] ([place]) Comment on above: Performed By: #### C RADHA DE OLIVEIRA MDW, ANEU, DIMER, TROPHS, GFR, BMP #### [address] [address] Monocyte, Absolute 0.8 10 3/mcL Normal 0.2-1.0 [facility] ([place]) Comment on above: Performed By: #### C RADHA DE OLIVEIRA MDW, ANEU, DIMER, TROPHS, GFR, BMP #### [address] [address] Monocytes/100 WBC (Bld) 7.4 % Normal 1.7-13.0 [facility] ([place]) Comment on above: Performed By: #### C RADHA DE OLIVEIRA MDW, ANEU, DIMER, TROPHS, GFR, BMP #### [address] [address] Neutrophils/100 WBC (Bld) 67.7 % Normal 37.0-80.0 [facility] ([place]) Comment on above: Performed By: #### C RADHA DE OLIVEIRA MDW, ANEU, DIMER, TROPHS, GFR, BMP #### [address] [address] .GFRon 02-17-2023 GFR 103 ml/min/1.73sqm Normal [facility] ([place]) Comment on above: Result Comment: GFR Population mean for , Non- Americans Ages 20-29 = 116 mL/min/1.73 sq.m. Ages 30-39 = 107 mL/min/1.73 sq.m. Ages 40-49 = 99 mL/min/1.73 sq.m. Ages 50-59 = 93 mL/min/1.73 sq.m. Ages 60-69 = 85 mL/min/1.73 sq.m. Ages 70+ = 75 mL/min/1.73 sq.m. Chronic Kidney Disease: Less than 60 mL/min/1.73 square meters End Stage Renal Disease: Less than 15 mL/min/1.73 square meters Performed By: #### C RADHA DE OLIVEIRA MDW, ANEU, DIMER, TROPHS, GFR, BMP #### [address] [address] GFR Non- 85 ml/min/1.73sqm Normal [facility] ([place]) Comment on above: Result Comment: GFR Population mean for , Non- Americans Ages 20-29 = 116 mL/min/1.73 sq.m. Ages 30-39 = 107 mL/min/1.73 sq.m. Ages 40-49 = 99 mL/min/1.73 sq.m. Ages 50-59 = 93 mL/min/1.73 sq.m. Ages 60-69 = 85 mL/min/1.73 sq.m. Ages 70+ = 75 mL/min/1.73 sq.m. Chronic Kidney Disease: Less than 60 mL/min/1.73 square meters End Stage Renal Disease: Less than 15 mL/min/1.73 square meters Performed By: #### C RADHA DE OLIVEIRA MDW, ANEU, DIMER, TROPHS, GFR, BMP #### [address] [address] .MDWon 02-17-2023 Monocyte Distribution Width 20.27 High 0.00-20.00 [facility] ([place]) Comment on above: Result Comment: For adults in ED, MDW>20.0 may be associated with a higher risk of sepsis during the first 12hrs of hospital admission Performed By: #### C RADHA DE OLIVEIRA MDW, ANEU, DIMER, TROPHS, GFR, BMP #### [address] [address] .NEUABSon 02-17-2023 Neutrophil, Absolute 7.2 10 3/mcL High 2.9-6.2 [facility] ([place]) Comment on above: Performed By: #### C RADHA DE OLIVEIRA MDW, ANEU, DIMER, TROPHS, GFR, BMP #### [address] [address] BMPon 02-17-2023 BUN/Creatinine Ratio 11 ratio Normal 7-27 [facility] ([place]) Comment on above: Performed By: #### C RADHA DE OLIVEIRA MDW, ANEU, DIMER, TROPHS, GFR, BMP #### [address] [address] Calcium [Mass/Vol] 9.3 mg/dL Normal 8.4-10.2 [facility] ([place]) Comment on above: Performed By: #### C RADHA DE OLIVEIRA MDW, ANEU, DIMER, TROPHS, GFR, BMP #### [address] [address] Chloride [Moles/Vol] 102 mmol/L Normal 98-107 [facility] ([place]) Comment on above: Performed By: #### C RADHA DE OLIVEIRA MDW, ANEU, DIMER, TROPHS, GFR, BMP #### [address] [address] CO2 [Moles/Vol] 29 mmol/L Normal 22-29 [facility] ([place]) Comment on above: Performed By: #### C RADHA DE OLIVEIRA MDW, ANEU, DIMER, TROPHS, GFR, BMP #### [address] [address] Creatinine [Mass/Vol] 0.74 mg/dL Normal 0.55-1.02 [facility] ([place]) Comment on above: Performed By: #### C RADHA DE OLIVEIRA MDW, ANEU, DIMER, TROPHS, GFR, BMP #### [address] [address] Electrolyte Balance 10.0 mEq/L Normal 4.0-15.0 [facility] ([place]) Comment on above: Performed By: #### C RADHA DE OLIVEIRA MDW, ANEU, DIMER, TROPHS, GFR, BMP #### [address] [address] Glucose [Mass/Vol] 96 mg/dL Normal 70-105 [facility] ([place]) Comment on above: Performed By: #### C RADHA DE OLIVEIRA MDW, ANEU, DIMER, TROPHS, GFR, BMP #### [address] [address] Potassium [Moles/Vol] 4.2 mmol/L Normal 3.5-5.1 [facility] ([place]) Comment on above: Performed By: #### C RADHA DE OLIVEIRA MDW, ANEU, DIMER, TROPHS, GFR, BMP #### [place] [address] Sodium [Moles/Vol] 141 mmol/L Normal 136-145 [facility] ([place]) Comment on above: Performed By: #### C RADHA DE OLIVEIRA MDW, ANEU, DIMER, TROPHS, GFR, BMP #### [place] [id number] Urea nitrogen [Mass/Vol] 8 mg/dL Normal 7-18 [facility] ([place]) Comment on above: Performed By: #### C RADHA DE OLIVEIRA MDW, ANEU, DIMER, TROPHS, GFR, BMP #### [address] [address] CBCon 02-17-2023 Erythrocyte distribution width (RBC) [Ratio] 14.7 % High 11.5-14.5 [facility] ([place]) Comment on above: Performed By: #### C RADHA DE OLIVEIRA MDW, ANEU, DIMER, TROPHS, GFR, BMP #### [place] [id number] Hematocrit (Bld) [Volume fraction] 40.6 % Normal 37.0-47.0 [facility] ([place]) Comment on above: Performed By: #### C RADHA DE OLIVEIRA MDW, ANEU, DIMER, TROPHS, GFR, BMP #### [address] [address] Hgb 13.8 G/dL Normal 12.0-16.0 [facility] ([place]) Comment on above: Performed By: #### C RADHA DE OLIVEIRA MDW, ANEU, DIMER, TROPHS, GFR, BMP #### [address] [address] MCH (RBC) [Entitic mass] 30.3 pg Normal 27.0-31.2 [facility] ([place]) Comment on above: Performed By: #### C RADHA DE OLIVEIRA MDW, ANEU, DIMER, TROPHS, GFR, BMP #### [address] [address] MCHC 34.0 G/dL Normal 33.0-37.0 [facility] ([place]) Comment on above: Performed By: #### C RADHA DE OLIVEIRA MDW, ANEU, DIMER, TROPHS, GFR, BMP #### [address] [address] MCV (RBC) [Entitic vol] 89.0 fL Normal 80.0-94.0 [facility] ([place]) Comment on above: Performed By: #### C RADHA DE OLIVEIRA MDW, ANEU, DIMER, TROPHS, GFR, BMP #### [address] [address] Platelet 327 10 3/mcL Normal 130-400 [facility] ([place]) Comment on above: Performed By: #### C RADHA DE OLIVEIRA MDW, ANEU, DIMER, TROPHS, GFR, BMP #### [address] [address] Platelet mean volume (Bld) [Entitic vol] 8.8 fL Normal 7.4-10.4 [facility] ([place]) Comment on above: Performed By: #### C RADHA DE OLIVEIRA MDW, ANEU, DIMER, TROPHS, GFR, BMP #### [address] [address] RBC 4.56 10 6/mcL Normal 4.20-5.40 [facility] ([place]) Comment on above: Performed By: #### C RADHA DE OLIVEIRA MDW, ANEU, DIMER, TROPHS, GFR, BMP #### [facility] [address], [place] [address] WBC 10.7 10 3/mcL Normal 4.6-10.8 [facility] ([place]) Comment on above: Performed By: #### C RADHA DE OLIVEIRA MDW, ANEU, DIMER, TROPHS, GFR, BMP #### [facility] [address], [place] [address] CT ANGIOGRAPHY CHEST W/CONTR Blanche 02-17-2023 CT ANGIOGRAPHY CHEST W/CONTRAST ORIGINAL EXAMINATION: CTA OF THE CHEST 02/17/2023 4:05 pm TECHNIQUE: CTA of the chest was performed after the administration of intravenous contrast. Multiplanar reformatted images are provided for review. MIP images are provided for review. Automated exposure control, iterative reconstruction, and/or weight based adjustment of the mA/kV was utilized to reduce the radiation dose to as low as reasonably achievable. COMPARISON: February 17, 2023 chest x-ray HISTORY: ORDERING SYSTEM PROVIDED HISTORY: Reason for Exam: elevated D-Dimer FINDINGS: No osseous abnormality identified. Small scattered areas of pulmonary and pleural scarring are visible. No focal infiltrates are visible, and there is no pleural fluid present. No mediastinal adenopathy is evident. No pulmonary artery defect is visible to suggest thromboembolism. No additional contributory abnormality seen. IMPRESSION: No evidence of pulmonary embolism or acute pulmonary abnormality. Interpreted by: Mega Mckeon MD Preliminary Report By: Mega Mckeon MD Electronically signed By Mega Mckeon MD Dictated Date: 02/17/2023 4:10:18 PM Prelim Date: 02/17/2023 4:12:03 PM Sign Date: 02/17/2023 4:12:03 PM Ordering Provider: KRISSY PERRY Normal [facility] ([place]) DIMERon 02-17-2023 D-Dimer 546 ng/mL D-DU High 0-230 [facility] ([place]) Comment on above: Result Comment: Resu lts reported in D-DU ng/mL. Positive for D-dimer. A positive D-Dimer may occur in the following: DVT, PE, DIC, Trauma, Cancer, Sepsis, , Rheumatoid arthritis, Myocardial infarction and Cirrhosis. The presence of Rheumatoid Factor and HAMA (human mouse antibody) produces an overestimation of test results. The result of the D-Dimer test should be evaluated in the context of all the clinical and laboratory data available. In those instances where the laboratory result does not agree with the clinical evaluation, additional tests should be performed accordingly. If the D-Dimer result is used to exclude DVT or PE, the recommended cutoff value is less than 230 ng/mL. The D-Dimer result should not be used alone to rule in DVT/PE, but should be used in conjunction with a clinical pretest probability (PTP)assessment model to exclude venous thromboembolism (VTE) in outpatients suspected of deep venous thrombosis (DVT) and pulmonary embolism (PE). Performed By: #### C RADHA DE OLIVEIRA MDW, ANEU, DIMER, TROPHS, GFR, BMP #### [address] [address] TROPHSon 02-17-2023 Troponin I High Sensitivity 4.0 ng/L Normal 0.0-51.4 [facility] ([place]) Comment on above: Performed By: #### C RADHA DE OLIVEIRA MDW, ANEU, DIMER, TROPHS, GFR, BMP #### [address] [address] XR CHEST 1 VIEWon 02-17-2023 XR CHEST 1 VIEW ORIGINAL EXAMINATION: ONE XRAY VIEW OF THE CHEST 02/17/2023 2:31 pm COMPARISON: None. HISTORY: ORDERING SYSTEM PROVIDED HISTORY: Reason for Exam: chest pain FINDINGS: The cardiomediastinal silhouette demonstrates a normal appearance. No consolidative opacity is identified. There is no pleural effusion or pneumothorax. No free air seen beneath the level of the diaphragm. The bony thorax appears acutely intact. IMPRESSION: No evidence of an acute process. Interpreted by: Nathen Florez MD Preliminary Report By: Nathen Florez MD Electronically signed By Nathen Florez MD Dictated Date: 02/17/2023 2:52:41 PM Prelim Date: 02/17/2023 2:52:59 PM Sign Date: 02/17/2023 2:52:59 PM Ordering Provider: KRISSY Louie [facility] ([place]) Absolute lymphocyte countOrd ered By: Jaswinder Ramos on 02-11-2023 Lymphocytes Auto (Unsp spec) [#/Vol] 2.45 10*3/uL 0.83-4.51 [facility] Basophil percentageOrdered B y: Jaswinder Ramos on 02-11-2023 Basophils/100 WBC (Bld) 0.4 % 0-1 [facility] Chloride [Moles/Vol] 106 mmol/L 98-107 [facility] Eosinophils/100 WBC (Bld) 0.6 % 0-5 [facility] Glucose [Mass/Vol] 117 mg/dL 74-106 [facility] Comment on above: Fasting Glucose resu lt from 100 to 125 mg/dL suggests IMPAIRED HOMEOSTASIS per A.D.A. criteria. Neutrophils (Bld) [#/Vol] 6.6 10*3/uL 2.0-7.7 [facility] Neutrophils/100 WBC (Bld) 67.3 % 47-70 [facility] Potassium [Moles/Vol] 4.4 mmol/L 3.5-5.1 [facility] Sodium [Moles/Vol] 139 mmol/L 136-145 [facility] WBC (Bld) [#/Vol] 9.8 10*3/uL 4.4-11.0 [facility] Blood erythrocytes count (nu mber/volume)Ordered By: Jaswinder Ramos on 02-11-2023 RBC (Bld) [#/Vol] 4.33 10*6/uL 4.2-5.4 [facility] Blood hemoglobin measurement (mass/volume)Ordered By: Jaswinder Ramos on 02-11-2023 Hemoglobin (Bld) [Mass/Vol] 12.5 g/dL 12.0-15.0 [facility] Blood lymphocytes/100 leukoc ytesOrdered By: Jaswinder Ramos on 02-11-2023 Lymphocytes/100 WBC (Bld) 25.1 % 19-41 [facility] Blood monocytes/100 leukocyt esOrdered By: Jaswinder Ramos on 02-11-2023 Monocytes/100 WBC (Bld) 6.2 % 0-10 [facility] Blood platelet mean volumeOr dered By: Jaswinder Ramos on 02-11-2023 Platelet mean volume (Bld) [Entitic vol] 10.6 fL 6.2-12.0 [facility] Determination of erythrocyte mean corpuscular volume (MCV)Ordered By: Jaswinder Ramos on 02-11-2023 MCV (RBC) [Entitic vol] 91.7 fL 81-99 [facility] Hematocrit Auto (Bld) [Volum e fraction]Ordered By: Jaswinder Ramos on 02-11-2023 Hematocrit (Bld) [Volume fraction] 39.7 % 37-47 [facility] Laboratory - Chemistry and C hemistry - challengeOrdered By: Jaswinder Ramos on 02-11-2023 CO2 [Moles/Vol] 30.0 mmol/L 21.0-32.0 [facility] Urea nitrogen/Creatinine [Mass ratio] 14.1 mg/mg 10-20 [facility] - Hematology and Cell countsOrdered By: Jaswinder Ramos on 02-11-2023 Erythrocyte distribution width (RBC) [Entitic vol] 46.2 fL 35.1-43.9 [facility] Erythrocyte distribution width (RBC) [Ratio] 13.7 % 11.6-14.6 [facility] Immature granulocytes/100 WBC (Bld) 0.400 % 0.0-0.9 [facility] Comment on above: IG% - Immature Granu locytes (promyelocytes, myelocytes and metamyelocytes) > 1% indicates that a LEFT SHIFT is Present. MCH (RBC) [Entitic mass] 28.9 pg 27.0-32.0 [facility] Nucleated RBC/100 WBC (Bld) [Ratio] 0 % 0-5 [facility] MCHC Auto (RBC) [Mass/Vol]Or dered By: Jaswinder Ramos on 02-11-2023 MCHC (RBC) [Mass/Vol] 31.5 g/dL 32-36 [facility] No Panel InformationOrdered By: Jaswinder Ramos on 02-11-2023 Troponin I High Sensitivity 6 pg/mL 3.0-54.0 [facility] Comment on above: Please Note: New Estefanía t Units and Gender Specific Reference Ranges. For more information see Policy Stat Procedure [place] High Sensitivity Troponin (TNIH) and attachments. D-Dimer Quantitative (PE/DVT) 0.89 FEU/ug/m 0.27-0.49 [facility] Comment on above: D-Dimer ELEVATED (>0 .49): Additional studies and clinicalassessments are indicated to conclude diagnosis of:Deep Vein Thrombosis (DVT) or Pulmonary Embolism (PE)CRITICAL VALUE VERIFIED. CALLED TO [facility]YPCG26/03/24 7609 Hetal Reagan.RESULTS READ BACK BY SAME . Estimated GFR (MDRD) Amer 93 mL/min >60 [facility] Comment on above: GFR Calc Estimated GFR (MDRD) Non-Af Amer 77 mL/min >60 [facility] Comment on above: Non- GFR Calc Platelets bldOrdered By: Zay Ramos on 02-11-2023 Platelets (Bld) [#/Vol] 350 10*3/uL 150-450 [facility] Serum or plasma calcium ambrose urement (mass/volume)Ordered By: Jaswinder Ramos on 02-11-2023 Calcium [Mass/Vol] 9.5 mg/dL 8.5-10.1 [facility] Serum or plasma creatinine m easurement (mass/volume)Ordered By: Jaswinder Ramos on 02-11-2023 Creatinine [Mass/Vol] 0.85 mg/dL 0.55-1.02 [facility] Comment on above: The validity of the calculated GFR & GFRAA in patients over 70 years has not been determined. Clinical correlation is essential. Serum or plasma urea nitroge n measurement (mass/volume)Ordered By: Jaswinder Ramos on 02-11-2023 Urea nitrogen [Mass/Vol] 12 mg/dL 7-18 [facility] Thin prep Papanicolaou smear with manual screeningOrdered By: Jaswinder Ramos on 02-11-2023 Thin prep Papanicolaou smear with manual screening 3 5-15 [facility] Basophil percentageOrdered B y: Gustavo Luu on 01-08-2023 Chloride [Moles/Vol] 105 mmol/L 98-107 [facility] Glucose [Mass/Vol] 80 mg/dL 74-106 [facility] Potassium [Moles/Vol] 4.1 mmol/L 3.5-5.1 [facility] Sodium [Moles/Vol] 141 mmol/L 136-145 [facility] Laboratory - Chemistry and C hemistry - challengeOrdered By: Gustavo Luu on 01-08-2023 CO2 [Moles/Vol] 30.0 mmol/L 21.0-32.0 [facility] Urea nitrogen/Creatinine [Mass ratio] 13.6 mg/mg 10-20 [facility] Laboratory - Chemistry and C hemistry - challengeOrdered By: Bhavin Montalvo on 01-08-2023 Magnesium [Mass/Vol] 2.1 mg/dL 1.6-2.6 [facility] No Panel InformationOrdered By: Gustavo Luu on 01-08-2023 Estimated GFR (MDRD) Amer 89 mL/min >60 [facility] Comment on above: GFR Calc Estimated GFR (MDRD) Non-Af Amer 74 mL/min >60 [facility] Comment on above: Non- GFR Calc Serum or plasma calcium ambrose urement (mass/volume)Ordered By: Gustavo Luu on 01-08-2023 Calcium [Mass/Vol] 8.7 mg/dL 8.5-10.1 [facility] Serum or plasma creatinine m easurement (mass/volume)Ordered By: Gustavo Luu on 01-08-2023 Creatinine [Mass/Vol] 0.88 mg/dL 0.55-1.02 [facility] Comment on above: The validity of the calculated GFR & GFRAA in patients over 70 years has not been determined. Clinical correlation is essential. Serum or plasma urea nitroge n measurement (mass/volume)Ordered By: Gustavo Luu on 01-08-2023 Urea nitrogen [Mass/Vol] 12 mg/dL 7-18 [facility] Thin prep Papanicolaou smear with manual screeningOrdered By: Gustavo Luu on 01-08-2023 Thin prep Papanicolaou smear with manual screening 6 5-15 [facility] Absolute lymphocyte countOrd ered By: Dr. Multani on 06-03-2022 Lymphocytes Auto (Unsp spec) [#/Vol] 1.86 10*3/uL 0.83-4.51 [facility] Basophil percentageOrdered B y: Dr. Multani on 06-03-2022 Basophils/100 WBC (Bld) 0.4 % 0-1 [facility] Chloride [Moles/Vol] 105 mmol/L 98-107 [facility] Eosinophils/100 WBC (Bld) 0.2 % 0-5 [facility] Glucose [Mass/Vol] 106 mg/dL 74-106 [facility] Comment on above: Fasting Glucose resu lt from 100 to 125 mg/dL suggests IMPAIRED HOMEOSTASIS per A.D.A. criteria. Neutrophils (Bld) [#/Vol] 6.4 10*3/uL 2.0-7.7 [facility] Neutrophils/100 WBC (Bld) 72.5 % 47-70 [facility] Potassium [Moles/Vol] 4.3 mmol/L 3.5-5.1 [facility] Sodium [Moles/Vol] 136 mmol/L 136-145 [facility] WBC (Bld) [#/Vol] 8.9 10*3/uL 4.4-11.0 [facility] Blood erythrocytes count (nu mber/volume)Ordered By: Dr. Multani on 06-03-2022 RBC (Bld) [#/Vol] 4.75 10*6/uL 4.2-5.4 [facility] Blood hemoglobin measurement (mass/volume)Ordered By: Dr. Multani on 06-03-2022 Hemoglobin (Bld) [Mass/Vol] 13.8 g/dL 12.0-15.0 [facility] Blood lymphocytes/100 leukoc ytesOrdered By: Dr. Multani on 06-03-2022 Lymphocytes/100 WBC (Bld) 20.9 % 19-41 [facility] Blood monocytes/100 leukocyt esOrdered By: Dr. Multani on 06-03-2022 Monocytes/100 WBC (Bld) 5.7 % 0-10 [facility] Blood platelet mean volumeOr dered By: Dr. Multani on 06-03-2022 Platelet mean volume (Bld) [Entitic vol] 10.9 fL 6.2-12.0 [facility] Determination of erythrocyte mean corpuscular volume (MCV)Ordered By: Dr. Multani on 06-03-2022 MCV (RBC) [Entitic vol] 91.4 fL 81-99 [facility] Hematocrit Auto (Bld) [Volum e fraction]Ordered By: Dr. Multani on 06-03-2022 Hematocrit (Bld) [Volume fraction] 43.4 % 37-47 [facility] Laboratory - Chemistry and C hemistry - challengeOrdered By: Dr. Multani on 06-03-2022 CO2 [Moles/Vol] 29.0 mmol/L 21.0-32.0 [facility] Urea nitrogen/Creatinine [Mass ratio] 10.4 mg/mg 10-20 [facility] Laboratory - Hematology and Cell countsOrdered By: Dr. Multani on 06-03-2022 Erythrocyte distribution width (RBC) [Entitic vol] 46.5 fL 35.1-43.9 [facility] Erythrocyte distribution width (RBC) [Ratio] 13.8 % 11.6-14.6 [facility] Immature granulocytes/100 WBC (Bld) 0.300 % 0.0-0.9 [facility] Comment on above: IG% - Immature Granu locytes (promyelocytes, myelocytes and metamyelocytes) > 1% indicates that a LEFT SHIFT is Present. MCH (RBC) [Entitic mass] 29.1 pg 27.0-32.0 [facility] Nucleated RBC/100 WBC (Bld) [Ratio] 0 % 0-5 [facility] MCHC Auto (RBC) [Mass/Vol]Or dered By: Dr. Multani on 06-03-2022 MCHC (RBC) [Mass/Vol] 31.8 g/dL 32-36 [facility] No Panel InformationOrdered By: Dr. Multani on 06-03-2022 D-Dimer Quantitative (PE/DVT) 0.56 FEU/ug/m 0.27-0.49 [facility] Comment on above: D-Dimer ELEVATED (>0 .49): Additional studies and clinicalassessments are indicated to conclude diagnosis of:Deep Vein Thrombosis (DVT) or Pulmonary Embolism (PE)CRITICAL VALUE VERIFIED. CALLED TO MILANA YAÑEZ (ER)06/03/22 Ladi7 Tesfaye Puente.RESULTS READ BACK BY SAME. Estimated Creatinine Clearance Calc 72.00 ml/min [facility] Estimated GFR (MDRD) Amer 91 mL/min >60 [facility] Comment on above: GFR Calc Estimated GFR (MDRD) Non-Af Amer 75 mL/min >60 [facility] Comment on above: Non- GFR Calc Troponin I High Sensitivity 3 pg/mL 3.0-54.0 [facility] Comment on above: Please Note: New Estefanía t Units and Gender Specific Reference Ranges. For more information see Policy Stat Procedure [place] High Sensitivity Troponin (TNIH) and attachments. Platelets bldOrdered By: Dr. Multani on 06-03-2022 Platelets (Bld) [#/Vol] 353 10*3/uL 150-450 [facility] Serum or plasma calcium ambrose urement (mass/volume)Ordered By: Dr. Multani on 06-03-2022 Calcium [Mass/Vol] 9.1 mg/dL 8.5-10.1 [facility] Serum or plasma creatinine m easurement (mass/volume)Ordered By: Dr. Multani on 06-03-2022 Creatinine [Mass/Vol] 0.87 mg/dL 0.55-1.02 [facility] Comment on above: The validity of the calculated GFR & GFRAA in patients over 70 years has not been determined. Clinical correlation is essential. Serum or plasma urea nitroge n measurement (mass/volume)Ordered By: Dr. Multani on 06-03-2022 Urea nitrogen [Mass/Vol] 9 mg/dL 7-18 [facility] Thin prep Papanicolaou smear with manual screeningOrdered By: Dr. Multani on 06-03-2022 Thin prep Papanicolaou smear with manual screening 2 5-15 [facility] Vital Signs Date Time Vital Sign Value Performing Clinician Facility 02-13-2024 11:49-0500 Body mass index (BMI) [Ratio] 53.09 kg/m2 Awa Elizabeth APRN.CNP Work Phone: [facility] 02-13-2024 11:49-0500 Body temperature 98.01 [degF] Awa Elizabeth APRN.CNP Work Phone: [facility] 02-13-2024 11:49-0500 Body weight 142.8 kg Awa Elizabeth APRN.CNP Work Phone: [facility] 02-13-2024 11:49-0500 Diastolic blood pressure 76 mm[Hg] Awa Elizabeth APRN.CNP Work Phone: [facility] 02-13-2024 11:49-0500 Heart rate 103 /min Awa Praisler-Wood STREETCAR REPAIRER.CARTRIDGE GAUGER Work Phone: [facility] 02-13-2024 11:49-0500 Respiratory rate 18 /min Awa Praisler-[employer] STREET[employer] REPAIRER.CARTRIDGE GAUGER Work Phone: [facility] 02-13-2024 11:49-0500 SaO2% (BldA) [Mass fraction] 98 % Awa Praisler-[employer] STREET[employer] REPAIRER.CARTRIDGE GAUGER Work Phone: [facility] 02-13-2024 11:49-0500 Systolic blood pressure 118 mm[Hg] Awa Praisler-[employer] STREETCAR REPAIRER.CARTRIDGE GAUGER Work Phone: [facility] 02-26-2023 14:51-0500 Body temperature 97.6 [degF] No Primary Care Physician [facility] 02-26-2023 14:51-0500 Diastolic blood pressure 82 mm[Hg] No Primary Care Physician [facility] 02-26-2023 14:51-0500 Heart rate 84 /min No Primary Care Physician [facility] 02-26-2023 14:51-0500 Respiratory rate 16 /min No Primary Care Physician [facility] 02-26-2023 14:51-0500 SaO2% (BldA) [Mass fraction] 98 % No Primary Care Physician [facility] 02-26-2023 14:51-0500 Systolic blood pressure 130 mm[Hg] No Primary Care Physician [facility] 02-25-2023 15:22-0500 Body height 162.56 cm No Primary Care Physician [facility] 02-11-2023 23:00-0500 Diastolic blood pressure 72 mm[Hg] No Primary Care Physician [facility] 02-11-2023 23:00-0500 Heart rate 85 /min No Primary Care Physician [facility] 02-11-2023 23:00-0500 Respiratory rate 16 /min No Primary Care Physician [facility] 02-11-2023 23:00-0500 SaO2% (BldA) [Mass fraction] 93 % No Primary Care Physician [facility] 02-11-2023 23:00-0500 Systolic blood pressure 117 mm[Hg] No Primary Care Physician [facility] 02-11-2023 18:26-0500 Body height 162.56 cm No Primary Care Physician [facility] 02-11-2023 18:26-0500 Body temperature 97.4 [degF] No Primary Care Physician [facility] 01-12-2023 15:15-0500 Body temperature 97.7 [degF] No Primary Care Physician [facility] 01-12-2023 15:15-0500 Diastolic blood pressure 82 mm[Hg] No Primary Care Physician [facility] 01-12-2023 15:15-0500 Heart rate 103 /min No Primary Care Physician [facility] 01-12-2023 15:15-0500 Respiratory rate 16 /min No Primary Care Physician [facility] 01-12-2023 15:15-0500 SaO2% (BldA) [Mass fraction] 97 % No Primary Care Physician [facility] 01-12-2023 15:15-0500 Systolic blood pressure 132 mm[Hg] No Primary Care Physician [facility] 01-12-2023 08:51-0500 Body height 162.56 cm No Primary Care Physician [facility] 01-12-2023 08:51-0500 Body mass index (BMI) [Ratio] 53.3 kg/m2 No Primary Care Physician [facility] 01-12-2023 08:51-0500 Body weight 141 kg No Primary Care Physician [facility] 12-06-2022 18:08-0400 Body height 162.56 cm No Primary Care Physician [facility] 12-06-2022 18:08-0400 Body mass index (BMI) [Ratio] 55.6 kg/m2 No Primary Care Physician [facility] 12-06-2022 18:08-0400 Body mass index (BMI) [Ratio] 54.7 kg/m2 No Primary Care Physician [facility] 12-06-2022 18:08-0400 Body temperature 98.5 [degF] No Primary Care Physician [facility] 12-06-2022 18:08-0400 Body temperature 97.6 [degF] No Primary Care Physician [facility] 12-06-2022 18:08-0400 Body weight 147.1 kg No Primary Care Physician [facility] 12-06-2022 18:08-0400 Body weight 144.69 kg No Primary Care Physician [facility] 12-06-2022 18:08-0400 Diastolic blood pressure 99 mm[Hg] No Primary Care Physician [facility] 12-06-2022 18:08-0400 Diastolic blood pressure 78 mm[Hg] No Primary Care Physician [facility] 12-06-2022 18:08-0400 Heart rate 102 /min No Primary Care Physician [facility] 12-06-2022 18:08-0400 Heart rate 98 /min No Primary Care Physician [facility] 12-06-2022 18:08-0400 Respiratory rate 16 /min No Primary Care Physician [facility] 12-06-2022 18:08-0400 SaO2% (BldA) [Mass fraction] 99 % No Primary Care Physician [facility] 12-06-2022 18:08-0400 SaO2% (BldA) [Mass fraction] 97 % No Primary Care Physician [facility] 12-06-2022 18:08-0400 Systolic blood pressure 170 mm[Hg] No Primary Care Physician [facility] 12-06-2022 18:08-0400 Systolic blood pressure 142 mm[Hg] No Primary Care Physician [facility] 06-03-2022 15:12-0400 Body temperature 97.8 [degF] [facility] 06-03-2022 15:12-0400 Diastolic blood pressure 64 mm[Hg] [facility] 06-03-2022 15:12-0400 Heart rate 84 /min [facility] 06-03-2022 15:12-0400 Respiratory rate 16 /min [facility] 06-03-2022 15:12-0400 SaO2% (BldA) [Mass fraction] 100 % [facility] 06-03-2022 15:12-0400 Systolic blood pressure 138 mm[Hg] [facility] 06-03-2022 10:14-0400 Body height 162.56 cm [facility] 06-03-2022 10:14-0400 Body mass index (BMI) [Ratio] 55.6 kg/m2 [facility] 06-03-2022 10:14-0400 Body weight 147.1 kg [facility] 03-24-2022 10:53-0500 Body height 162.56 cm [facility] 03-24-2022 10:53-0500 Body mass index (BMI) [Ratio] 56.2 kg/m2 [facility] 03-24-2022 10:53-0500 Body temperature 96 [degF] [facility] 03-24-2022 10:53-0500 Body weight 148.77 kg [facility] 03-24-2022 10:53-0500 Diastolic blood pressure 99 mm[Hg] [facility] 03-24-2022 10:53-0500 Heart rate 97 /min [facility] 03-24-2022 10:53-0500 Respiratory rate 18 /min [facility] 03-24-2022 10:53-0500 SaO2% (BldA) [Mass fraction] 99 % [facility] 03-24-2022 10:53-0500 Systolic blood pressure 164 mm[Hg] [facility] 03-20-2022 08:01-0500 Body height 162.56 cm [facility] 03-20-2022 08:01-0500 Body mass index (BMI) [Ratio] 56.3 kg/m2 [facility] 03-20-2022 08:01-0500 Body temperature 95.6 [degF] [facility] 03-20-2022 08:01-0500 Body weight 148.82 kg [facility] 03-20-2022 08:01-0500 Diastolic blood pressure 92 mm[Hg] [facility] 03-20-2022 08:01-0500 Heart rate 108 /min [facility] 03-20-2022 08:01-0500 Respiratory rate 16 /min [facility] 03-20-2022 08:01-0500 SaO2% (BldA) [Mass fraction] 99 % [facility] 03-20-2022 08:01-0500 Systolic blood pressure 141 mm[Hg] [facility] Encounters Encounter Date Encounter Type Care Provider Facility Start: 12-14-2024 End: 12-14-2024 ambulatory NONE PHYSICIAN Facility[facility] Start: 12-14-2024 End: 12-14-2024 Patient encounter procedure TERRA QUISPE ME [facility] Start: 02-13-2024 End: 02-13-2024 ambulatory Facility:[facility] Start: 02-13-2024 End: 02-13-2024 Patient encounter procedure Awa Elizabeth APRN.CNP Work Phone: [facility] Comment on above: Sore throat (Primary Dx); Post-nasal drainage; Viral URI Start: 02-05-2024 Encounter for genera l adult medical examination without abnormal findings [facility] Start: 01-21-2024 ambulatory [facility] Fa cility:[facility] Start: 01-21-2024 End: 01-21-2024 ambulatory [facility] Facility:[facility] Start: 01-07-2024 End: 01-07-2024 Emergency department patient visit [facility] Facility:[facility] Start: 01-07-2024 End: 01-07-2024 ambulatory [facility] Facility:[facility] Start: 11-18-2023 ambulatory Aide Yana Facility :[facility] Start: 10-02-2023 End: 10-02-2023 ambulatory Aide Yana [facility] Start: 06-05-2023 End: 06-05-2023 ambulatory Bhavin Montalvo Facility:[facility] Start: 04-13-2023 Registered Recurring No Primar y Care Physician [facility]-Physical Therapy Work Phone: Start: 04-13-2023 ambulatory Aide Yana Facility :[facility] Start: 04-13-2023 Non-patient / Non-visit No [facility] Physician [facility] Start: 04-13-2023 End: 04-13-2023 ambulatory No Primary Care Physician [facility] Work Phone: Start: 04-13-2023 End: 04-13-2023 Patient encounter procedure No Primary Care Physician [facility]-Cardiovascular Services Work Phone: Start: 04-13-2023 End: 04-13-2023 ambulatory Aide Yana Facility:[facility] Start: 02-26-2023 End: 02-26-2023 Patient encounter procedure No Primary Care Physician [facility] Work Phone: Start: 02-17-2023 End: 02-17-2023 Emergency department patient visit LC LUNA DO Facility:[facility] Start: 02-11-2023 End: 02-11-2023 Emergency department patient visit No Primary Care Physician [facility]Emergency Department Work Phone: Start: 01-12-2023 End: 01-12-2023 Admission to same day surgery center No Primary Care Physician [facility] Start: 01-12-2023 End: 01-12-2023 ambulatory No Primary Care Physician [facility] Work Phone: Start: 12-22-2022 End: 12-22-2022 ambulatory No Primary Care Physician [facility] Work Phone: Start: 12-22-2022 End: 12-22-2022 Patient encounter procedure No Primary Care Physician [facility] Work Phone: Start: 12-10-2022 End: 12-10-2022 Patient encounter procedure No Primary Care Physician [facility] Work Phone: Start: 12-06-2022 End: 12-06-2022 Emergency department patient visit No Primary Care Physician [facility]Emer[facility] Work Phone: Start: 11-04-2022 End: 11-04-2022 Patient encounter procedure No Primary Care Physician [facility] Work Phone: Start: 09-30-2022 End: 09-30-2022 Patient encounter procedure No Primary Care Physician [facility] Work Phone: Start: 09-11-2022 End: 09-11-2022 Patient encounter procedure No Primary Care Physician [facility] Work Phone: Start: 09-05-2022 End: 09-05-2022 Patient encounter procedure No Primary Care Physician [facility] Work Phone: Start: 09-03-2022 End: 09-03-2022 Patient encounter procedure No Primary Care Physician [facility] Work Phone: Start: 06-03-2022 End: 06-03-2022 Emergency department patient visit [facility]gency [facility] Start: 03-24-2022 End: 03-24-2022 Emergency department patient visit [facility] Start: 03-20-2022 End: 03-20-2022 [facility] Start: 02-21-2022 Telephone encounter M Srikanth Mullen PA-C Work Phone: [facility] [place] Comment on above: Forms Procedures Date Procedure Procedure Detail Performing Clinician Start: 02-13-2024 STREP A MOLECULAR (POC) Awa Elizabeth APRN.CNP Work Phone: Start: 04-13-2023 Cardiovascular stres s test using pharmacologic stress agent No Primary Care Physician Start: 02-11-2023 CT angiography of ch est with contrast No Primary Care Physician Start: 02-11-2023 Plain chest X-ray No Pr imary Care Physician Start: 01-12-2023 Fluoroscopic guidance N o Primary Care Physician Start: 01-12-2023 Radiography of ankle No Primary Care Physician Start: 01-12-2023 Open reduction with internal fixation No Primary Care Physician Start: 12-22-2022 MRI of lower extremity No Primary Care Physician Start: 12-06-2022 Radiography of ankle No Primary Care Physician Start: 06-03-2022 CT angiography of ch est with contrast Start: 06-03-2022 Plain chest X-ray Start: 03-24-2022 X-ray of both feet Start: 09-14-2020 Mammography ANALILIA Mlulen PA-C Work Phone: Ankle region structu re (body structure) TERRA QUISPE [facility] Gallbladder structur e (body structure) TERRA QUISPE DC Ligation of fallopian tube J OHN JOSE ENRIQUE TAVERA Tonsillectomy TERRA QUISPE DC Wrist region structu re (body structure) TERRA QUISPE DC Plan of Treatment Date Care Activity Detail Author Start: 03-20-2032 Urine microalbumin profile DTaP,Tdap,Td Vaccine (3 - Td or Tdap) [facility] Start: 09-14-2025 HPV TESTING HPV TESTING [facility] Start: 09-14-2025 PAP TESTING PAP TESTING [facility] Start: 09-14-2025 Screening for malignant neoplasm of cervix Cervical Cancer Screening [facility] Start: 10-11-2023 Covid-19 Vaccine () Covid-19 Vaccine () [facility] Start: 10-11-2023 Influenza vaccination Influenza Vaccine (#1) [facility] Start: 08-22-2023 Diabetes Screening Diabetes Screening [facility] Start: 08-22-2023 Lipid panel Lipid Screening [facility] Start: 08-22-2023 Screening for malignant neoplasm of colon [facility] Start: 02-11-2023 End: 02-11-2023 [facility] Start: 01-12-2023 Anesthesia closed proc lower leg ankle & foot ANESTH LOWER LEG PROCEDURE [facility] Start: 01-12-2023 Injection aa&/strd sciatic nerve NJX AA&/STRD SCIATIC NRV IMG [facility] Start: 01-12-2023 Open treatment proximal fibula/shaft fracture TREATMENT OF FIBULA FRACTURE [facility] Start: 01-12-2023 Open tx distal tibiofibular joint disruption TREAT LOWER LEG JOINT [facility] Start: 01-12-2023 Patient discharge [facility] Start: 12-06-2022 [facility] Start: 12-06-2022 Application short leg splint calf foot APPLICATION LOWER LEG SPLINT [facility] Start: 12-02-2022 Hepatitis B Vaccine (2 of 3 - 19+ 3-dose series) Hepatitis B Vaccine (2 of 3 - 19+ 3-dose series) [facility] Start: 06-03-2022 [facility] Start: 03-24-2022 X-ray of both feet Foot min 3 Views [facility] Start: 03-24-2022 XR Foot GE 3 Views [facility] Start: 03-20-2022 Drainage finger abscess simple DRAINAGE OF FINGER ABSCESS [facility] Start: 10-10-2021 Influenza vaccination INFLUENZA (#1) [facility] Start: 09-14-2021 Mammography MAMMOGRAM [facility] Start: 09-14-2021 Screening for malignant neoplasm of breast Mammogram Screening [facility] Start: 05-16-2020 COVID-19 VACCINE (3 - Booster for Moderna series) COVID-19 VACCINE (3 - Booster for Moderna series) [facility] Start: 1997 Pneumococcal vaccination Pneumococcal Vaccine (1 of 2 - PCV) [facility] Start: 1997 Urine microalbumin profile DTAP,TDAP,TD (1 - Tdap) [facility] Start: 1996 HEPATITIS C SCREENING HEPATITIS C SCREENING [facility] Start: 1996 Hepatitis C screening Hepatitis C Screening [facility] Start: 1996 HIV SCREENING HIV SCREENING [facility] Start: 1996 HIV screening HIV Screening [facility] Start: 1984 PNEUMOCOCCAL (1 - PCV) PNEUMOCOCCAL (1 - PCV) [facility] Start: 1978 HEPATITIS B (1 of 3 - 3-dose series) HEPATITIS B (1 of 3 - 3-dose series) [facility] MG Breast - bilatera l Screening [facility] Patient Education [facility] Work Phone: Patient referral [facility] Work Phone: Tobacco use cessatio n education [facility] Tobacco use cessatio n education [facility] Immunizations Immunization Date Immunization Notes Care Provider Fa cility 12-10-2022 influenza, injectabl e, quadrivalent, preservative free No Primary Care Physician [facility] 12-10-2022 influenza virus vaccine, unspecified formulation Awa Elizabeth APRN.CNP Work Phone: [facility] 11-04-2022 hepatitis B vaccine, adult dosage No Primary Care Physician [facility] 03-20-2022 tetanus toxoid, redu anne-marie diphtheria toxoid, and acellular pertussis vaccine, adsorbed [facility] 04-25-2020 tetanus toxoid, redu anne-marie diphtheria toxoid, and acellular pertussis vaccine, adsorbed [facility] 03-21-2020 Covid (Moderna) No Primary C are Physician [facility] 02-22-2020 Covid ([facility]) No Primary C are Physician [facility] Payers Date Payer Category Payer Self-pay [id number] 2023 Unknown [id number] 2022 Unknown [id number] 2022 Medicaid [id number] 2009 Unknown [id number] 2005 Medicaid [id number] 1978 Unknown [id number] 2.16.8 [id number] 1978 Unknown [id number] 2.16. [id number] Unknown [id number] 2.16.8 [id number] Unknown [id number] 2.16.8 [id number] Unknown [id number] 2.16.8 [id number] Unknown [id number] 2.16.8 [id number] Unknown [id number] 2.16.8 [id number] Unknown [id number] 2.16.8 [id number] Unknown [id number] 2.16.8 [id number] Unknown [id number] 2.16.8 [id number] Unknown [id number] 2.16.8 [id number] Social History Date Type Detail Facility Start: 03-12-2018 Tobacco smoking stat us NHIS Smokes tobacco daily [facility] History of tobacco use Cigarette Smoker [facility] Start: 03-12-2018 End: 01-15-2020 Cigarettes smoked current (pack per day) - Reported 1 [facility] Start: 03-12-2018 Tobacco use and exposure Smokeless tobacco non-user [facility] Start: 09-14-2020 End: 02-13-2024 Alcohol intake Current non-drinker of alcohol (finding) [facility] Start: 1980 Sex Assigned At Not on file [facility] Start: 03-20-2022 End: 02-25-2023 Tobacco smoking status NHIS Unknown if ever smoked [facility] Start: 04-24-2020 None [facility] Start: 04-24-2020 Spouse/ Signif icant Other [facility] Start: 1980 Sex Assigned At Female [facility] Start: 01-15-2020 End: 02-13-2024 Tobacco use panel [facility] Adult Depression Screening Assessment 0 [facility] Start: 02-17-2023 Tobacco smoking status Ex-smoker (fi nding) [facility] Sexual Orientation [facility] Start: 03-20-2005 Sex Female (finding) [facility] NEGATED: Highlighted row [facility] Medical Equipment Procedure Code Equipment Code Equipment Origin al Text Equipment Identifier Dates ORIF, ankle 3.5MM NON-LOCKIN G SCREW FDA Start: 01-12-2023 ORIF, ankle ([id number]) [id number] FDA Start: 01-12-2023 ORIF, ankle ([id number]) [id number] FDA Start: 01-12-2023 ORIF, ankle ([id number]) ()[id number] FDA Start: 01-12-2023 ORIF, ankle Internal orthopa edic fixation system, plate/screw, non-bioabsorbable, sterile [id number] FDA Start: 01-12-2023 ORIF, ankle [id number] FDA Start: 01-12-2023 ORIF, ankle ([id number]) ()[id number] FDA Start: 01-12-2023 ORIF, ankle 3.5MM NON-LOCKIN G SCREW FDA Start: 01-12-2023 Goals Date Patient Goal Desired Activity /State Mental Status Date Assessment Result Facility 01-12-2023 Cognitive function Voice/Name;Touch/Shaki ng [facility] Work Phone: 06-03-2022 Cognitive function Voice/Name [facility] Work Phone: Clinical Notes 06-04-2009 to 02-13-2024 Patient InstructionsAwa Elizabeth APRN.[facility] - 02/13/2024 12:23 PM EST Note Date & Type Note Facility 02-13-2024 Instructions Awa Elizabeth APRN.[facility] - 02/13/2024 12:26 PM EST ASSESSMENT/PLAN: 1. Sore throat - ICD9: 462, ICD10: J02.9 (primary diagnosis) - suspect viral - Group A strep molecular testing negative - Discussed supportive care treatment with fluids, rest and analgesia. - STREP A MOLECULAR (POC) 2. Post-nasal drainage - ICD9: 473.9, ICD10: R09.82 - FLUTICASONE PROPIONATE 50 MCG/ACTUATION NASAL SPRAY,SUSPENSION 3. Viral URI - ICD9: 465.9, ICD10: J06.9 - Discussed viral etiology and rationale for treatment. - Symptomatic treatment with prn analgesia - Supportive care with fluids and rest - offered COVID/flu/RSV testing-patient declined. - Follow-up with your PCP in 3-5 days if symptoms have not improved or sooner if symptoms worsen - Discussed red flags and need for immediate medical evaluation if any occur. - Discussed supportive care treatment with fluids, rest and analgesia. - Discussed expected course of illness Awa Elizabeth APRN.CARTRIDGE GAUGER documented in this encounter [facility] 02-13-2024 Note HNO ID: [id number] Author: AWA ELIZABETH APRN.STEPHON Service: ? Author Type: Nurse Practitioner Type: Progress Notes Filed: 02/13/2024 12:26 Note Text: Subjective Sore Throat Associated symptoms include congestion and coughing. Pertinent negatives include no diarrhea, ear pain or vomiting. Estrellita Brown is a 43 year old female who presents with chest congestion and scratchy throat, raspy voice since last night. She has not had a fever. She has a productive cough this morning. No fever. Daughter is currently sick with URI symptoms. She has not taken any medication today. Review of Systems Constitutional: Negative for chills, fever and malaise/fatigue. HENT: Positive for congestion and sore throat. Negative for ear pain. Respiratory: Positive for cough and sputum production. Cardiovascular: Negative. Gastrointestinal: Negative for diarrhea, nausea and vomiting. BP 118/76 Pulse 103 Temp 36.7 ?C (98 ?F) (Tympanic) Resp 18 Wt (!) 142.8 kg (314 lb 13.1 oz) LMP 09/10/2020 (Exact Date) SpO2 98% BMI 53.09 kg/m? PAST MEDICAL HISTORY Diagnosis Date Acid reflux Anemia 2004 after natural childbirth Cholelithiasis 2009 Cholelithiasis 06/04/2009 Chronic cholecystitis 06/04/2009 Chronic cholecystitis 06/04/2009 Depression PIPE (obstructive sleep apnea) [facility] PAST SURGICAL HISTORY Procedure Laterality Date CURETTAGE 2004 also had blood transfusion LAPS SURG CHOLECYSTECTOMY W/CHOLANGIOGRAPHY 06/28/2009 Left thumb and wrist 1987? ligaments fixed after cut self with knife TONSILLECTOMY PRIMARY/SECONDARY AGE 10/> 1991? TUBAL LIGATION, 2006 ALLERGIES Penicillins MEDICATIONS CPAP Initiate Auto PAP @ 5-20 cm of water with humidification. Mask (per patient preference) optional chin strap (if indicated) , filters, tubing, humidifier and lifetime supplies. lamoTRIgine (LAMICTAL) 200 mg tablet Take 200 mg by mouth once daily. venlafaxine ER (EFFEXOR XR) 150 mg 24 hr capsule Take 150 mg by mouth once daily. LORazepam (ATIVAN) 0.5 mg tab FAMILY HISTORY Problem Relation Age of Onset Diabetes Maternal Aunt Diabetes Maternal Uncle other (Other: complication from surgery) Mother No Known Problems Father other (Other 23 aunts and uncles maternal) Other Pancreatic Cancer Maternal Uncle Social History Tobacco Use Smoking status: Every Day Current packs/day: 1.00 Types: Cigarettes Smokeless tobacco: Never Vaping Use Vaping status: Never Used Substance Use Topics Alcohol use: No Drug use: No Objective Physical Exam Vitals and nursing note reviewed. Constitutional: General: She is not in acute distress. Appearance: Normal appearance. She is not ill-appearing. HENT: Right Ear: Tympanic membrane, ear canal and external ear normal. Left Ear: Tympanic membrane, ear canal and external ear normal. Nose: Nose normal. Mouth/Throat: Mouth: Mucous membranes are moist. Pharynx: Uvula midline. Posterior oropharyngeal erythema present. No oropharyngeal exudate. Cardiovascular: Rate and Rhythm: Normal rate and regular rhythm. Heart sounds: Normal heart sounds. Pulmonary: Effort: Pulmonary effort is normal. No respiratory distress. Breath sounds: Normal breath sounds. No wheezing or rales. Musculoskeletal: Cervical back: Neck supple. Lymphadenopathy: Cervical: No cervical adenopathy. Skin: General: Skin is warm and dry. Findings: No erythema or rash. Neurological: Mental Status: She is alert. ASSESSMENT/PLAN: 1. Sore throat - ICD9: 462, ICD10: J02.9 (primary diagnosis) - suspect viral - Group A strep molecular testing negative - Discussed supportive care treatment with fluids, rest and analgesia. - STREP A MOLECULAR (POC) 2. Post-nasal drainage - ICD9: 473.9, ICD10: R09.82 - FLUTICASONE PROPIONATE 50 MCG/ACTUATION NASAL SPRAY,SUSPENSION 3. Viral URI - ICD9: 465.9, ICD10: J06.9 - Discussed viral etiology and rationale for treatment. - Symptomatic treatment with prn analgesia - Supportive care with fluids and rest - offered COVID/flu/RSV testing-patient declined. - Follow-up with your PCP in 3-5 days if symptoms have not improved or sooner if symptoms worsen - Discussed red flags and need for immediate medical evaluation if any occur. - Discussed supportive care treatment with fluids, rest and analgesia. - Discussed expected course of illness Awa Praisler-Wood, STREET[employer] REPAIRER.[facility] 02-13-2024 History of Presen t illness Narrative Subjective Sore Throat Associated symptoms include congestion and coughing. Pertinent negatives include no diarrhea, ear pain or vomiting. Estrellita Brown is a 43 year old female who presents with chest congestion and scratchy throat, raspy voice since last night. She has not had a fever. She has a productive cough this morning. No fever. Daughter is currently sick with URI symptoms. She has not taken any medication today. Review of Systems Constitutional: Negative for chills, fever and malaise/fatigue. HENT: Positive for congestion and sore throat. Negative for ear pain. Respiratory: Positive for cough and sputum production. Cardiovascular: Negative. Gastrointestinal: Negative for diarrhea, nausea and vomiting. BP 118/76 Pulse 103 Temp 36.7 C (98 F) (Tympanic) Resp 18 Wt (!) 142.8 kg (314 lb 13.1 oz) LMP 09/10/2020 (Exact Date) SpO2 98% BMI 53.09 kg/m PAST MEDICAL HISTORY Diagnosis Date Acid reflux Anemia 2005 after natural childbirth Cholelithiasis 2009 Cholelithiasis 06/04/2009 Chronic cholecystitis 06/04/2009 Chronic cholecystitis 06/04/2009 Depression PIPE (obstructive sleep apnea) DME [facility] [place] PAST SURGICAL HISTORY Procedure Laterality Date CURETTAGE 2004 also had blood transfusion LAPS SURG CHOLECYSTECTOMY W/CHOLANGIOGRAPHY 06/28/2009 Left thumb and wrist 1987? ligaments fixed after cut self with knife TONSILLECTOMY PRIMARY/SECONDARY AGE 10/> 1991? TUBAL LIGATION, 2006 ALLERGIES Penicillins MEDICATIONS CPAP Initiate Auto PAP @ 5-20 cm of water with humidification. Mask (per patient preference) optional chin strap (if indicated) , filters, tubing, humidifier and lifetime supplies. lamoTRIgine (LAMICTAL) 200 mg tablet Take 200 mg by mouth once daily. venlafaxine ER (EFFEXOR XR) 150 mg 24 hr capsule Take 150 mg by mouth once daily. LORazepam (ATIVAN) 0.5 mg tab FAMILY HISTORY Problem Relation Age of Onset Diabetes Maternal Aunt Diabetes Maternal Uncle other (Other: complication from surgery) Mother No Known Problems Father other (Other 23 aunts and uncles maternal) Other Pancreatic Cancer Maternal Uncle Social History Tobacco Use Smoking status: Every Day Current packs/day: 1.00 Types: Cigarettes Smokeless tobacco: Never Vaping Use Vaping status: Never Used Substance Use Topics Alcohol use: No Drug use: No Objective Physical Exam Vitals and nursing note reviewed. Constitutional: General: She is not in acute distress. Appearance: Normal appearance. She is not ill-appearing. HENT: Right Ear: Tympanic membrane, ear canal and external ear normal. Left Ear: Tympanic membrane, ear canal and external ear normal. Nose: Nose normal. Mouth/Throat: Mouth: Mucous membranes are moist. Pharynx: Uvula midline. Posterior oropharyngeal erythema present. No oropharyngeal exudate. Cardiovascular: Rate and Rhythm: Normal rate and regular rhythm. Heart sounds: Normal heart sounds. Pulmonary: Effort: Pulmonary effort is normal. No respiratory distress. Breath sounds: Normal breath sounds. No wheezing or rales. Musculoskeletal: Cervical back: Neck supple. Lymphadenopathy: Cervical: No cervical adenopathy. Skin: General: Skin is warm and dry. Findings: No erythema or rash. Neurological: Mental Status: She is alert. ASSESSMENT/PLAN: 1. Sore throat - ICD9: 462, ICD10: J02.9 (primary diagnosis) - suspect viral - Group A strep molecular testing negative - Discussed supportive care treatment with fluids, rest and analgesia. - STREP A MOLECULAR (POC) 2. Post-nasal drainage - ICD9: 473.9, ICD10: R09.82 - FLUTICASONE PROPIONATE 50 MCG/ACTUATION NASAL SPRAY,SUSPENSION 3. Viral URI - ICD9: 465.9, ICD10: J06.9 - Discussed viral etiology and rationale for treatment. - Symptomatic treatment with prn analgesia - Supportive care with fluids and rest - offered COVID/flu/RSV testing-patient declined. - Follow-up with your PCP in 3-5 days if symptoms have not improved or sooner if symptoms worsen - Discussed red flags and need for immediate medical evaluation if any occur. - Discussed supportive care treatment with fluids, rest and analgesia. - Discussed expected course of illness Awa Elizabeth APRN.[employer]GER documented in this encounter [facility] 02-11-2023 Discharge summary Note Date/Time February 11, 2023 9:10pm [facility] Medical Records Department [address] [place] [address] Emergency Department Summary 02/11/23 MR#: [id number] Acct: [id number] Name: ESTRELLITA BROWN Rep #:[id number] : 1980 42 From: Jaswinder Ramos DO PCP: Care Physician,No Primary Status :REG ER Location: ED HPI History of Present Illness Chief Complaint: Shortness of Breath Narrative Narrative: Presenting with chest pain and shortness of breath. Patient states the onset ofthis was today about 8 hours ago. She describes the pain as sharp. Patient states she has anxiety and felt like this was what was happening and took 0.5 mgof Ativan and states it did not help her symptoms when usually would. Patient states she has intermittent sharp chest pain which is something she has when shehas anxiety. She denies history of cardiac disease. No history of DVT/PE in the past but does have recent surgery in early January for fracture. By Dr. Montalvo. Patient has not had fever, chills, cough. No body aches, myalgias. Patient states he is otherwise been healthy. [facility] Medical History Anxiety CPAP (continuous positive airway pressure) dependence Depression Gallstones Heartburn High cholesterol History of blood transfusion PONV (postoperative nausea and vomiting) Restless legs Shortness of breath on exertion Sleep apnea Smoker Wears glasses Home Medications lamotrigine 200 mg tablet 200 mg PO DAILY 12/10/22 [History Last Taken 01/12/23] lorazepam 0.5 mg tablet 0.5 mg PO DAILY PRN anxiety 12/10/22 [History Last Taken 01/12/23 06:00] venlafaxine 150 mg capsule,extended release 24 hr 150 mg PO DAILY 12/10/22 [History Last Taken 01/12/23] ascorbic acid (vitamin C) 1,000 mg tablet (Vitamin C) 1 g PO DAILY 90 days #90 tabs 01/12/23 [Rx Last Taken Unknown] aspirin 81 mg tablet,delayed release 81 mg PO BID 30 days #60 tabs 01/12/23 [Rx Last Taken Unknown] calcium carbonate 500 mg-vitamin D3 15 mcg (600 unit) tablet (Os-Chai 500 + D3) 1tab PO DAILY 90 days #90 tabs 01/12/23 [Rx Last Taken Unknown] cyclobenzaprine 10 mg tablet 10 mg PO TID 7 days #21 tabs 01/12/23 [Rx Last Taken Unknown] docusate sodium 100 mg capsule (Colace) 100 mg PO DAILY 10 days #10 caps 01/12/23 [Rx Last Taken Unknown] nicotine 21 mg/24 hr daily transdermal patch 1 patch transdermal DAILY #28 ea 01/12/23 [Rx Last Taken Unknown] oxycodone-acetaminophen 5 mg-325 mg tablet (Percocet) 1 tab PO Q6H PRN pain 7 days #28 tabs 01/12/23 [Rx Last Taken Unknown] Allergy/AdvReac Type Severity Reaction Status Date / Time Penicillins Allergy Mild Itching Verified 02/11/23 18:26 Family History Mother Surgical complication passed after gastric bypass Thyroid disorder Aunt Diabetes Uncle Diabetes Other Depression Surgical History H/O wrist surgery History of cholecystectomy Hx of dilation and curettage Hx of tonsillectomy Hx of tubal ligation Social History household members: significant other and children number of children: 2 current occupational status: employed current occupation: [employer] Smoking Status: Current every day smoker tobacco type: cigarettes and e-cigarettes Electronic Cigarette Use: not used alcohol intake: never substance use type: does not use do you feel safe at home: Yes ROS ROS ED Constitutional Constitutional ED: Denies chills, fever(s) or sweats Eyes Eyes: Denies blurry vision or change in vision ENT ENT ED: Denies ear pain or sore throat Cardiovascular Cardiovascular: Reports chest pain and palpitations; Denies racing heartbeat Respiratory/Chest Respiratory/Chest: Reports dyspnea; Denies cough or sputum Gastrointestinal Gastrointestinal: Denies abdominal pain, constipation, diarrhea, nausea or vomiting Genitourinary Genitourinary ED: Denies dysuria, hematuria or urinary frequency Musculoskeletal Musculoskeletal: Denies arthralgias, myalgias or neck pain Integumentary Denies abscess, Abrasions or rash Neurologic Neurologic: Denies headache(s), paresthesias or weakness Psychiatric Psychiatric: Reports anxiety; Denies depression, suicidal ideation or suicidal thoughts Endocrine Endocrinology: Denies polydipsia or polyuria EXAM Physical Exam Const Vital Signs: 02/11/23 18:26 02/11/23 19:46 02/11/23 19:46 Temperature 97.4 F L Temperature Source Temporal Pulse Rate 105 H 89 Respiratory Rate 18 16 Respiratory Effort Respiratory Pattern Blood Pressure 178/110 H 119/71 Blood Pressure Mean 132 87 Pulse Ox 100 95 95 Oxygen Delivery Method Room Air Room Air Room Air 02/11/23 19:46 02/11/23 20:25 02/11/23 22:00 Temperature Temperature Source Pulse Rate 86 86 Respiratory Rate 16 13 Respiratory Effort Short of Breath Respiratory Pattern Tachypnea Blood Pressure 140/77 H Blood Pressure Mean 98 Pulse Ox 94 93 Oxygen Delivery Method Room Air Room Air Room Air Positive well nourished HEENT Reports moist mucous membranes atraumatic and trauma Eyes PERRL MDM MDM MDM Narrative Medical decision making narrative: Patient presenting with chest pain, anxiety, shortness of breath. Patient also has recent history of left foot surgery/tibial surgery. Differential includes ACS, PE, pneumonia, dehydration, anemia, electrolyte normalities, anxiety. CBC was obtained to assess white blood cell count, hemoglobin, platelets. BMP to assess renal function, electrolytes, glucose. High-sensitivity troponin EKG to assess for ischemia/dysrhythmia. Chest x-ray to rule out pneumonia. D-dimer will be obtained to rule out PE. CT shows no leukocytosis. Hemoglobin hematocrit are stable. Platelets are normal. Renal function electrolytes within normal limits. High-sensitivity opponent is 5. EKG on my interpretationshows normal sinus rhythm with ventricular to 106 bpm outside of ischemic changeor ectopy. Chest x-ray my interpretation shows no acute process. High-sensitivity troponin is 5. Given that the patient has pain all day I do not believe she is a delta troponin. Since her D-dimer was elevated she had a CTA of the chest which was negative. Patient counseled on findings. I feel she stable for discharge. Return precautions discussed. Impression: 1. Anxiety 2. Chest pain Lab Data Labs: Laboratory Results - last 24 hr 02/11/23 20:25 WBC 9.8 RBC 4.33 Hgb 12.5 Hct 39.7 MCV 91.7 MCH 28.9 MCHC 31.5 L RDW Std Deviation 46.2 H RDW Coeff of Tom 13.7 Plt Count 350 MPV 10.6 Immature Gran % (Auto) 0.400 Neut % (Auto) 67.3 Lymph % (Auto) 25.1 [place] % (Auto) 6.2 Eos % (Auto) 0.6 Baso % (Auto) 0.4 Absolute Neuts (auto) 6.6 Absolute Lymphs (auto) 2.45 Nucleated RBC % 0 D-Dimer Quant (PE/DVT) 0.89 H* Sodium 139 Potassium 4.4 Chloride 106 Carbon Dioxide 30.0 Anion Gap 3 L BUN 12 Creatinine 0.85 Est GFR (MDRD) Af Amer 93 Est GFR (MDRD) Non-Af 77 BUN/Creatinine Ratio 14.1 Glucose 117 H Calcium 9.5 Troponin I High Sens 5 Radiography Diagnostic Testing: Clinical Impression(s) from Imaging Studies Chest X-Ray 02/11/23 19:48 IMPRESSION: Normal x-ray examination of the chest. Electronically Signed: Prabhakar Ho MD at 20:35 EST Reading Location ID and State: [place] / [employer] , Service support , Chest CTA 02/11/23 21:48 IMPRESSION: Normal CTA chest examination, without a demonstrated pulmonary embolism or arterial dissection. Electronically Signed: Prabhakra Ho MD at 22:54 EST Reading Location ID and State: [id number] / [employer] , Service support , Discharge Plan Triage Chief Complaint: Shortness of Breath ED Provider: Jaswinder Ramos Dx/Rx/DC Orders Instructions: ED Chest Pain, Uncertain Cause Prescriptions: No Action lamotrigine 200 mg tablet 200 mg PO DAILY lorazepam 0.5 mg tablet 0.5 mg PO DAILY PRN (Reason: anxiety) venlafaxine 150 mg capsule,extended release 24hr 150 mg PO DAILY oxycodone-acetaminophen [Percocet] 5-325 mg tablet 1 tab PO Q6H PRN (Reason: pain) 7 Days Qty: 28 0RF cyclobenzaprine 10 mg tablet 10 mg PO TID 7 Days Qty: 21 0RF docusate sodium [Colace] 100 mg capsule 100 mg PO DAILY 10 Days Qty: 10 0RF aspirin 81 mg tablet,delayed release (DR/EC) 81 mg PO BID 30 Days Qty: 60 0RF ascorbic acid (vitamin C) [Vitamin C] 1,000 mg tablet 1 g PO DAILY 90 Days Qty: 90 0RF calcium carbonate-vitamin D3 [Os-Chai 500 + D3] 500 mg-15 mcg (600 unit) tablet 1 tab PO DAILY 90 Days Qty: 90 0RF nicotine 21 mg/24 hr patch 24 hour 1 patch transdermal DAILY Qty: 28 1RF Primary Care Provider: Care Physician,No Primary Referrals: Care Physician,No Primary [Primary Care Provider] - Disposition Disposition: Home, Self Care What to do if you have Problems For any increased pain, shortness of breath, bleeding, nausea or vomiting, chestpain, or any unexpected problems, contact your Primary Care Provider. Call [facility] ([phone]) or report to the closest Emergency Room. Call 911 if necessary. 02/11/232302 <Electronically signed by Jaswinder Ramos DO> Cosigner Signature (if applicable): CC: No Primary Care Physician ~ Signed [facility] Work Phone: [phone] Miscellaneous Notes* Telephone Encounter - Trish Le LPN - 02/21/2022 10:11 AM EST Patient has been identified by name and date of : Yes, Provider [place] Date 02/21/22 Type of form: [facility] [place] CPAP supplies Form received via: Fax When form is completed, fax form to fax number provided. Form has been forwarded to: back to [facility] [place] patient needs appointment to have form completed. No visit here since 2019. [facility] Le LPN [facility] of Past illness Narrative* Problem Noted Date Resolved Date Cholelithiasis 06/04/2009 12/13/2018 Chronic cholecystitis 06/04/2009 12/13/2018 documented as of this encounter (statuses as of 02/24/2022) [facility] March 20, 2022 3:11pm Note Date/Time March 20, 2022 9 :36am [facility] Medical Records Department [address] [place] [address] Emergency Department Summary 03/20/22 MR#: [id number] Acct: [id number] Name: ESTRELLITA BROWN Rep #:[id number] : 1980 41 From: Gustavo Shah PCP: Care Physician,No Primary Status :DEP ER Location: ED HPI History of Present Illness Chief Complaint: Cellulitis Informant: patient Onset/Context/Timing Onset: Days (5) Context: Gradual Onset Timing: Continuous Quality: Pressure, dull Location: Distal phalanx right index finger Worsened by: Palpation Relieved by: Nothing Narrative Narrative: Patient presents with redness and swelling to her distal phalanx of her right index finger that has been getting worse over the last 5 days. Patient states has been constant. Patient states it is gradually getting worse. Patient states that she noted some swollen lymph nodes in her right axilla today. Patient admits to some tingling over the tip of her finger. Patient denies any weakness. Patient states her pain is worse whenever she touches it or bumps it on anything. Patient denies any discharge or drainage. Patient denies any fevers or chills. [facility] Medical History Anxiety Depression Home Medications venlafaxine 25 mg tablet 150 mg PO DAILY 07/18/13 [History Last Taken Unknown] dicyclomine 10 mg capsule 10 mg PO TID PRN abd pain #14 caps 08/12/20 [Rx Last Taken Unknown] ondansetron 4 mg disintegrating tablet 4 mg PO Q8H PRN nausea and vomiting #10 tabs 08/12/20 [Rx Last Taken Unknown] hydrocodone-acetaminophen 5-325mg 5mg-325mg 1 tab PO Q8H PRN PRN Pain 2 days #6 TABLETS 04/14/21 [Rx Last Taken Unknown] clindamycin HCl 150 mg capsule 450 mg PO TID 10 days #90 CAPSULES 03/20/22 [Rx Last Taken Unknown] Allergy/AdvReac Type Severity Reaction Status Date / Time Penicillins Allergy Mild Itching Verified 03/20/22 08:00 Surgical History History of cholecystectomy Hx of dilation and curettage Hx of tonsillectomy Hx of tubal ligation Social History Smoking Status: Current every day smoker tobacco type: cigarettes ROS ROS ED Constitutional Constitutional ED: Denies chills or fever(s) Eyes Eyes: Denies blurry vision or change in vision ENT ENT ED: Denies rhinorrhea or sore throat Cardiovascular Cardiovascular: Denies chest pain or palpitations Respiratory/Chest Respiratory/Chest: Denies cough or dyspnea Gastrointestinal Gastrointestinal: Denies nausea or vomiting Genitourinary Genitourinary ED: Denies dysuria or hematuria Musculoskeletal Musculoskeletal: Denies back pain or neck pain Integumentary Reports abscess and rash Neurologic Neurologic: Denies headache(s) or weakness Allergic/Immunologic Allergic/Immunologic ED: Denies mouth swelling or urticaria EXAM Physical Exam Const Vital Signs: 03/20/22 08:01 Temperature 95.6 F L Temperature Source Temporal Pulse Rate 108 H Respiratory Rate 16 Blood Pressure 141/92 H Blood Pressure Mean 108 Pulse Ox 99 Oxygen Delivery Method Room Air Positive well nourished, well developed and obese General Appearance ED: well developed and NAD Nutritional Appearance: obese HEENT Reports moist mucous membranes Neck supple and no JVD Extremity Extremity Narrative: There is tenderness, edema, and erythema over the distal phalanx of the right index finger. There is mild fluctuance along the eponychium. There is no active discharge or drainage. Sensation was intact to light touch in all digits. Capillary refill was less than 2 seconds in all digits. There is no tenderness along the flexor tendon. There is no fusiform swelling. There is good range of motion in flexion extension of the MP, PIP, and DIP joints. General Extremety ED: Yes edema and tenderness General Extremity: edema Neuro oriented x3, CN's II-XII intact bilaterally and no sensory deficits noted Sensorium / Orientation: alert Motor Exam: strength 5/5 throughout Psych mental status grossly normal MDM MDM MDM Narrative Medical decision making narrative: Differential diagnosis includes eponychia, paronychia, felon, and cellulitis. Patient was advised of the need for incision and drainage. Patient is agreeablewith this. Informed consent was signed. The right index finger was cleaned andanesthetized with 1% lidocaine via digital block. A small incision was made over the lateral aspect of the distal phalanx of the right index finger. There is no purulent drainage noted. Bacitracin dressing was applied. Patient was given a dose of clindamycin here. Patient was given a prescription for clindamycin. Patient was instructed to keep the area clean. Patient was instructed to follow-up with her primary care physician in 5 to 7 days. Patientunderstood and was agreeable with the plan. All questions were answered. Discharge Plan Triage Chief Complaint: Cellulitis ED Provider: Gustavo Multani Dx/Rx/DC Orders Clinical Impression: Felon of finger of right hand, Morbid obesity with BMI of 50.0-59.9, adult Instructions: ED Abscess Incision And Drainage, ED Paronychia of the Finger or Toe Prescriptions: New clindamycin HCl 150 mg capsule 450 mg PO TID 10 Days Qty: 90 0RF No Action venlafaxine 25 MG tablet 150 mg PO DAILY dicyclomine 10 mg capsule 10 mg PO TID PRN (Reason: abd pain) Qty: 14 0RF ondansetron 4 mg tablet,disintegrating 4 mg PO Q8H PRN (Reason: nausea and vomiting) Qty: 10 0RF hydrocodone-acetaminophen [hydrocodone-acetaminophen] 1 TABLET tablet 1 tab PO Q8H PRN PRN (Reason: Pain) 2 Days Qty: 6 0RF Primary Care Provider: Care Physician,No Primary Referrals: Care Physician,No Primary [Primary Care Provider] - Disposition Disposition: Home, Self Care What to do if you have Problems For any increased pain, shortness of breath, bleeding, nausea or vomiting, chestpain, or any unexpected problems, contact your Primary Care Provider. Call [facility] ([phone]) or report to the closest Emergency Room. Call 911 if necessary. 03/20/22 1511 <Electronically signed by Gustavo Multani DO> Cosigner Signature (if applicable): CC: No Primary Care Physician ~ Signed [facility] Work Phone: Evaluation + Plan note No data available for this section [facility] Evaluation noteNo assessment information available [facility] Work Phone: Evaluation note* Diagnosis Onset Date Resolution Status Obstructive sleep apnea none active Immunization due noneactive Smokes cigarettes noneactive Establishing care with new doctor, encounter for noneactive Morbid obesity with BMI of 50.0-59.9, adult noneactive Anxiety and depression nonea ctive Screening for breast cancer noneactive [facility] Work Phone: Evaluation note* Diagnosis Onset Date Resolution Status Obstructive sleep apnea none active Immunization due noneactive Smokes cigarettes noneactive Establishing care with new doctor, encounter for noneactive Morbid obesity with BMI of 50.0-59.9, adult noneactive Anxiety and depression nonea ctive Screening for breast cancer noneactive Closed fracture of left fibula acute [facility] Work Phone: Evaluation note* Diagnosis Onset Date Resolution Status Closed fracture of left fibula acute Obstructive sleep apnea none active Smokes cigarettes noneactive Chest pain in adult noneacti ve Morbid obesity with BMI of 50.0-59.9, adult noneactive Anxiety and depression nonea ctive [facility] Work Phone: Evaluation note* Diagnosis Sore throat- Primary Acute pharyngitis Post-nasal drainage Unspecified sinusitis (chronic) Viral URI Acute upper respiratory infections of unspecified site [facility] Additional Instructions 1. Patient is to keep her AO splint clean dry and intact do not remove. Do not get it wet. 2. Please take all medications as prescribed. 3. Please follow your postoperative instructions and continue to rest ice and elevate the left lower extremity as discussed during your surgical consultation. 4. If you have any questions or concerns please reach out to Dr. Montalvo and he will call you back. 5. Please follow-up with Dr. Montalvo in 1 week for postop evaluation in private office. 6. Thank you for letting me be involved in your surgical care. Implant Used?: [facility] Work Phone: Hospital Discharge instructions No data available for this section [facility] Progress note No data available for this section [facility] Chief Complaint and Reason for Visit Chief Complaint REDNESS, EDEMA AND P AIN OF RIGHT 2ND FINGER Chief Complaint REDNESS, EDEMA AND P AIN OF RIGHT 2ND FINGER lower extremity injury, fall Chief Complaint REDNESS, EDEMA AND P AIN OF RIGHT 2ND FINGER lower extremity injury, fall CHEST PAIN Chief Complaint PRE EMPLOY/NON DOT/D RUG SCREEN/1 STEP TB TB READ PE NON DOT PHYSICAL/ RAMÓN AMSTER HEPATITIS B VACCINE/RAMÓN AMSTER 2ND HEP B SHOT/RAMÓN AMSTER lower ext Chief Complaint PRE EMPLOY/NON DOT/D RUG SCREEN/1 STEP TB TB READ PE NON DOT PHYSICAL/ RAMÓN AMSTER HEPATITIS B VACCINE/RAMÓN AMSTER 2ND HEP B SHOT/RAMÓN AMSTER lower ext EST NEW PT Displaced segmental fracture of shaft of left fibu Reason for Visit Obstructive sleep ap caty Immunization due Smokes cigarettes Establishing care with new doctor, encounter for Morbid obesity with BMI of 50.0-59.9, adult Anxiety and depression Screening for breast cancer Chief Complaint HEPATITIS B VACCINE/ RAMÓN AMSTER 2ND HEP B SHOT/RAMÓN AMSTER lower ext EST NEW PT Displaced segmental fracture of shaft of left fibu Reason for Visit Obstructive sleep ap caty Immunization due Smokes cigarettes Establishing care with new doctor, encounter for Morbid obesity with BMI of 50.0-59.9, adult Anxiety and depression Screening for breast cancer Closed fracture of left fibula Chief Complaint 2ND HEP B SHOT/RAMÓN AMSTER lower ext EST NEW PT Displaced segmental fracture of shaft of left fibu SOB Reason for Visit Obstructive sleep ap caty Immunization due Smokes cigarettes Establishing care with new doctor, encounter for Morbid obesity with BMI of 50.0-59.9, adult Anxiety and depression Screening for breast cancer Closed fracture of left fibula Chief Complaint Displaced segmental fracture of shaft of left fibu [facility]/ANXIETY CHEST PAIN CHEST PAIN DISPLACED FX LEFT FIBULA / RX HERE Reason for Visit Closed fracture of l eft fibula Obstructive sleep apnea Smokes cigarettes Chest pain in adult Morbid obesity with BMI of 50.0-59.9, adult Anxiety and depression Advance Directives No Advanced Directives Records Found Advance Directive Response Recorded Date/ Time Living Will No March 20 8:52am Power of Learning And Development Officer No March 20, 2022 8:52am Advance Directive Response Recorded Date/ Time Living Will No March 24, 023 11:22am Power of Learning And Development Officer No March 24, 2022 11:22am Advance Directive Response Recorded Date/ Time Living Will No June 03, 2022 10:39am Power of Learning And Development Officer No June 03 10:39am Advance Directive Response Recorded Date/ Time Living Will No December 06 6:12pm Power of Learning And Development Officer No December 06, 2022 6:12pm Advance Directive Response Recorded Date/ Time Living Will No December 06 5:12pm Power of Learning And Development Officer No December 06, 2022 5:12pm Advance Directive Response Recorded Date/ Time Living Will No January 08 023 10:22am Power of Learning And Development Officer No January 08, 2023 10:22am Advance Directive Response Recorded Date/ Time Living Will No February 11 7:46pm Power of Learning And Development Officer No February 11 7:46pm Advance Directive Response Recorded Date/ Time Living Will No February 25 3:22pm Power of Learning And Development Officer No February 25, 2023 3:22pm Family History No Family History Records Found Relationship Condition Age at Onset Recorded Date/T april Not Specified Depression Unknown mother Complication of surgical procedure Unknow n Disorder of thyroid Unknown aunt Diabetes mellitus Unknown uncle Diabetes mellitus Unknown Summary Purpose Additional Source Comments Source Comments (unrecognize d section and content) In the event this informatio n is protected by the Federal Confidentiality of Alcohol and Drug Abuse Patient Records regulations: The Federal rules restrict any use of the information to criminally investigate or prosecute any alcohol or drug abuse patient.[facility] the event this information is protected by the Federal Confidentiality of Alcohol and Drug Abuse Patient Records regulations: The Federal rules restrict any use of the information to criminally investigate or prosecute any alcohol or drug abuse patient.[facility] Reason for Visit (unrecogniz ed section and content) Reason Comments Forms Reason Comments Sore Throat ST and chest congest ion x 1 day Care Teams (unrecognized sec tion and content) Business Management Intern Relationship Specialty Start Date End Date Ricky Mullen PA-C [address] [place] [address] PCP - General Family Medicine 12/13/18 Team Status: Active Member Role Status Dates No Primary Care Physician Family Provider Active No Primary Care Physician Primary Care Provider Active Team Status: Inactive Member Role Status Dates No Primary Care Physician Primary Care Provider Active Dr. Gustavo Multani DO Emergency Provider Active Team Status: Inactive Member Role Status Dates No Primary Care Physician Primary Care Provider Active Dr. Etta Pardo DO Emergency Provider Active Team Status: Inactive Member Role Status Dates No Primary Care Physician Primary Care Provider Active Dr. Gustavo Multani DO Attending Provider, Emergency P calvin Active Team Status: Inactive Member Role Status Dates No Primary Care Physician Primary Care Provider Active Dr. Etta Pardo DO Attending Provider, Emergency Pro vider Active Team Status: Inactive Member Role Status Dates No Primary Care Physician Primary Care Provider, Refer ring Provider Active Benjie TORRES, PA Attending Provider Active Team Status: Inactive Member Role Status Dates No Primary Care Physician Primary Care Provider, Refer ring Provider Active Kalpesh TORRES, PA Attending Provider Active Team Status: Inactive Member Role Status Dates No Primary Care Physician Primary Care Provider, Refer ring Provider Active Dr. Aide Millan MD Attending Provider Active Team Status: Inactive Member Role Status Dates No Primary Care Physician Primary Care Provider Active Dr. Bhavin Montalvo DPM Attending Provider, Referring Provider Active Team Status: Inactive Member Role Status Dates No Primary Care Physician Primary Care Provider Active Dr. Bhavin Montalvo DPM Attending Provider, Referring Provider Active Dr. Gustavo Luu MD Other Provider Active Team Status: Inactive Member Role Status Dates No Primary Care Physician Primary Care Provider Active Dr. Jaswinder Ramos DO Emergency Provider Active Team Status: Active Member Role Status Dates No Primary Care Physician Family Provider Active Dr. Aide Millan MD Primary Care Provider Active Team Status: Active Member Role Status Dates Dr. Aide Millan MD Primary Care Pro vider, Referring Provider, Other Provider Active Dr. Khoa Villavicencio MD Attending Provider Active Team Status: Inactive Member Role Status Dates No Primary Care Physician Primary Care Provider Active Dr. Jaswinder Ramos DO Attending Provider, Emergency Provider Active Team Status: Active Member Role Status Dates No Primary Care Physician Primary Care Provider Active Dr. Bhavin Montalvo DPM Attending Provider Active Team Status: Inactive Member Role Status Dates Dr. Aide Millan MD Primary Care Pro vider, Attending Provider, Referring Provider Active Goals (unrecognized section and content) Goals may be documented in a n alternate sectionGoals may be documented in an alternate sectionGoals may be documented in an alternate sectionGoals may be documented in an alternate sectionGoals may be documented in an alternate section No data available for this section INFORMATION SOURCE (unrecogn ized section and content) DATE CREATED AUTHOR 02/24/2023 [email or web address] ([facility] DATE CREATED AUTHOR AUTHOR'S ORGANIZ ATION 02/20/2024 [facility] DATE CREATED AUTHOR AUTHOR'S ORGANIZ ATION 03/02/2024 [facility] DATE CREATED AUTHOR AUTHOR'S ORGANIZ ATION 12/21/2024 [facility] FOR RECORDS PERTAINING TO PATIENTS WHO ARE [...] BE BASED ON THE PRIMARY CLINICAL RECORDS. [employer] provides no warranty or guarantee of the accuracy or completeness of information in this document.
[2025-02-06 21:28] VITALS: O2SAT 98; BMI 54.7
[2025-02-06 21:30] VITALS: BP 139/94
--- NOTE | 2025-02-06 21:50 | ED.VIS.CHEST ---
HPI History of Present Illness Chief Complaint: Chest Pain Informant: patient Narrative Narrative: 44-year-old female presenting to the emergency room for the evaluation of chest pain. Patient states that since Thursday she really has not felt good. Yesterday she was getting an intermittent left central chest pain that would come and go. She felt jittery on the inside. She was having "bone crushing pain" in the left arm that would also come and go. She thought it was possibly her anxiety so she went to bed. Today she has been continuing to experience that was concerned that she was having a medical emergency. She states that she takes Ativan occasionally for pain but does not like to rely on it. The patient denies any leg symptoms. She denies any DVT PE risk factors. She denies feeling "sick like influenza". No myalgias abdominal pain vomiting diarrhea cough rhinorrhea or sore throat. No rashes. [facility] Medical History Wears glasses High cholesterol Restless legs Heartburn Shortness of breath on exertion CPAP (continuous positive airway pressure) dependence Sleep apnea Smoker PONV (postoperative nausea and vomiting) Gallstones History of blood transfusion Anxiety Depression Home Medications Medication Instructions Recorded Last Taken Type lamotrigine 200 mg tablet 200 mg PO DAILY 12/10/22 01/12/23 History lorazepam 0.5 mg tablet 0.5 mg PO DAILY PRN anxiety 12/10/22 01/12/23 06:00 History venlafaxine 150 mg 150 mg PO DAILY 12/10/22 01/12/23 History capsule,extended release 24 hr Allergy/AdvReac Type Severity Reaction Status Date / Time Penicillins Allergy Mild Itching Verified 02/06/25 20:00 Family History Mother Surgical complication passed after gastric bypass Thyroid disorder Aunt Diabetes Uncle Diabetes Other Depression Surgical History History of surgery on lower extremity H/O wrist surgery Hx of dilation and curettage Hx of tubal ligation Hx of tonsillectomy History of cholecystectomy Social History household members: significant other and children number of children: 2 current occupational status: employed current occupation: [employer] Smoking Status: Current every day smoker tobacco type: cigarettes and e-cigarettes Electronic Cigarette Use: not used alcohol intake: never substance use type: does not use do you feel safe at home: Yes ROS ROS ED Constitutional Constitutional ED: Denies chills or weight loss Eyes Eyes: Denies change in vision or diplopia ENT ENT ED: Denies ear pain, rhinorrhea or sore throat Cardiovascular Cardiovascular: Reports as per HPI and chest pain; Denies orthopnea, palpitations or racing heartbeat Respiratory/Chest Respiratory/Chest: Denies cough, dyspnea or orthopnea Gastrointestinal Gastrointestinal: Denies abdominal pain, diarrhea, nausea or vomiting Genitourinary Genitourinary ED: Denies dysuria, hematuria or urinary frequency Musculoskeletal Musculoskeletal: Reports other Details: Left arm pain ; Denies arthralgias or myalgias Integumentary Denies abscess or rash Neurologic Neurologic: Denies headache(s) or weakness Psychiatric Psychiatric: Denies anxiety, depression, suicidal ideation or suicidal thoughts Endocrine Endocrinology: Denies polydipsia, polyphagia or polyuria Allergic/Immunologic Allergic/Immunologic ED: Denies mouth swelling, tongue swelling or urticaria EXAM Physical Exam Const Vital Signs: 02/06/25 20:00 02/06/25 21:28 02/06/25 21:30 Temperature 97.1 F L Temperature Source Temporal Pulse Rate 105 H Respiratory Rate 18 Blood Pressure 171/113 H 139/94 H Blood Pressure Mean 132 109 Pulse Ox 94 98 Oxygen Delivery Method Room Air Room Air 02/06/25 23:00 02/07/25 00:20 Temperature 98 F Temperature Source Pulse Rate 88 80 Respiratory Rate 16 18 Blood Pressure 124/93 H 140/77 H Blood Pressure Mean 103 98 Pulse Ox 97 99 Oxygen Delivery Method Room Air Positive well nourished and well developed General Appearance ED: well developed and NAD HEENT Reports normocephalic, head/scalp atraumatic and moist mucous membranes Eyes PERRL and EOMs intact bilaterally Neck no lymphadenopathy, supple and no JVD Resp normal respiratory effort and clear to auscultation bilaterally Cardio regular rate, regular rhythm and no murmurs GI normal to inspection, nondistended, normoactive bowel sounds and non-tender Palpation: soft Back/Spine no CVA tenderness and normal ROM Extremity normal to inspection General Extremety ED: Negative for edema General Extremity: Negative for edema Neuro oriented x3 and CN's II-XII intact bilaterally Sensorium / Orientation: alert Motor Exam: strength 5/5 throughout Psych mental status grossly normal Mood & Affect: Negative for depressed or tearful Skin no rashes or lesions noted and no wounds MDM MDM MDM Narrative Medical decision making narrative: Differential diagnosis includes acute coronary syndrome cardiac dysrhythmia pulmonary embolism pneumothorax pneumonia aortic dissection/aneurysm EKG is nonischemic. 2 sets of cardiac enzymes are less than 6. D-dimer is elevated 0.77 however her CTA does not demonstrate an obvious clinically significant pulmonary embolism. CBC and BMP unremarkable. Patient received a dose of Ativan. Heart rate is down to the 80s range. Blood pressure is significantly better. At this point I believe the patient can be discharged home. Instructions to follow-up with her doctor if blood pressure continues to be elevated or if she has continued symptoms. Return if worsening or concerns History & Record Review Discussion w/independent historian: Patient Lab Data Attestation: I reviewed the patient's lab results. Labs: Laboratory Results - last 24 hr 02/06/25 02/06/25 02/06/25 20:20 21:30 22:21 WBC 10.1 RBC 4.91 Hgb 13.9 Hct 42.7 MCV 87.0 MCH 28.3 MCHC 32.6 RDW Std Deviation 49.8 H RDW Coeff of Tom 15.7 H Plt Count 390 MPV 10.7 Immature Gran % (Auto) 0.200 Neut % (Auto) 59.2 Lymph % (Auto) 32.7 [place] % (Auto) 6.8 Eos % (Auto) 0.4 Baso % (Auto) 0.7 Absolute Neuts (auto) 6.0 Absolute Lymphs (auto) 3.31 Nucleated RBC % 0 D-Dimer Quant (PE/DVT) 0.77 H* Sodium Cancelled 136 Potassium Cancelled 3.9 Chloride Cancelled 102 Carbon Dioxide Cancelled 22.6 Anion Gap Cancelled 12 BUN Cancelled 9 Creatinine Cancelled 0.76 Estim Creat Clear Calc 132.38 Est GFR (MDRD) Non-Af Cancelled 97 BUN/Creatinine Ratio Cancelled 11.2 Glucose Cancelled 93 Calcium Cancelled 9.1 Troponin T High Sens < 6 Troponin T Hi Sens 2 Hr < 6 Radiography Diagnostic Testing: Clinical Impression(s) from Imaging Studies Chest X-Ray 02/06/25 20:27 IMPRESSION: No acute cardiopulmonary disease. Reading Location: [facility] Chest CTA 02/06/25 22:35 IMPRESSION: No acute cardiopulmonary findings. No pulmonary embolism. Reading Location: [facility] EKG Initial EKG: Attestation: I personally reviewed and interpreted this EKG as follows: Comments: Normal sinus rhythm ventricular rate of 100 bpm Discharge Plan Triage Chief Complaint: Chest Pain ED Provider: Marcellus Howard Dx/Rx/DC Orders Clinical Impression: Chest pain, Hypertension Instructions: ED Chest Pain, Noncardiac Prescriptions: No Action lamotrigine 200 mg tablet 200 mg PO DAILY lorazepam 0.5 mg tablet 0.5 mg PO DAILY PRN (Reason: anxiety) venlafaxine 150 mg capsule,extended release 24hr 150 mg PO DAILY Primary Care Provider: Aide Millan Referrals: Aide Millan MD [Primary Care Provider, Internal Medicine] - 1-2 Weeks Referral Note: Please monitor your blood pressure. Discuss with your doctor if your pressures continue to be elevated Print Language: Korean Disposition Disposition: Home, Self Care Discharge Date/Time: 02/07/25 00:22
[2025-02-06 22:12] LABS: D-Dimer Quantitative (DVT/PE) 0.77 FEU/ug/m (0.27-0.49)
[2025-02-06 22:33] LABS: Anion Gap 12 (7-18); BUN 9 mg/dL (4-19); BUN/Creat Ratio 11.2 RATIO (10-20); Calcium,Total 9.1 mg/dL (7.6-11.0); Carbon Dioxide 22.6 mmol/L (20.0-29.0); Chloride 102 mmol/L (96-106); Estimated Creatinine Clearance 132.38 ml/min (50-250); Glucose 93 mg/dL (70-99); Potassium 3.9 mmol/L (3.5-5.1)
--- NOTE | 2025-02-06 22:35 | CT_ITS ---
PROCEDURE: CTA CHEST W/WO CONTRAST 02/06/2025 REASON FOR EXAM: PULMONARY EMBOLISM, ELEVATED DDIMER TECHNIQUE: Procedure Code: [id number] Modality: CT Procedure: CTA CHEST W/WO CONTRAST Multiplanar Sagittal and Coronal images were obtained. One or more dose reduction techniques were used (e.g., Automated exposure control, adjustment of the mA and/or kV according to patient size, use of iterative reconstruction technique). RADIATION DOSE SUMMARY: DLP: 569.54 mGycm FINDINGS: The lower neck is unremarkable. Heart: The heart size is unremarkable. There is no pericardial effusion. There is coronary artery atherosclerosis. Pulmonary Vessels: There is no pulmonary embolism. Hardware: There is no orthopedic hardware. Lymph nodes: There is no lymphadenopathy. Lungs and Airways: There are no consolidations, masses, or nodules. Pleura: No pleural effusions. No pneumothoraces. Upper Abdomen: The upper abdomen is unremarkable. Bones: Unremarkable. CT/CTA Chest W/WO Contrast IMPRESSION: No acute cardiopulmonary findings. No pulmonary embolism. Reading Location: [id number]
[2025-02-06 23:00] VITALS: BP 124/93; PULSE 88; RESP 16; O2SAT 97
[2025-02-06 23:05] LABS: Troponin T High Sens 2 HR < 6 ng/L (<=14)
[2025-02-07 00:20] VITALS: BP 140/77; PULSE 80; RESP 18; TEMP 36.6; O2SAT 99
== END 2025-02-07 00:22 | disposition home or self-care (01) ==
PROVIDERS: Emergency Provider Emergency Medicine; PCP Internal Medicine; Visit Provider Emergency Medicine
DX: R07.9 Chest pain, unspecified (principal); M79.602 Pain in left arm; I10 Essential (primary) hypertension; F17.210 Nicotine dependence, cigarettes, uncomplicated
CPT/HCPCS: 71045; 71275; 80048; 84484; 85025; 85379; 93005; 99284; Q9967; A4216